=== PATIENT | male | born 1970 | race Caucasian/White ===

== ENCOUNTER 2016-11-02 23:47 | Emergency (ER) | payer MEDICARE ==
[~2016-11-02 23:47] MED LIST: ATOR10TA60 PO; DIVA250T6 PO; FAMO20TA5 PO; FENO160T PO; FURO20TA3 PO; GABA-587 PO; HYDR25TA9 PO; INSU100I13 SQ; INSU100I15 SQ; LEVO75TA5 PO; LISI-334 PO; LORA-434 PO; METH10TA2 PO; POTA20TA4 PO; RAMI2.5C PO; SPIR25TA3 PO
[2016-11-03 00:22] LABS: BILIRUBIN,URINE NEGATIVE (NEG); GLUCOSE,URINE >=1000 mg/dL (NEG); NITRITE,URINE NEGATIVE (NEG); PH,URINE 5.5; PROTEIN,URINE NEGATIVE (NEG-TRACE); UROBILINOGEN,URINE 0.2 mg/dL (0.2 mg/dL)
[2016-11-03 00:28] LABS: RBC,URINE 0 /HPF (0-2); WBC,URINE OCC /HPF (0-4)
[2016-11-03 00:29] LABS: BACTERIA,URINE 0 /HPF (0-FEW); SQUAMOUS EPITHELIAL CELL,UR FEW /LPF
[2016-11-03] MEDS ORDERED: INSULIN REGULAR 100 UNIT/ML 10ML VIAL. IV ONE (00:30)
[2016-11-03] MEDS ORDERED: IV NORMAL SALINE 1000ML BAG 1,000 ML IV ONE ×2 (00:30)
[2016-11-03 00:54] LABS: BASO # 0.1 x10^3/uL (0.0-0.2); BASO % 2 % (0-3); EOS % 1 % (0-3); HEMATOCRIT 39.1 % (39.0-53.0); HEMOGLOBIN 13.2 g/dL (13.0-17.5); LYMPH # 2.3 x10^3/uL (1.0-4.8); LYMPH % 43 % (24-48); MEAN CORPUSCULAR HEMOGLOBIN 33 pg (25-35); MEAN CORPUSCULAR HGB CONC 34 g/dL (31-37); MEAN CORPUSCULAR VOLUME 96 fL (79-100); MONO % 6 % (0-9); NEUT % 48 % (31-73); PLATELET COUNT 250 x10^3/uL (140-400); RED BLOOD COUNT 4.07 x10^6/uL (4.30-5.70); RED CELL DISTRIBUTION WIDTH 14.5 % (11.5-14.5); WHITE BLOOD COUNT 5.3 x10^3/uL (4.0-11.0)
[2016-11-03 01:05] LABS: CALCIUM 8.8 mg/dL (8.5-10.1); CREATININE 0.8 mg/dL (0.7-1.3); POTASSIUM 3.2 mmol/L (3.5-5.1)
[2016-11-03 01:11] LABS: ETHANOL 198 mg/dL (0-10)
[2016-11-03 01:12] LABS: ALBUMIN 3.7 g/dL (3.4-5.0); ALBUMIN/GLOBULIN RATIO 0.9 (1.0-1.7); TOTAL BILIRUBIN 0.3 mg/dL (0.2-1.0); TOTAL PROTEIN 7.6 g/dL (6.4-8.2)
--- NOTE | 2016-11-03 01:12 | PHYS DOC ---
Past Medical History Past Medical History: Diabetes-Type II Additional Past Medical Histor: Legally blind Past Surgical History: Other Additional Past Surgical Histo: Titanium plate placed to the right side due to crushed ribs. Alcohol Use: Heavy Drug Use: None Adult General Chief Complaint Chief Complaint: MECHANICAL FALL [facility] HPI Patient is a 46 year old male brought in by EMS for evaluation of mid back pain status post fall. Patient is obviously quite intoxicated and said he was walking and slipped and fell from a standing height and landed on his butt and now his mid back hurts. He says that he called 911 and EMS brought him in because his blood sugar was quite elevated. Patient denies any head neck chest abdomen or extremity pain or trauma. He is alert and oriented 3 however seem somewhat sleepy due to his intoxication. He says that he only drank 2 mixed drinks. Review of Systems Review of Systems Constitutional: Denies fever or chills [] Eyes: Denies change in visual acuity, redness, or eye pain [] HENT: Denies nasal congestion or sore throat [] Respiratory: Denies cough or shortness of breath [] Cardiovascular: No additional information not addressed in HPI [] GI: Denies abdominal pain, nausea, vomiting, bloody stools or diarrhea [] : Denies dysuria or hematuria [] Musculoskeletal: + back pain. No joint pain [] Integument: Denies rash or skin lesions [] Neurologic: Denies headache, focal weakness or sensory changes [] Current Medications Current Medications Current Medications Medications (Trade) Dose Ordered Sig/Cole Start Time Stop Time Status Last Admin Dose Admin Insulin Human Regular (Novolin R Vial) 10 unit 1X ONCE 11/03/16 00:30 11/03/16 00:31 DC 11/03/16 00:56 10 UNIT Potassium Chloride (Klor-Con) 40 meq 1X ONCE 11/03/16 01:30 11/03/16 01:31 UNV Sodium Chloride (Iv Sodium Chloride 0.9% 1000ml Bag) 1,000 ml @ 1,000 mls/hr 1X ONCE 11/03/16 00:30 11/03/16 01:29 11/03/16 00:17 1,000 MLS/HR Allergies Allergies Allergies Coded Allergies Type Severity Reaction Last Updated Verified amoxicillin Allergy Intermediate 08/30/15 Yes clavulanic acid Allergy Intermediate 2/26/16 Yes Physical Exam Physical Exam Constitutional: Well developed, well nourished, no acute distress, non-toxic appearance. [] HENT: Normocephalic, atraumatic, bilateral external ears normal, oropharynx moist, no oral exudates, nose normal. [] Eyes: PERRLA, EOMI, conjunctiva normal, no discharge. [] Neck: Normal range of motion, no tenderness, supple, no stridor. [] Cardiovascular:Heart rate regular rhythm, no murmur [] Lungs & Thorax: Bilateral breath sounds clear to auscultation [] Abdomen: Bowel sounds normal, soft, no tenderness, no masses, no pulsatile masses. [] Skin: Warm, dry, no erythema, no rash. [] Back: + midline t spine tenderness, no CVA tenderness. [] Extremities: No tenderness, no cyanosis, no clubbing, ROM intact, no edema. [] Neurologic: Alert and oriented X 3, normal motor function, normal sensory function, no focal deficits noted. [] Current Patient Data Vital Signs Vital Signs Date Time Temp Pulse Resp B/P Pulse Ox O2 Delivery O2 Flow Rate FiO2 11/02/16 23:59 98.1 103 18 133/71 96 Room Air 98.1 Lab Values Laboratory Tests Test 11/03/16 00:15 11/03/16 00:46 Urine Collection Type Unknown Urine Color Yellow Urine Clarity Cloudy Urine pH 5.5 Urine Specific [place] >=1.030 Urine Protein Negativemg/dL (NEG-TRACE) Urine Glucose (UA) >=1000mg/dL (NEG) Urine Ketones (Stick) 15mg/dL (NEG) Urine Blood Negative (NEG) Urine Nitrite Negative (NEG) Urine Bilirubin Negative (NEG) Urine Urobilinogen Dipstick 0.2mg/dL (0.2 mg/dL) Urine Leukocyte Esterase Negative (NEG) Urine RBC 0/HPF (0-2) Urine WBC Occ/HPF (0-4) Urine Squamous Epithelial Cells Few/LPF Urine Bacteria 0/HPF (0-FEW) White Blood Count 5.3x10^3/uL (4.0-11.0) Red Blood Count 4.07x10^6/uL (4.30-5.70) L Hemoglobin 13.2g/dL (13.0-17.5) Hematocrit 39.1% (39.0-53.0) Mean Corpuscular Volume 96fL (79-100) Mean Corpuscular Hemoglobin 33pg (25-35) Mean Corpuscular Hemoglobin Concent 34g/dL (31-37) Red Cell Distribution Width 14.5% (11.5-14.5) Platelet Count 250x10^3/uL (140-400) Neutrophils (%) (Auto) 48% (31-73) Lymphocytes (%) (Auto) 43% (24-48) Monocytes (%) (Auto) 6% (0-9) Eosinophils (%) (Auto) 1% (0-3) Basophils (%) (Auto) 2% (0-3) Neutrophils # (Auto) 2.5x10^3uL (1.8-7.7) Lymphocytes # (Auto) 2.3x10^3/uL (1.0-4.8) Monocytes # (Auto) 0.3x10^3/uL (0.0-1.1) Eosinophils # (Auto) 0.1x10^3/uL (0.0-0.7) Basophils # (Auto) 0.1x10^3/uL (0.0-0.2) Sodium Level 135mmol/L (136-145) L Potassium Level 3.2mmol/L (3.5-5.1) L Chloride Level 97mmol/L (98-107) L Carbon Dioxide Level 25mmol/L (21-32) Anion Gap 13 (6-14) Blood Urea Nitrogen 11mg/dL (8-26) Creatinine 0.8mg/dL (0.7-1.3) Estimated GFR (Cockcroft-Gault) 105.0 BUN/Creatinine Ratio 14 (6-20) Glucose Level 287mg/dL (70-99) H Calcium Level 8.8mg/dL (8.5-10.1) Total Bilirubin 0.3mg/dL (0.2-1.0) Aspartate Amino Transferase (AST) 38U/L (15-37) H Alanine Aminotransferase (ALT) 32U/L (16-63) Alkaline Phosphatase 80U/L (46-116) Total Protein 7.6g/dL (6.4-8.2) Albumin 3.7g/dL (3.4-5.0) Albumin/Globulin Ratio 0.9 (1.0-1.7) L Lipase 46U/L (73-393) L Salicylates Level 5.8mg/dL (2.8-20.0) Salicylate Last Dose Date Salicylate Last Dose Time Acetaminophen Level < 2mcg/ml (10-30) L Acetaminophen Last Dose Date Acetaminophen Last Dose Time Ethyl Alcohol Level 198mg/dL (0-10) H Laboratory Tests 11/03/16 00:46 Laboratory Tests 11/03/16 00:46 EKG EKG [] Radiology/Procedures Radiology/Procedures T-spine x-rays show no obvious fracture or soft tissue deformity. He has some dilated bowel loops on AP view. Course & Med Decision Making Course & Med Decision Making Patient has very minor trauma mechanism. We will get some screening labs treat him with IV fluids and insulin and then reassess. Patient has no signs of ketoacidosis. There is a few ketones in his urine. He is not acidotic. Patient given several liters of fluids and insulin and now his blood sugar is closer to normal. His repeat neurologic exam is normal and he says that he has no pain now. Patient is alert and oriented 3 and can ambulate with a steady gait so he'll be discharged home. Patient aware and agreeable with plan for discharge and close understanding of the need for short- term follow-up and strict ER return precautions discussed worsening pain fever vomiting or vaginal concerns. Dragon Disclaimer Dragon Disclaimer This electronic medical record was generated, in whole or in part, using a voice recognition dictation system. 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
[2016-11-03 01:30] VITALS: BP 138/90
[2016-11-03] MEDS ORDERED: POTASSIUM CHLORIDE 20 MEQ TABLET.ER. PO ONE (02:00)
--- NOTE | 2016-11-03 07:44 | RAD ---
Indication pain associated with a fall. AP and lateral views of the thoracic spine were obtained as well as a swimmer's view and a view targeted to the thoracolumbar junction. Postoperative changes are seen associated with multiple right ribs. There is suspect bony demineralization. An acute bony finding is not seen. IMPRESSION: No acute bony finding
== END 2016-11-03 01:45 | disposition home or self-care (01) ==
LOC: ER 23:47
DX: E11.65 Type 2 diabetes mellitus with hyperglycemia (principal); E87.6 Hypokalemia; M54.6 Pain in thoracic spine; F10.10 Alcohol abuse, uncomplicated; W01.0XXA Fall on same level from slipping, tripping and stumbling without subsequent striking against object, initial encounter; Y93.89 Activity, other specified; Y99.8 Other external cause status; Y92.89 Other specified places as the place of occurrence of the external cause
CPT/HCPCS: 36415; 72072; 80053; 80305; 80320; 81001; 83690; 85027; 96361; 96374; 99285; G6038; J1815; J7030; G0480; 80196

== ENCOUNTER 2016-11-07 16:53 | Inpatient (IN) | payer MEDICARE ==
[~2016-11-07] VITALS: Ht 167.6 cm; Wt 70.8 kg
[2016-11-07] VITALS (10 sets, daily range): BP systolic 83–150; BP diastolic 60–99
[~2016-11-07 16:53] MED LIST changes: +NALOXONE 2 MG/2 ML DISP.SYRIN. ONE
[2016-11-07] MEDS ORDERED: MIDAZOLAM PREMIX 100 ML IV ONE ×2 (17:24→18:45)
[2016-11-07] MEDS ORDERED: INSULIN REGULAR IV ONE (17:34)
[2016-11-07 18:07] LABS: BILIRUBIN,URINE MODERATE (NEG); GLUCOSE,URINE >=1000 mg/dL (NEG); NITRITE,URINE NEGATIVE (NEG); PROTEIN,URINE 30 mg/dL (NEG-TRACE)
[2016-11-07] MEDS: IV NORMAL SALINE 1000ML BAG 1,000 ML IV SCH ×2 (18:07→19:00)
[2016-11-07 18:10] LABS: HCO3 ABG 5 mmol/L (21-28); PCO2 ABG 25 mmHg (35-46); PO2 ABG 134 mmHg (75-108); SAT O2 ABG 98 % (92-99)
[2016-11-07 18:11] LABS: FIO2 ABG 40; PH ABG 6.87 (7.35-7.45)
[2016-11-07 18:14] LABS: BARBITURATES NEG (NEG); BENZODIAZEPINES NEG (NEG); CANNABINOIDS NEG (NEG); COCAINE NEG (NEG); METHADONE NEG (NEG); OPIATES NEG (NEG); PHENCYCLIDINE NEG (NEG)
[2016-11-07 18:19] LABS: BACTERIA,URINE 0 /HPF (0-FEW); RBC,URINE RARE /HPF (0-2); SQUAMOUS EPITHELIAL CELL,UR OCC /LPF; WBC,URINE 0 /HPF (0-4)
[2016-11-07] MEDS ORDERED: ETOMIDATE 20 MG/10 ML VIAL. IV ONE (18:22)
[2016-11-07] MEDS ORDERED: MIDAZOLAM HCL/PF 5 MG/5 ML VIAL. ONE (18:23)
[2016-11-07] MEDS ORDERED: ROCURONIUM 50 MG/5 ML VIAL. ONE (18:23)
--- NOTE | 2016-11-07 18:24 | PHYS DOC ---
Past Medical History Past Medical History: Alcoholism, Diabetes-Type II Additional Past Medical Histor: Legally blind Past Surgical History: Other Additional Past Surgical Histo: Titanium plate placed to the right side due to crushed ribs. Alcohol Use: Heavy Drug Use: None Adult General Chief Complaint Chief Complaint: ALTERED MENTAL STATUS HPI HPI Patient is a 46 year old male who presents with altered mental status. Patient brought to the emergency department by EMS. Patient found in an obtunded state on their arrival. Unknown who contacted EMS. Patient has history of Diabetes Mellitus. Patient currently responsive only to painful stimulus and does not provide any history. EMS states patient has been admitted in the past for DKA. Note history of alcoholism. No further information available at time patient was received. Review of Systems Review of Systems Unable to obtain, patient obtunded. Current Medications Current Medications Current Medications Medications (Trade) Dose Ordered Sig/Cole Start Time Stop Time Status Last Admin Dose Admin Insulin Human Regular 0 ml @ As Directed STK-MED ONCE 11/07/16 17:34 11/07/16 17:35 DC Levofloxacin/ Dextrose 150 ml @ 100 mls/hr Q24H 11/07/16 17:00 11/07/16 21:16 100 MLS/HR Midazolam HCl 100 ml @ As Directed STK-MED ONCE 11/07/16 17:24 11/07/16 17:25 DC Allergies Allergies Allergies Coded Allergies Type Severity Reaction Last Updated Verified amoxicillin Allergy Intermediate 08/30/15 Yes clavulanic acid Allergy Intermediate 08/30/15 Yes Physical Exam Physical Exam Constitutional: Obtunded, tachypneic, moans to painful stimulus. [] HENT: Normocephalic, atraumatic, bilateral external ears normal, dry mucous membranes Eyes: Pupils 4 mm, non reactive (hx of blindness), conjunctiva normal, no discharge. [] Neck: Normal range of motion, no tenderness, supple, no stridor. [] Cardiovascular:Tachycardia, normal rhythm, no murmur [] Lungs & Thorax: Tachypneic, breath sounds clear, no chest wall bruising [] Abdomen: Bowel sounds normal, soft, no tenderness, no masses, no pulsatile masses. [] Skin: Warm, dry, no erythema, no rash. [] Extremities: No tenderness, no cyanosis, no clubbing, thready distal pulses. [] Neurologic: Obtunded, moans to painful stimulus and moves all extremities to painful stimulus. [] Current Patient Data Vital Signs Vital Signs Date Time Temp Pulse Resp B/P (MAP) Pulse Ox O2 Delivery O2 Flow Rate FiO2 11/07/16 17:45 128 24 138/86 (103) 99 Ventilator 11/07/16 16:58 98.4 6.0 98.4 Lab Values Laboratory Tests Test 11/07/16 17:00 11/07/16 17:22 11/07/16 17:50 Lactic Acid Level 1.6 mmol/L (0.4-2.0) O2 Saturation 98 % (92-99) Arterial Blood pH 6.87 (7.35-7.45) *L Arterial Blood pCO2 at Patient Temp 25 mmHg (35-46) L Arterial Blood pO2 at Patient Temp 134 mmHg (75-108) H Arterial Blood HCO3 5 mmol/L (21-28) L Arterial Blood Base Excess -28 mmol/L (-3-3) L FiO2 40 Urine Collection Type Unknown Urine Color Yellow Urine Clarity Cloudy Urine pH 5.0 Urine Specific [place] 1.025 Urine Protein 30 mg/dL (NEG-TRACE) Urine Glucose (UA) >=1000 mg/dL (NEG) Urine Ketones (Stick) 40 mg/dL (NEG) Urine Blood Moderate (NEG) Urine Nitrite Negative (NEG) Urine Bilirubin Moderate (NEG) Urine Urobilinogen Dipstick 1.0 mg/dL (0.2 mg/dL) Urine Leukocyte Esterase Negative (NEG) Urine RBC Rare /HPF (0-2) Urine WBC 0 /HPF (0-4) Urine Squamous Epithelial Cells Occ /LPF Urine Bacteria 0 /HPF (0-FEW) Urine Opiates Screen Neg (NEG) Urine Methadone Screen Neg (NEG) Urine Barbiturates Neg (NEG) Urine Phencyclidine Screen Neg (NEG) Urine Amphetamine/Methamphetamine Pos (NEG) Urine Benzodiazepines Screen Neg (NEG) Urine Cocaine Screen Neg (NEG) Urine Cannabinoids Screen Neg (NEG) Urine Ethyl Alcohol Neg (NEG) EKG EKG Interpreted by me: Heart rate 123, sinus tachycardia, normal intervals, normal axis, T-wave inversions in the inferior leads and in V5 and V6, no acute ST elevations or depressions [] Radiology/Procedures Radiology/Procedures 1 view AP chest x-ray interpreted by me: ET and CVL in adequate position, Left lower lobe infiltrate, no pneumothorax [facility] [address] [place] [address] IMAGING REPORT Signed PATIENT: HELEN GONZALEZ ACCOUNT: [id number] : 1970 LOCATION: [address] [place] [address] AGE: 46 SEX: M EXAM STATUS: ADM IN ORD. PHYSICIAN: YOGI CANDELARIA MD REASON: altered mental status PROCEDURE: CT HEAD WO CONTRAST PROCEDURE CT of the head without contrast HISTORY Altered mental status. TECHNIQUE Axial noncontrast images obtained through the head. Exposure: One or more of the following individualized dose reduction techniques were utilized for this exam: 1. Automated exposure control. 2. Adjustment of the mA and/or kV according to patient size. 3. Use of iterative reconstruction technique. COMPARISON None FINDINGS No evidence of acute intracranial hemorrhage. No mass effect, midline shift or abnormal extra-axial fluid collection. Mild enlargement of ventricles and sulci compatible with mild atrophy, for the patient's age. The orbits appear unremarkable. No evidence of depressed skull fracture. Partially visualized sinuses are clear. IMPRESSION 1. Mild atrophy and ventriculomegaly, considering the patient's age. 2. No evidence of acute intracranial pathology. Electronically signed by: Bismark Ballesteros MD (November 07, 2016 19:19:04) DICTATED and SIGNED BY: BISMARK BALLESTEROS MD DATE: 11/07/161917 CC: YOGI CANDELARIA MD; SHAILESH BANKS MD; KEILA DEL REAL MD ~ [] Course & Med Decision Making Course & Med Decision Making Pertinent Labs and Imaging studies reviewed. (See chart for details) Due to hemodynamic instability and severely depressed mental status, the patient was moved into the trauma bay for aggressive intervention. The patient was then intubated for airway protection and to improve oxygenation. The patient initially had an IO placed in the right humerus as peripheral IV axis was unable to be obtained. After patient was intubated, the patient was prepped for a central venous line placed in the right IJ as outlined in the procedure note. The patient was found to be severely acidotic with a pH level of 6.8. Patient's blood sugar was found to be over 700. Patient was aggressively hydrated with IV fluids and was switched to a sodium bicarbonate drip due to severe acidosis. Patient's heart rate is improving and blood pressure has remained stable. Patient will be admitted to ICU for further care and initiation of insulin drip. I spoke with Dr. Del Real who accepted care of patient in hospital. I also spoke with Dr. Hewitt of pulmonology who agreed to consult on patient in hospital. Critical care time excluding procedures: 60 minutes Dragon Disclaimer Dragon Disclaimer This electronic medical record was generated, in whole or in part, using a voice recognition dictation system. Intubation Procedure Intub Indication: Patient in coma, hypoxic, airway protection necessary Consent: Unable to give consent due to emergent nature. Medications Used: see nursing note Procedure: The patient was placed in the appropriate position. Intubation was performed under direct laryngoscopy with placement of a 7.5 endotracheal tube. Secured at 20 cm at the lip. Initial confirmation of placement included bilateral breath sounds, tube fogging, adequate chest rise, adequate pulse oximetry reading. A chest x-ray to verify correct placement of the tube showed appropriate tube position. The patient tolerated the procedure well. Complications: none. Central Line Placement Proc Central Line Indication: Vascular access, critical illness Consent: The patient provided consent for this procedure. Procedure: The patient was positioned appropriately and the skin over the right internal jugular was prepped and draped in a sterile fashion. Local anesthesia was used. Ultrasound guidance utilized. A large bore needle was used to identify the vein. A guide wire was then inserted into the vein through the needle. A triple lumen catheter was then inserted into the vessel over the guide wire using the Seldinger technique. All ports showed good, free flowing blood return and were flushed with saline solution. The catheter was then securely fastened to the skin with sutures and covered with a sterile dressing. A post procedure X-ray was ordered. The patient tolerated the procedure well. Complications: none. [] Departure Departure Impression: Primary Impression: Acute metabolic encephalopathy Additional Impressions: Diabetic ketoacidosis Community acquired bacterial pneumonia Acute renal failure Disposition: 09 ADMITTED INPATIENT Admitting Physician: Keila Del Real Condition: CRITICAL Referrals: SHAILESH BANKS MD (PCP) Problem Qualifiers Additional Impressions: Diabetic ketoacidosis Diabetes mellitus type: type 2 Diabetes mellitus complication detail: with coma Qualified Codes: E13.11 - Other specified diabetes mellitus with ketoacidosis with coma Acute renal failure Acute renal failure type: unspecified Qualified Codes: N17.9 - Acute kidney failure, unspecified FOLAND,YOGI J MD November 07, 2016 18:24
[2016-11-07] MEDS ORDERED: SODIUM BICARBONATE VIAL 150 MEQ in IV STERILE WATER 1,000 ML IV SCH (18:30)
[2016-11-07] MEDS ORDERED: ONDANSETRON PF 4 MG/2 ML VIAL. IV PRN (18:45)
[2016-11-07] MEDS ORDERED: levOFLOXacin PER PHARMACY. MC PRN (18:45)
[2016-11-07 19:02] LABS: ALBUMIN 3.4 g/dL (3.4-5.0); ALBUMIN/GLOBULIN RATIO 0.8 (1.0-1.7); CALCIUM 9.4 mg/dL (8.5-10.1); CREATININE 2.1 mg/dL (0.7-1.3); GFR 34.5; TOTAL BILIRUBIN 0.8 mg/dL (0.2-1.0); TOTAL PROTEIN 7.6 g/dL (6.4-8.2)
--- NOTE | 2016-11-07 19:20 | RAD ---
PROCEDURE CT of the head without contrast HISTORY Altered mental status. TECHNIQUE Axial noncontrast images obtained through the head. Exposure: One or more of the following individualized dose reduction techniques were utilized for this exam: 1. Automated exposure control. 2. Adjustment of the mA and/or kV according to patient size. 3. Use of iterative reconstruction technique. COMPARISON None FINDINGS No evidence of acute intracranial hemorrhage. No mass effect, midline shift or abnormal extra-axial fluid collection. Mild enlargement of ventricles and sulci compatible with mild atrophy, for the patient's age. The orbits appear unremarkable. No evidence of depressed skull fracture. Partially visualized sinuses are clear. IMPRESSION 1. Mild atrophy and ventriculomegaly, considering the patient's age. 2. No evidence of acute intracranial pathology. Electronically signed by: Bismark Ballesteros MD (November 07, 2016 19:19:04)
[2016-11-07] MEDS ORDERED: INSULIN REGULAR VIAL 150 UNIT in 0.9 % SODIUM CHLORIDE 150ML 150 ML IV PRN (19:30)
[2016-11-07] MEDS: SODIUM BICARBONATE VIAL 50 MEQ in IV 1/2 NORMAL SALINE 1,000 ML IV PRN ×2 (20:02→23:25)
[2016-11-07 20:15] LABS: BASO # 0.1 x10^3/uL (0.0-0.2); BASO % 0 % (0-3); EOS % 0 % (0-3); HEMATOCRIT 41.7 % (39.0-53.0); HEMOGLOBIN 13.6 g/dL (13.0-17.5); LYMPH # 0.9 x10^3/uL (1.0-4.8); LYMPH % 3 % (24-48); MEAN CORPUSCULAR HEMOGLOBIN 32 pg (25-35); MEAN CORPUSCULAR HGB CONC 33 g/dL (31-37); MEAN CORPUSCULAR VOLUME 98 fL (79-100); MONO % 6 % (0-9); NEUT % 90 % (31-73); PLATELET COUNT 220 x10^3/uL (140-400); RED BLOOD COUNT 4.25 x10^6/uL (4.30-5.70); RED CELL DISTRIBUTION WIDTH 14.4 % (11.5-14.5); WHITE BLOOD COUNT 25.1 x10^3/uL (4.0-11.0)
[2016-11-07] MEDS ORDERED: IV NORMAL SALINE 1000ML BAG 1,000 ML IV ONE (20:30)
[2016-11-07 20:38] LABS: PLT ESTIMATE ADEQUATE (ADEQUATE)
[2016-11-07 20:39] LABS: TOXIC GRANULATION MOD
[2016-11-07] MEDS: PANTOPRAZOLE IV PUSH 40 MG VIAL. IVP SCH (21:16)
--- NOTE | 2016-11-07 21:34 | PDOC1 ---
History and Physical Date of Admission Date of Admission DATE: 11/07/16 TIME: 21:27 Identification/Chief Complaint Chief Complaint comatose Problems: Source Source: Chart review, Patient History of Present Illness History of Present Illness pt found obtunded at home by family, Hx per EMS and ER physician, pt seen in ICU tonight, no family in room, no numbers available Past Medical History Cardiovascular: No pertinent hx Pulmonary: No pertinent hx CENTRAL NERVOUS SYSTEM: Other GI: Other Hepatobiliary: No pertinent hx Psych: Anxiety Endocrine: Diabetes Past Surgical History Past Surgical History: No pertinent history Family History Family History: Alzheimer's Disease, Heart Disease Social History Smoke: No ALCOHOL: other (reported heavy per prior history) Drugs: None Current Problem List Problem List Problems Medical Problems: (1) Acute metabolic encephalopathy Status: Acute Problems: Current Medications Current Medications Current Medications Midazolam HCl 100 ml @ As Directed STK-MED ONCE IV ; Start 11/07/16 at 17:24; Stop 11/07/16 at 17:25; Status DC Insulin Human Regular 0 ml @ As Directed STK-MED ONCE IV ; Start 11/07/16 at 17: 34; Stop 11/07/16 at 17:35; Status DC Sodium Chloride 1,000 ml @ 1,000 mls/hr Q1H IV Last administered on 11/07/16 18:07; Start 11/07/16 at 18:00; Stop 11/07/16 at 19:59; Status DC Sodium Bicarbonate 150 meq/Sterile Water 1,150 ml @ 250 mls/hr Q4H36M IV Last administered on 11/07/16 18:31; Start 11/07/16 at 18:30; Stop 11/07/16 at 19:44; Status DC Etomidate (Amidate) 20 mg STK-MED ONCE IV ; Start 11/07/16 at 18:22; Stop at 18:23; Status DC Midazolam HCl (Versed) 5 mg STK-MED ONCE .ROUTE ; Start 11/07/16 at 18:23; Stop 11/07/16 at 18:24; Status DC Rocuronium [place] (Zemuron) 50 mg STK-MED ONCE .ROUTE ; Start 11/07/16 at 18:23 ; Stop 11/07/16 at 18:24; Status DC Midazolam HCl 100 ml @ 0 mls/hr 1X ONCE IV Last administered on 11/07/16 18:42 ; Start 11/07/16 at 18:45; Stop 11/07/16 at 18:46; Status DC Levofloxacin/ Dextrose (Levaquin Per Pharmacy) 1 each PRN DAILY PRN MC SEE COMMENTS; Start 11/07/16 at 18:45 Levofloxacin/ Dextrose 150 ml @ 100 mls/hr Q24H IV Last administered on 21:16; Start 11/07/16 at 17:00 Ondansetron HCl (Zofran) 4 mg PRN Q8HRS PRN IV NAUSEA/VOMITING; Start 11/07/16 at 18:45; Stop 11/08/16 at 18:44 Insulin Human Regular 150 unit/ Sodium Chloride 151.5 ml @ 0 mls/hr CONT PRN PRN IV PER PROTOCOL Last administered on 11/07/16 19:59; Start 11/07/16 at 19:30 Sodium Bicarbonate 50 meq/Sodium Chloride 1,050 ml @ 500 mls/hr Q2H6M PRN IV Infuse for pH < 6.95; Start 11/07/16 at 22:30; Stop 11/07/16 at 22:30; Status DC Sodium Bicarbonate 50 meq/Sodium Chloride 1,050 ml @ 500 mls/hr PRN Q2HR PRN IV Infuse for pH < 6.95; Start 11/07/16 at 22:30; Stop 11/07/16 at 22:30; Status DC Sodium Bicarbonate 50 meq/Sodium Chloride 1,050 ml @ 500 mls/hr PRN Q2HR PRN IV Infuse for pH < 6.95 Last administered on 11/07/16 20:02; Start 11/07/16 at 19 :45 Sodium Chloride 1,000 ml @ 1,000 mls/hr 1X ONCE IV Last administered on 20:00; Start 11/07/16 at 20:30; Stop 11/07/16 at 21:29 Pantoprazole Sodium (Protonix Vial) 40 mg BID IVP Last administered on 21:16; Start 11/07/16 at 21:00 Active Scripts Active Klor-Con M20 (Potassium Chloride) 20 Meq Tab.er.prt 20 Meq PO BIDWMEALS Reported Apidra Solostar (Insulin Glulisine) 100 Unit/1 Ml Insuln.pen 17 Unit SQ TIDACHC Lantus Solostar (Insulin Glargine,Hum.rec.anlog) 100 Unit/1 Ml Insuln.pen 48 Unit SQ QHS Spironolactone 25 Mg Tablet 25 Mg PO DAILY Gabapentin 400 Mg Capsule 400 Mg PO DAILY Ramipril 2.5 Mg Capsule 2.5 Mg PO DAILY Levothyroxine Sodium 75 Mcg Tablet 75 Mcg PO DAILYAC Fenofibrate 160 Mg Tablet 160 Mg PO DAILY Lisinopril 20 Mg Tablet 20 Mg PO DAILY Furosemide 20 Mg Tablet 20 Mg PO QODAY Hydrochlorothiazide Tablet (Hydrochlorothiazide) 25 Mg Tablet 25 Mg PO DAILY Atorvastatin Calcium 10 Mg Tablet 10 Mg PO DAILY Allergies Allergies: Coded Allergies: amoxicillin (Verified Allergy, Intermediate, 08/30/15) clavulanic acid (Verified Allergy, Intermediate, 08/30/15) ROS Review of System unable Physical Exam General: severe distress, Other HEENT: Atraumatic, PERRLA, Other (dry,, eyes sunken) Lungs: Other (mech sound of vent, good peak pressures, Sa02 OK on 40%) Heart: S1S2, other (tachy) Abdomen: Normal bowel sounds, Soft (thin) Rectal Exam: not examined Extremities: No clubbing, Other (pulses present but not impressive ) Skin: Other (poor nail care, very long toenails) Neuro: Other Psych/Mental Status: Other Vitals Vitals Vital Signs Date Time Temp Pulse Resp B/P (MAP) Pulse Ox O2 Delivery O2 Flow Rate FiO2 11/07/16 19:00 100 24 102/63 (76) 100 Ventilator 11/07/16 16:58 98.4 6.0 98.4 Labs Labs Laboratory Tests Test 11/07/16 17:00 11/07/16 17:22 11/07/16 17:50 11/07/16 18:29 Lactic Acid Level 1.6 mmol/L (0.4-2.0) O2 Saturation 98 % (92-99) Arterial Blood pH 6.87 (7.35-7.45) Arterial Blood pCO2 at Patient Temp 25 mmHg (35-46) Arterial Blood pO2 at Patient Temp 134 mmHg (75-108) Arterial Blood HCO3 5 mmol/L (21-28) Arterial Blood Base Excess -28 mmol/L (-3-3) FiO2 40 Urine Collection Type Unknown Urine Color Yellow Urine Clarity Cloudy Urine pH 5.0 Urine Specific Zebulon 1.025 Urine Protein 30 mg/dL (NEG-TRACE) Urine Glucose (UA) >=1000 mg/dL (NEG) Urine Ketones (Stick) 40 mg/dL (NEG) Urine Blood Moderate (NEG) Urine Nitrite Negative (NEG) Urine Bilirubin Moderate (NEG) Urine Urobilinogen Dipstick 1.0 mg/dL (0.2 mg/dL) Urine Leukocyte Esterase Negative (NEG) Urine RBC Rare /HPF (0-2) Urine WBC 0 /HPF (0-4) Urine Squamous Epithelial Cells Occ /LPF Urine Bacteria 0 /HPF (0-FEW) Urine Opiates Screen Neg (NEG) Urine Methadone Screen Neg (NEG) Urine Barbiturates Neg (NEG) Urine Phencyclidine Screen Neg (NEG) Urine Amphetamine/Methamphetamine Pos (NEG) Urine Benzodiazepines Screen Neg (NEG) Urine Cocaine Screen Neg (NEG) Urine Cannabinoids Screen Neg (NEG) Urine Ethyl Alcohol Neg (NEG) Sodium Level 130 mmol/L (136-145) Potassium Level 6.0 mmol/L (3.5-5.1) Chloride Level 96 mmol/L (98-107) Carbon Dioxide Level 7 mmol/L (21-32) Anion Gap 27 (6-14) Blood Urea Nitrogen 42 mg/dL (8-26) Creatinine 2.1 mg/dL (0.7-1.3) Estimated GFR (Cockcroft-Gault) 34.5 BUN/Creatinine Ratio 20 (6-20) Glucose Level 766 mg/dL (70-99) Calcium Level 9.4 mg/dL (8.5-10.1) Total Bilirubin 0.8 mg/dL (0.2-1.0) Aspartate Amino Transf (AST/SGOT) 83 U/L (15-37) Alanine Aminotransferase (ALT/SGPT) 71 U/L (16-63) Alkaline Phosphatase 134 U/L (46-116) Ammonia 26 mcmol/L (11-34) Total Protein 7.6 g/dL (6.4-8.2) Albumin 3.4 g/dL (3.4-5.0) Albumin/Globulin Ratio 0.8 (1.0-1.7) Test 11/07/16 19:50 White Blood Count 25.1 x10^3/uL (4.0-11.0) Red Blood Count 4.25 x10^6/uL (4.30-5.70) Hemoglobin 13.6 g/dL (13.0-17.5) Hematocrit 41.7 % (39.0-53.0) Mean Corpuscular Volume 98 fL (79-100) Mean Corpuscular Hemoglobin 32 pg (25-35) Mean Corpuscular Hemoglobin Concent 33 g/dL (31-37) Red Cell Distribution Width 14.4 % (11.5-14.5) Platelet Count 220 x10^3/uL (140-400) Neutrophils (%) (Auto) 90 % (31-73) Lymphocytes (%) (Auto) 3 % (24-48) Monocytes (%) (Auto) 6 % (0-9) Eosinophils (%) (Auto) 0 % (0-3) Basophils (%) (Auto) 0 % (0-3) Neutrophils # (Auto) 22.6 x10^3uL (1.8-7.7) Lymphocytes # (Auto) 0.9 x10^3/uL (1.0-4.8) Monocytes # (Auto) 1.5 x10^3/uL (0.0-1.1) Eosinophils # (Auto) 0.0 x10^3/uL (0.0-0.7) Basophils # (Auto) 0.1 x10^3/uL (0.0-0.2) Segmented Neutrophils % 81 % (35-66) Band Neutrophils % 12 % (0-9) Lymphocytes % 4 % (24-48) Monocytes % 3 % (0-10) Toxic Granulation Mod Platelet Estimate Adequate (ADEQUATE) Laboratory Tests Test 11/07/16 17:00 11/07/16 17:22 11/07/16 17:50 11/07/16 18:29 Lactic Acid Level 1.6 mmol/L (0.4-2.0) O2 Saturation 98 % (92-99) Arterial Blood pH 6.87 (7.35-7.45) Arterial Blood pCO2 at Patient Temp 25 mmHg (35-46) Arterial Blood pO2 at Patient Temp 134 mmHg (75-108) Arterial Blood HCO3 5 mmol/L (21-28) Arterial Blood Base Excess -28 mmol/L (-3-3) FiO2 40 Urine Collection Type Unknown Urine Color Yellow Urine Clarity Cloudy Urine pH 5.0 Urine Specific Zebulon 1.025 Urine Protein 30 mg/dL (NEG-TRACE) Urine Glucose (UA) >=1000 mg/dL (NEG) Urine Ketones (Stick) 40 mg/dL (NEG) Urine Blood Moderate (NEG) Urine Nitrite Negative (NEG) Urine Bilirubin Moderate (NEG) Urine Urobilinogen Dipstick 1.0 mg/dL (0.2 mg/dL) Urine Leukocyte Esterase Negative (NEG) Urine RBC Rare /HPF (0-2) Urine WBC 0 /HPF (0-4) Urine Squamous Epithelial Cells Occ /LPF Urine Bacteria 0 /HPF (0-FEW) Urine Opiates Screen Neg (NEG) Urine Methadone Screen Neg (NEG) Urine Barbiturates Neg (NEG) Urine Phencyclidine Screen Neg (NEG) Urine Amphetamine/Methamphetamine Pos (NEG) Urine Benzodiazepines Screen Neg (NEG) Urine Cocaine Screen Neg (NEG) Urine Cannabinoids Screen Neg (NEG) Urine Ethyl Alcohol Neg (NEG) Sodium Level 130 mmol/L (136-145) Potassium Level 6.0 mmol/L (3.5-5.1) Chloride Level 96 mmol/L (98-107) Carbon Dioxide Level 7 mmol/L (21-32) Anion Gap 27 (6-14) Blood Urea Nitrogen 42 mg/dL (8-26) Creatinine 2.1 mg/dL (0.7-1.3) Estimated GFR (Cockcroft-Gault) 34.5 BUN/Creatinine Ratio 20 (6-20) Glucose Level 766 mg/dL (70-99) Calcium Level 9.4 mg/dL (8.5-10.1) Total Bilirubin 0.8 mg/dL (0.2-1.0) Aspartate Amino Transf (AST/SGOT) 83 U/L (15-37) Alanine Aminotransferase (ALT/SGPT) 71 U/L (16-63) Alkaline Phosphatase 134 U/L (46-116) Ammonia 26 mcmol/L (11-34) Total Protein 7.6 g/dL (6.4-8.2) Albumin 3.4 g/dL (3.4-5.0) Albumin/Globulin Ratio 0.8 (1.0-1.7) Test 11/07/16 19:50 White Blood Count 25.1 x10^3/uL (4.0-11.0) Red Blood Count 4.25 x10^6/uL (4.30-5.70) Hemoglobin 13.6 g/dL (13.0-17.5) Hematocrit 41.7 % (39.0-53.0) Mean Corpuscular Volume 98 fL (79-100) Mean Corpuscular Hemoglobin 32 pg (25-35) Mean Corpuscular Hemoglobin Concent 33 g/dL (31-37) Red Cell Distribution Width 14.4 % (11.5-14.5) Platelet Count 220 x10^3/uL (140-400) Neutrophils (%) (Auto) 90 % (31-73) Lymphocytes (%) (Auto) 3 % (24-48) Monocytes (%) (Auto) 6 % (0-9) Eosinophils (%) (Auto) 0 % (0-3) Basophils (%) (Auto) 0 % (0-3) Neutrophils # (Auto) 22.6 x10^3uL (1.8-7.7) Lymphocytes # (Auto) 0.9 x10^3/uL (1.0-4.8) Monocytes # (Auto) 1.5 x10^3/uL (0.0-1.1) Eosinophils # (Auto) 0.0 x10^3/uL (0.0-0.7) Basophils # (Auto) 0.1 x10^3/uL (0.0-0.2) Segmented Neutrophils % 81 % (35-66) Band Neutrophils % 12 % (0-9) Lymphocytes % 4 % (24-48) Monocytes % 3 % (0-10) Toxic Granulation Mod Platelet Estimate Adequate (ADEQUATE) VTE Prophylaxis Ordered VTE Prophylaxis Devices: No VTE Pharmacological Prophylaxi: Yes Assessment/Plan Assessment/Plan Acute metabolic acidosis, DKA acute combined respiratory failure, unable to compensate for metabolic acidosis , Acute metabolic encephalopathy, comatose on presentation, needed emergent intubation admit to ICU, DKA protocol SIRS, levaquin started, UA pending could be sepsis, Meth pos urine, could have been ill and taking Sudaphed, history unclear poor prognosis JAMIR DEL REAL MD November 07, 2016 21:33
[2016-11-07] MEDS ORDERED: SODIUM BICARBONATE VIAL 50 MEQ in IV 1/2 NORMAL SALINE 1,000 ML IV PRN ×4 (22:30)
[2016-11-07 22:52] LABS: HCO3 ABG 8 mmol/L (21-28); PO2 ABG 97 mmHg (75-108); SAT O2 ABG 98 % (92-99)
[2016-11-07 22:53] LABS: FIO2 ABG 40; PCO2 ABG 19 mmHg (35-46); PH ABG 7.28 (7.35-7.45)
[2016-11-07 23:01] LABS: CALCIUM 8.7 mg/dL (8.5-10.1); CREATININE 1.7 mg/dL (0.7-1.3); MAGNESIUM 1.3 mg/dL (1.8-2.4); PHOSPHORUS 1.9 mg/dL (2.6-4.7); POTASSIUM 3.2 mmol/L (3.5-5.1)
[2016-11-07] MEDS ORDERED: HALOPERIDOL LACTATE 5 MG/ML VIAL. IVP PRN (23:15)
[2016-11-07] MEDS ORDERED: SODIUM PHOSPHATE 20 MMOL in IV DEXTROSE 5% 250 ML IV PRN (23:30)
[2016-11-07] MEDS ORDERED: MAGNESIUM SULFATE 4GM 100 ML IV ONE (23:30)
[2016-11-07] MEDS ORDERED: IV NORMAL SALINE 1000ML BAG 1,000 ML IV SCH (23:30)
[2016-11-08] VITALS (24 sets, daily range): BP systolic 109–167; BP diastolic 62–103
[2016-11-08] MEDS: POTASSIUM CHLORIDE 20MEQ 50 ML IV SCH ×3 (00:15→02:08)
[2016-11-08] MEDS: IV DEXTROSE 5% - 0.9 % NACL 1,000 ML IV SCH ×6 (02:56→23:59)
[2016-11-08 04:53] LABS: BASO # 0.1 x10^3/uL (0.0-0.2); BASO % 0 % (0-3); EOS % 0 % (0-3); HEMATOCRIT 32.2 % (39.0-53.0); HEMOGLOBIN 11.2 g/dL (13.0-17.5); LYMPH # 1.5 x10^3/uL (1.0-4.8); LYMPH % 13 % (24-48); MEAN CORPUSCULAR HEMOGLOBIN 32 pg (25-35); MEAN CORPUSCULAR HGB CONC 35 g/dL (31-37); MEAN CORPUSCULAR VOLUME 94 fL (79-100); MONO % 9 % (0-9); NEUT % 78 % (31-73); PLATELET COUNT 140 x10^3/uL (140-400); RED BLOOD COUNT 3.44 x10^6/uL (4.30-5.70); RED CELL DISTRIBUTION WIDTH 13.9 % (11.5-14.5)
[2016-11-08 04:56] LABS: CALCIUM 8.4 mg/dL (8.5-10.1); CREATININE 1.3 mg/dL (0.7-1.3); POTASSIUM 3.7 mmol/L (3.5-5.1)
[2016-11-08] MEDS: MIDAZOLAM PREMIX 100 ML IV PRN ×2 (05:09→20:55)
[2016-11-08 05:24] LABS: MAGNESIUM 2.5 mg/dL (1.8-2.4); PHOSPHORUS 2.2 mg/dL (2.6-4.7)
[2016-11-08] MEDS ORDERED: SODIUM PHOSPHATE 20 MMOL in IV DEXTROSE 5% 250 ML IV ONE (06:00)
[2016-11-08] MEDS: INSULIN ASPART 300 UNITS/3 ML INSULN.PEN SQ SCH ×6 (06:00→23:58)
[2016-11-08] MEDS ORDERED: POTASSIUM CHLORIDE 10MEQ 100 ML IV PRN (06:00)
[2016-11-08] MEDS ORDERED: DEXTROSE 50% 25 GM / 50ML DISP.SYRIN. IV PRN (06:00)
[2016-11-08 07:34] LABS: HCO3 ABG 17 mmol/L (21-28); PCO2 ABG 30 mmHg (35-46); PH ABG 7.37 (7.35-7.45); PO2 ABG 134 mmHg (75-108); SAT O2 ABG 98 % (92-99)
[2016-11-08 07:37] LABS: FIO2 ABG 40
--- NOTE | 2016-11-08 08:28 | PDOC ---
Provider Note Provider Note [id number] acute resp fail abnl cxr pneumonia sbt when awake abx see orders ANDREY TUBBS MD November 08, 2016 08:28
[2016-11-08] MEDS ORDERED: FAMOTIDINE 20 MG/2 ML VIAL IVP SCH (09:00)
--- NOTE | 2016-11-08 09:03 | RAD ---
Indication respiratory failure. A single view of the chest was obtained. No prior imaging of the chest is available. Heart size and pulmonary vessels are within normal limits. There is volume loss in the left lower lobe compatible with pneumonia. There may be a small left pleural effusion. Right IJ catheter is noted. Endotracheal tube is appropriately positioned above the gely. Nasogastric tube is coiled in the body of the stomach. Postoperative changes involving multiple right ribs are noted. There is a probable orthopedic screw about the right shoulder. IMPRESSION: Appropriately positioned support tubes and catheters. Infiltrate, compatible with pneumonia, in the left lower lobe.
[2016-11-08] MEDS ORDERED: INSULIN ASPART 300 UNITS/3 ML INSULN.PEN SQ ONE (09:15)
[2016-11-08] MEDS: ENOXAPARIN 40 MG/0.4 ML SYRINGE. SQ SCH (09:21)
[2016-11-08] MEDS: PANTOPRAZOLE IV PUSH 40 MG VIAL. IVP SCH ×2 (09:21→20:55)
--- NOTE | 2016-11-08 09:37 | CONS ---
DATE OF CONSULTATION: REASON FOR CONSULTATION: I was asked to see this 46-year-old gentleman for acute respiratory failure. HISTORY OF PRESENT ILLNESS: The patient is currently on the ventilator and is sedated. All of the information was obtained from nursing staff and chart. He was found down and #[phone] was called. He was brought to the Emergency Room. He was not responding. He was intubated. He was found to have elevated blood sugar, not read by the Accu-Chek. He has positive amphetamine on his urine drug screen. He was started on insulin and IV fluid. He is currently on the ventilator and is sedated. He has a small amount of ET tube secretion. PAST MEDICAL HISTORY: Anxiety, diabetes mellitus, legally blind, and alcoholism. ALLERGIES: AMOXICILLIN, AUGMENTIN. MEDICATIONS: Currently, he is on insulin sliding scale, IV fluid, Levaquin, and Protonix. SOCIAL HISTORY: Positive for alcohol. FAMILY HISTORY: Positive for Alzheimer's. REVIEW OF SYSTEMS: As mentioned, as above. I have discussed the patient with RN. The patient is sedated. Other systems are otherwise negative. PHYSICAL EXAMINATION: GENERAL: This is a well-developed gentleman. VITAL SIGNS: His O2 saturation is 100%, respiratory rate 24, heart rate 111, blood pressure 148/84, and temperature 99.5. HEENT: Normocephalic, atraumatic. Pupils are equal, round, and reactive to light. He is orally intubated. Nose is clear. NECK: There is no JVD, lymphadenopathy, or thyromegaly. CARDIOVASCULAR: Tachycardic. CHEST: Inspection is normal. LUNGS: There are bibasilar crackles with dullness at the bases. ABDOMEN: Soft. Bowel sounds are good. There is no mass. EXTREMITIES: There is no edema. LYMPHATICS: There is no lymphadenopathy. NEUROLOGIC: He is sedated. SKIN: Chronic changes. LABORATORY DATA: I reviewed the following lab data: Chest x-ray shows left infiltrates/atelectasis. ET tube is in good position. His ABG this morning - pH 7.37, pCO2 30, and pO2 134. On admission, his ABG showed pH 6.8, pCO2 25, and pO2 134. This morning, sodium 140, potassium 3.7, chloride 109, CO2 21, glucose 128, BUN 32, and creatinine 1.3. On admission, WBC 25.1 - this morning 12, hemoglobin 11.2, and platelets 140. His urine drug screen is positive for amphetamine. IMPRESSION: 1. Acute respiratory failure, multifactorial in etiology. 2. Acute metabolic encephalopathy. 3. Abnormal chest x-ray. 4. Pneumonia. 5. ? Diabetic ketoacidosis. 6. Severe metabolic acidosis, improving. 7. Leukocytosis. 8. Diabetes mellitus. 9. Legally blind. 10. History of alcohol abuse. PLAN AND RECOMMENDATIONS: 1. Titrate FiO2 to keep O2 saturation to 94%. 2. Continue ventilator support. Ventilator setting was reviewed. I will decrease sedation to allow him to wake up. When he is fully awake, we will do a spontaneous breathing trial. 3. Continue antibiotic. 4. Sputum culture. 5. Start Lovenox for DVT prophylaxis. 6. Protonix for stress ulcer prophylaxis. 7. Check a chest x-ray now. I will review. 8. A.m. chest x-ray and ABG. 9. Elevate head of bed. 10. The findings and recommendations were discussed with RN and RC. Thank you very much for allowing me to participate in care of this very nice gentleman. ANDREY TUBBS M.D. DR: HUMBERTO/yesica JOB#: [id number] / [id number]
--- NOTE | 2016-11-08 09:47 | PDOC ---
PROGRESS NOTES Chief Complaint Chief Complaint Acute metabolic acidosis, DKA acute combined respiratory failure, did not compensate for metabolic acidosis, Acute metabolic encephalopathy, comatose on presentation, needed emergent intubation SIRS, Pneumonia. sepsis Legally blind. History of alcohol abuse. History of Present Illness History of Present Illness off DKA protocol, still on vent Vitals Vitals Vital Signs Date Time Temp Pulse Resp B/P (MAP) Pulse Ox O2 Delivery O2 Flow Rate FiO2 11/08/16 09:10 109 24 150/100 (117) 100 Ventilator 11/08/16 08:06 99.5 99.5 11/07/16 16:58 6.0 Physical Exam General: severe distress, Other Heart: No murmurs, Other (tachy) Lungs: Clear Abdomen: Normal bowel sounds, Soft Extremities: No clubbing, Other Skin: No rashes, Other Labs LABS Laboratory Tests Test 11/07/16 17:00 11/07/16 17:22 11/07/16 17:50 11/07/16 18:29 Lactic Acid Level 1.6 mmol/L (0.4-2.0) O2 Saturation 98 % (92-99) Arterial Blood pH 6.87 (7.35-7.45) Arterial Blood pCO2 at Patient Temp 25 mmHg (35-46) Arterial Blood pO2 at Patient Temp 134 mmHg (75-108) Arterial Blood HCO3 5 mmol/L (21-28) Arterial Blood Base Excess -28 mmol/L (-3-3) FiO2 40 Urine Collection Type Unknown Urine Color Yellow Urine Clarity Cloudy Urine pH 5.0 Urine Specific [place] 1.025 Urine Protein 30 mg/dL (NEG-TRACE) Urine Glucose (UA) >=1000 mg/dL (NEG) Urine Ketones (Stick) 40 mg/dL (NEG) Urine Blood Moderate (NEG) Urine Nitrite Negative (NEG) Urine Bilirubin Moderate (NEG) Urine Urobilinogen Dipstick 1.0 mg/dL (0.2 mg/dL) Urine Leukocyte Esterase Negative (NEG) Urine RBC Rare /HPF (0-2) Urine WBC 0 /HPF (0-4) Urine Squamous Epithelial Cells Occ /LPF Urine Bacteria 0 /HPF (0-FEW) Urine Opiates Screen Neg (NEG) Urine Methadone Screen Neg (NEG) Urine Barbiturates Neg (NEG) Urine Phencyclidine Screen Neg (NEG) Urine Amphetamine/Methamphetamine Pos (NEG) Urine Benzodiazepines Screen Neg (NEG) Urine Cocaine Screen Neg (NEG) Urine Cannabinoids Screen Neg (NEG) Urine Ethyl Alcohol Neg (NEG) Sodium Level 130 mmol/L (136-145) Potassium Level 6.0 mmol/L (3.5-5.1) Chloride Level 96 mmol/L (98-107) Carbon Dioxide Level 7 mmol/L (21-32) Anion Gap 27 (6-14) Blood Urea Nitrogen 42 mg/dL (8-26) Creatinine 2.1 mg/dL (0.7-1.3) Estimated GFR (Cockcroft-Gault) 34.5 BUN/Creatinine Ratio 20 (6-20) Glucose Level 766 mg/dL (70-99) Calcium Level 9.4 mg/dL (8.5-10.1) Total Bilirubin 0.8 mg/dL (0.2-1.0) Aspartate Amino Transf (AST/SGOT) 83 U/L (15-37) Alanine Aminotransferase (ALT/SGPT) 71 U/L (16-63) Alkaline Phosphatase 134 U/L (46-116) Ammonia 26 mcmol/L (11-34) Total Protein 7.6 g/dL (6.4-8.2) Albumin 3.4 g/dL (3.4-5.0) Albumin/Globulin Ratio 0.8 (1.0-1.7) Test 11/07/16 19:50 11/07/16 20:55 11/07/16 22:03 11/07/16 22:28 White Blood Count 25.1 x10^3/uL (4.0-11.0) Red Blood Count 4.25 x10^6/uL (4.30-5.70) Hemoglobin 13.6 g/dL (13.0-17.5) Hematocrit 41.7 % (39.0-53.0) Mean Corpuscular Volume 98 fL (79-100) Mean Corpuscular Hemoglobin 32 pg (25-35) Mean Corpuscular Hemoglobin Concent 33 g/dL (31-37) Red Cell Distribution Width 14.4 % (11.5-14.5) Platelet Count 220 x10^3/uL (140-400) Neutrophils (%) (Auto) 90 % (31-73) Lymphocytes (%) (Auto) 3 % (24-48) Monocytes (%) (Auto) 6 % (0-9) Eosinophils (%) (Auto) 0 % (0-3) Basophils (%) (Auto) 0 % (0-3) Neutrophils # (Auto) 22.6 x10^3uL (1.8-7.7) Lymphocytes # (Auto) 0.9 x10^3/uL (1.0-4.8) Monocytes # (Auto) 1.5 x10^3/uL (0.0-1.1) Eosinophils # (Auto) 0.0 x10^3/uL (0.0-0.7) Basophils # (Auto) 0.1 x10^3/uL (0.0-0.2) Segmented Neutrophils % 81 % (35-66) Band Neutrophils % 12 % (0-9) Lymphocytes % 4 % (24-48) Monocytes % 3 % (0-10) Toxic Granulation Mod Platelet Estimate Adequate (ADEQUATE) Glucose Level 616 mg/dL (70-99) O2 Saturation 98 % (92-99) Arterial Blood pH 7.28 (7.35-7.45) Arterial Blood pCO2 at Patient Temp 19 mmHg (35-46) Arterial Blood pO2 at Patient Temp 97 mmHg (75-108) Arterial Blood HCO3 8 mmol/L (21-28) Arterial Blood Base Excess -16 mmol/L (-3-3) FiO2 40 Glucose (Fingerstick) 428 mg/dL (70-99) Test 11/07/16 22:30 11/07/16 23:31 11/08/16 00:37 11/08/16 01:40 Sodium Level 137 mmol/L (136-145) Potassium Level 3.2 mmol/L (3.5-5.1) Chloride Level 102 mmol/L (98-107) Carbon Dioxide Level 10 mmol/L (21-32) Anion Gap 25 (6-14) Blood Urea Nitrogen 39 mg/dL (8-26) Creatinine 1.7 mg/dL (0.7-1.3) Estimated GFR (Cockcroft-Gault) 44.0 Glucose Level 448 mg/dL (70-99) Calcium Level 8.7 mg/dL (8.5-10.1) Phosphorus Level 1.9 mg/dL (2.6-4.7) Magnesium Level 1.3 mg/dL (1.8-2.4) Glucose (Fingerstick) 408 mg/dL (70-99) 355 mg/dL (70-99) 258 mg/dL (70-99) Test 11/08/16 02:47 11/08/16 04:25 11/08/16 04:30 11/08/16 05:08 Glucose (Fingerstick) 185 mg/dL (70-99) 127 mg/dL (70-99) White Blood Count 12.0 x10^3/uL (4.0-11.0) Red Blood Count 3.44 x10^6/uL (4.30-5.70) Hemoglobin 11.2 g/dL (13.0-17.5) Hematocrit 32.2 % (39.0-53.0) Mean Corpuscular Volume 94 fL (79-100) Mean Corpuscular Hemoglobin 32 pg (25-35) Mean Corpuscular Hemoglobin Concent 35 g/dL (31-37) Red Cell Distribution Width 13.9 % (11.5-14.5) Platelet Count 140 x10^3/uL (140-400) Neutrophils (%) (Auto) 78 % (31-73) Lymphocytes (%) (Auto) 13 % (24-48) Monocytes (%) (Auto) 9 % (0-9) Eosinophils (%) (Auto) 0 % (0-3) Basophils (%) (Auto) 0 % (0-3) Neutrophils # (Auto) 9.3 x10^3uL (1.8-7.7) Lymphocytes # (Auto) 1.5 x10^3/uL (1.0-4.8) Monocytes # (Auto) 1.0 x10^3/uL (0.0-1.1) Eosinophils # (Auto) 0.0 x10^3/uL (0.0-0.7) Basophils # (Auto) 0.1 x10^3/uL (0.0-0.2) Sodium Level 140 mmol/L (136-145) Potassium Level 3.7 mmol/L (3.5-5.1) Chloride Level 109 mmol/L (98-107) Carbon Dioxide Level 21 mmol/L (21-32) Anion Gap 10 (6-14) Blood Urea Nitrogen 32 mg/dL (8-26) Creatinine 1.3 mg/dL (0.7-1.3) Estimated GFR (Cockcroft-Gault) 60.0 Glucose Level 128 mg/dL (70-99) Calcium Level 8.4 mg/dL (8.5-10.1) Phosphorus Level 2.2 mg/dL (2.6-4.7) Magnesium Level 2.5 mg/dL (1.8-2.4) Test 11/08/16 06:13 11/08/16 08:00 11/08/16 09:03 Glucose (Fingerstick) 123 mg/dL (70-99) 301 mg/dL (70-99) O2 Saturation 98 % (92-99) Arterial Blood pH 7.37 (7.35-7.45) Arterial Blood pCO2 at Patient Temp 30 mmHg (35-46) Arterial Blood pO2 at Patient Temp 134 mmHg (75-108) Arterial Blood HCO3 17 mmol/L (21-28) Arterial Blood Base Excess -7 mmol/L (-3-3) FiO2 40 Review of Systems Review of Systems unable Assessment and Plan Assessmemt and Plan Problems Medical Problems: (1) Acute metabolic encephalopathy Status: Acute (2) Acute renal failure Status: Acute (3) Community acquired bacterial pneumonia Status: Acute (4) Diabetic ketoacidosis Status: Acute Problems: Comment Review of Relevant I have reviewed the following items karol (where applicable) has been applied. Labs Laboratory Tests Test 11/07/16 17:00 11/07/16 17:22 11/07/16 17:50 11/07/16 18:29 Lactic Acid Level 1.6 mmol/L (0.4-2.0) O2 Saturation 98 % (92-99) Arterial Blood pH 6.87 (7.35-7.45) Arterial Blood pCO2 at Patient Temp 25 mmHg (35-46) Arterial Blood pO2 at Patient Temp 134 mmHg (75-108) Arterial Blood HCO3 5 mmol/L (21-28) Arterial Blood Base Excess -28 mmol/L (-3-3) FiO2 40 Urine Collection Type Unknown Urine Color Yellow Urine Clarity Cloudy Urine pH 5.0 Urine Specific [place] 1.025 Urine Protein 30 mg/dL (NEG-TRACE) Urine Glucose (UA) >=1000 mg/dL (NEG) Urine Ketones (Stick) 40 mg/dL (NEG) Urine Blood Moderate (NEG) Urine Nitrite Negative (NEG) Urine Bilirubin Moderate (NEG) Urine Urobilinogen Dipstick 1.0 mg/dL (0.2 mg/dL) Urine Leukocyte Esterase Negative (NEG) Urine RBC Rare /HPF (0-2) Urine WBC 0 /HPF (0-4) Urine Squamous Epithelial Cells Occ /LPF Urine Bacteria 0 /HPF (0-FEW) Urine Opiates Screen Neg (NEG) Urine Methadone Screen Neg (NEG) Urine Barbiturates Neg (NEG) Urine Phencyclidine Screen Neg (NEG) Urine Amphetamine/Methamphetamine Pos (NEG) Urine Benzodiazepines Screen Neg (NEG) Urine Cocaine Screen Neg (NEG) Urine Cannabinoids Screen Neg (NEG) Urine Ethyl Alcohol Neg (NEG) Sodium Level 130 mmol/L (136-145) Potassium Level 6.0 mmol/L (3.5-5.1) Chloride Level 96 mmol/L (98-107) Carbon Dioxide Level 7 mmol/L (21-32) Anion Gap 27 (6-14) Blood Urea Nitrogen 42 mg/dL (8-26) Creatinine 2.1 mg/dL (0.7-1.3) Estimated GFR (Cockcroft-Gault) 34.5 BUN/Creatinine Ratio 20 (6-20) Glucose Level 766 mg/dL (70-99) Calcium Level 9.4 mg/dL (8.5-10.1) Total Bilirubin 0.8 mg/dL (0.2-1.0) Aspartate Amino Transf (AST/SGOT) 83 U/L (15-37) Alanine Aminotransferase (ALT/SGPT) 71 U/L (16-63) Alkaline Phosphatase 134 U/L (46-116) Ammonia 26 mcmol/L (11-34) Total Protein 7.6 g/dL (6.4-8.2) Albumin 3.4 g/dL (3.4-5.0) Albumin/Globulin Ratio 0.8 (1.0-1.7) Test 11/07/16 19:50 11/07/16 20:55 11/07/16 22:03 11/07/16 22:28 White Blood Count 25.1 x10^3/uL (4.0-11.0) Red Blood Count 4.25 x10^6/uL (4.30-5.70) Hemoglobin 13.6 g/dL (13.0-17.5) Hematocrit 41.7 % (39.0-53.0) Mean Corpuscular Volume 98 fL (79-100) Mean Corpuscular Hemoglobin 32 pg (25-35) Mean Corpuscular Hemoglobin Concent 33 g/dL (31-37) Red Cell Distribution Width 14.4 % (11.5-14.5) Platelet Count 220 x10^3/uL (140-400) Neutrophils (%) (Auto) 90 % (31-73) Lymphocytes (%) (Auto) 3 % (24-48) Monocytes (%) (Auto) 6 % (0-9) Eosinophils (%) (Auto) 0 % (0-3) Basophils (%) (Auto) 0 % (0-3) Neutrophils # (Auto) 22.6 x10^3uL (1.8-7.7) Lymphocytes # (Auto) 0.9 x10^3/uL (1.0-4.8) Monocytes # (Auto) 1.5 x10^3/uL (0.0-1.1) Eosinophils # (Auto) 0.0 x10^3/uL (0.0-0.7) Basophils # (Auto) 0.1 x10^3/uL (0.0-0.2) Segmented Neutrophils % 81 % (35-66) Band Neutrophils % 12 % (0-9) Lymphocytes % 4 % (24-48) Monocytes % 3 % (0-10) Toxic Granulation Mod Platelet Estimate Adequate (ADEQUATE) Glucose Level 616 mg/dL (70-99) O2 Saturation 98 % (92-99) Arterial Blood pH 7.28 (7.35-7.45) Arterial Blood pCO2 at Patient Temp 19 mmHg (35-46) Arterial Blood pO2 at Patient Temp 97 mmHg (75-108) Arterial Blood HCO3 8 mmol/L (21-28) Arterial Blood Base Excess -16 mmol/L (-3-3) FiO2 40 Glucose (Fingerstick) 428 mg/dL (70-99) Test 11/07/16 22:30 11/07/16 23:31 11/08/16 00:37 11/08/16 01:40 Sodium Level 137 mmol/L (136-145) Potassium Level 3.2 mmol/L (3.5-5.1) Chloride Level 102 mmol/L (98-107) Carbon Dioxide Level 10 mmol/L (21-32) Anion Gap 25 (6-14) Blood Urea Nitrogen 39 mg/dL (8-26) Creatinine 1.7 mg/dL (0.7-1.3) Estimated GFR (Cockcroft-Gault) 44.0 Glucose Level 448 mg/dL (70-99) Calcium Level 8.7 mg/dL (8.5-10.1) Phosphorus Level 1.9 mg/dL (2.6-4.7) Magnesium Level 1.3 mg/dL (1.8-2.4) Glucose (Fingerstick) 408 mg/dL (70-99) 355 mg/dL (70-99) 258 mg/dL (70-99) Test 11/08/16 02:47 11/08/16 04:25 11/08/16 04:30 11/08/16 05:08 Glucose (Fingerstick) 185 mg/dL (70-99) 127 mg/dL (70-99) White Blood Count 12.0 x10^3/uL (4.0-11.0) Red Blood Count 3.44 x10^6/uL (4.30-5.70) Hemoglobin 11.2 g/dL (13.0-17.5) Hematocrit 32.2 % (39.0-53.0) Mean Corpuscular Volume 94 fL (79-100) Mean Corpuscular Hemoglobin 32 pg (25-35) Mean Corpuscular Hemoglobin Concent 35 g/dL (31-37) Red Cell Distribution Width 13.9 % (11.5-14.5) Platelet Count 140 x10^3/uL (140-400) Neutrophils (%) (Auto) 78 % (31-73) Lymphocytes (%) (Auto) 13 % (24-48) Monocytes (%) (Auto) 9 % (0-9) Eosinophils (%) (Auto) 0 % (0-3) Basophils (%) (Auto) 0 % (0-3) Neutrophils # (Auto) 9.3 x10^3uL (1.8-7.7) Lymphocytes # (Auto) 1.5 x10^3/uL (1.0-4.8) Monocytes # (Auto) 1.0 x10^3/uL (0.0-1.1) Eosinophils # (Auto) 0.0 x10^3/uL (0.0-0.7) Basophils # (Auto) 0.1 x10^3/uL (0.0-0.2) Sodium Level 140 mmol/L (136-145) Potassium Level 3.7 mmol/L (3.5-5.1) Chloride Level 109 mmol/L (98-107) Carbon Dioxide Level 21 mmol/L (21-32) Anion Gap 10 (6-14) Blood Urea Nitrogen 32 mg/dL (8-26) Creatinine 1.3 mg/dL (0.7-1.3) Estimated GFR (Cockcroft-Gault) 60.0 Glucose Level 128 mg/dL (70-99) Calcium Level 8.4 mg/dL (8.5-10.1) Phosphorus Level 2.2 mg/dL (2.6-4.7) Magnesium Level 2.5 mg/dL (1.8-2.4) Test 11/08/16 06:13 11/08/16 08:00 11/08/16 09:03 Glucose (Fingerstick) 123 mg/dL (70-99) 301 mg/dL (70-99) O2 Saturation 98 % (92-99) Arterial Blood pH 7.37 (7.35-7.45) Arterial Blood pCO2 at Patient Temp 30 mmHg (35-46) Arterial Blood pO2 at Patient Temp 134 mmHg (75-108) Arterial Blood HCO3 17 mmol/L (21-28) Arterial Blood Base Excess -7 mmol/L (-3-3) FiO2 40 Laboratory Tests Test 11/07/16 17:00 11/07/16 17:22 11/07/16 17:50 11/07/16 18:29 Lactic Acid Level 1.6 mmol/L (0.4-2.0) O2 Saturation 98 % (92-99) Arterial Blood pH 6.87 (7.35-7.45) Arterial Blood pCO2 at Patient Temp 25 mmHg (35-46) Arterial Blood pO2 at Patient Temp 134 mmHg (75-108) Arterial Blood HCO3 5 mmol/L (21-28) Arterial Blood Base Excess -28 mmol/L (-3-3) FiO2 40 Urine Collection Type Unknown Urine Color Yellow Urine Clarity Cloudy Urine pH 5.0 Urine Specific [place] 1.025 Urine Protein 30 mg/dL (NEG-TRACE) Urine Glucose (UA) >=1000 mg/dL (NEG) Urine Ketones (Stick) 40 mg/dL (NEG) Urine Blood Moderate (NEG) Urine Nitrite Negative (NEG) Urine Bilirubin Moderate (NEG) Urine Urobilinogen Dipstick 1.0 mg/dL (0.2 mg/dL) Urine Leukocyte Esterase Negative (NEG) Urine RBC Rare /HPF (0-2) Urine WBC 0 /HPF (0-4) Urine Squamous Epithelial Cells Occ /LPF Urine Bacteria 0 /HPF (0-FEW) Urine Opiates Screen Neg (NEG) Urine Methadone Screen Neg (NEG) Urine Barbiturates Neg (NEG) Urine Phencyclidine Screen Neg (NEG) Urine Amphetamine/Methamphetamine Pos (NEG) Urine Benzodiazepines Screen Neg (NEG) Urine Cocaine Screen Neg (NEG) Urine Cannabinoids Screen Neg (NEG) Urine Ethyl Alcohol Neg (NEG) Sodium Level 130 mmol/L (136-145) Potassium Level 6.0 mmol/L (3.5-5.1) Chloride Level 96 mmol/L (98-107) Carbon Dioxide Level 7 mmol/L (21-32) Anion Gap 27 (6-14) Blood Urea Nitrogen 42 mg/dL (8-26) Creatinine 2.1 mg/dL (0.7-1.3) Estimated GFR (Cockcroft-Gault) 34.5 BUN/Creatinine Ratio 20 (6-20) Glucose Level 766 mg/dL (70-99) Calcium Level 9.4 mg/dL (8.5-10.1) Total Bilirubin 0.8 mg/dL (0.2-1.0) Aspartate Amino Transf (AST/SGOT) 83 U/L (15-37) Alanine Aminotransferase (ALT/SGPT) 71 U/L (16-63) Alkaline Phosphatase 134 U/L (46-116) Ammonia 26 mcmol/L (11-34) Total Protein 7.6 g/dL (6.4-8.2) Albumin 3.4 g/dL (3.4-5.0) Albumin/Globulin Ratio 0.8 (1.0-1.7) Test 11/07/16 19:50 11/07/16 20:55 11/07/16 22:03 11/07/16 22:28 White Blood Count 25.1 x10^3/uL (4.0-11.0) Red Blood Count 4.25 x10^6/uL (4.30-5.70) Hemoglobin 13.6 g/dL (13.0-17.5) Hematocrit 41.7 % (39.0-53.0) Mean Corpuscular Volume 98 fL (79-100) Mean Corpuscular Hemoglobin 32 pg (25-35) Mean Corpuscular Hemoglobin Concent 33 g/dL (31-37) Red Cell Distribution Width 14.4 % (11.5-14.5) Platelet Count 220 x10^3/uL (140-400) Neutrophils (%) (Auto) 90 % (31-73) Lymphocytes (%) (Auto) 3 % (24-48) Monocytes (%) (Auto) 6 % (0-9) Eosinophils (%) (Auto) 0 % (0-3) Basophils (%) (Auto) 0 % (0-3) Neutrophils # (Auto) 22.6 x10^3uL (1.8-7.7) Lymphocytes # (Auto) 0.9 x10^3/uL (1.0-4.8) Monocytes # (Auto) 1.5 x10^3/uL (0.0-1.1) Eosinophils # (Auto) 0.0 x10^3/uL (0.0-0.7) Basophils # (Auto) 0.1 x10^3/uL (0.0-0.2) Segmented Neutrophils % 81 % (35-66) Band Neutrophils % 12 % (0-9) Lymphocytes % 4 % (24-48) Monocytes % 3 % (0-10) Toxic Granulation Mod Platelet Estimate Adequate (ADEQUATE) Glucose Level 616 mg/dL (70-99) O2 Saturation 98 % (92-99) Arterial Blood pH 7.28 (7.35-7.45) Arterial Blood pCO2 at Patient Temp 19 mmHg (35-46) Arterial Blood pO2 at Patient Temp 97 mmHg (75-108) Arterial Blood HCO3 8 mmol/L (21-28) Arterial Blood Base Excess -16 mmol/L (-3-3) FiO2 40 Glucose (Fingerstick) 428 mg/dL (70-99) Test 11/07/16 22:30 11/07/16 23:31 11/08/16 00:37 11/08/16 01:40 Sodium Level 137 mmol/L (136-145) Potassium Level 3.2 mmol/L (3.5-5.1) Chloride Level 102 mmol/L (98-107) Carbon Dioxide Level 10 mmol/L (21-32) Anion Gap 25 (6-14) Blood Urea Nitrogen 39 mg/dL (8-26) Creatinine 1.7 mg/dL (0.7-1.3) Estimated GFR (Cockcroft-Gault) 44.0 Glucose Level 448 mg/dL (70-99) Calcium Level 8.7 mg/dL (8.5-10.1) Phosphorus Level 1.9 mg/dL (2.6-4.7) Magnesium Level 1.3 mg/dL (1.8-2.4) Glucose (Fingerstick) 408 mg/dL (70-99) 355 mg/dL (70-99) 258 mg/dL (70-99) Test 11/08/16 02:47 11/08/16 04:25 11/08/16 04:30 11/08/16 05:08 Glucose (Fingerstick) 185 mg/dL (70-99) 127 mg/dL (70-99) White Blood Count 12.0 x10^3/uL (4.0-11.0) Red Blood Count 3.44 x10^6/uL (4.30-5.70) Hemoglobin 11.2 g/dL (13.0-17.5) Hematocrit 32.2 % (39.0-53.0) Mean Corpuscular Volume 94 fL (79-100) Mean Corpuscular Hemoglobin 32 pg (25-35) Mean Corpuscular Hemoglobin Concent 35 g/dL (31-37) Red Cell Distribution Width 13.9 % (11.5-14.5) Platelet Count 140 x10^3/uL (140-400) Neutrophils (%) (Auto) 78 % (31-73) Lymphocytes (%) (Auto) 13 % (24-48) Monocytes (%) (Auto) 9 % (0-9) Eosinophils (%) (Auto) 0 % (0-3) Basophils (%) (Auto) 0 % (0-3) Neutrophils # (Auto) 9.3 x10^3uL (1.8-7.7) Lymphocytes # (Auto) 1.5 x10^3/uL (1.0-4.8) Monocytes # (Auto) 1.0 x10^3/uL (0.0-1.1) Eosinophils # (Auto) 0.0 x10^3/uL (0.0-0.7) Basophils # (Auto) 0.1 x10^3/uL (0.0-0.2) Sodium Level 140 mmol/L (136-145) Potassium Level 3.7 mmol/L (3.5-5.1) Chloride Level 109 mmol/L (98-107) Carbon Dioxide Level 21 mmol/L (21-32) Anion Gap 10 (6-14) Blood Urea Nitrogen 32 mg/dL (8-26) Creatinine 1.3 mg/dL (0.7-1.3) Estimated GFR (Cockcroft-Gault) 60.0 Glucose Level 128 mg/dL (70-99) Calcium Level 8.4 mg/dL (8.5-10.1) Phosphorus Level 2.2 mg/dL (2.6-4.7) Magnesium Level 2.5 mg/dL (1.8-2.4) Test 11/08/16 06:13 11/08/16 08:00 11/08/16 09:03 Glucose (Fingerstick) 123 mg/dL (70-99) 301 mg/dL (70-99) O2 Saturation 98 % (92-99) Arterial Blood pH 7.37 (7.35-7.45) Arterial Blood pCO2 at Patient Temp 30 mmHg (35-46) Arterial Blood pO2 at Patient Temp 134 mmHg (75-108) Arterial Blood HCO3 17 mmol/L (21-28) Arterial Blood Base Excess -7 mmol/L (-3-3) FiO2 40 Medications Current Medications Midazolam HCl 100 ml @ As Directed STK-MED ONCE IV ; Start 11/07/16 at 17:24; Stop 11/07/16 at 17:25; Status DC Insulin Human Regular 0 ml @ As Directed STK-MED ONCE IV ; Start 11/07/16 at 17: 34; Stop 11/07/16 at 17:35; Status DC Sodium Chloride 1,000 ml @ 1,000 mls/hr Q1H IV Last administered on 11/07/16t 18:07; Start 11/07/16 at 18:00; Stop 11/07/16 at 19:59; Status DC Sodium Bicarbonate 150 meq/Sterile Water 1,150 ml @ 250 mls/hr Q4H36M IV Last administered on 11/07/16 18:31; Start 11/07/16 at 18:30; Stop 11/07/16 at 19:44; Status DC Etomidate (Amidate) 20 mg STK-MED ONCE IV ; Start 11/07/16 at 18:22; Stop at 18:23; Status DC Midazolam HCl (Versed) 5 mg STK-MED ONCE .ROUTE ; Start 11/07/16 at 18:23; Stop 11/07/16 at 18:24; Status DC Rocuronium [place] (Zemuron) 50 mg STK-MED ONCE .ROUTE ; Start 11/07/16 at 18:23 ; Stop 11/07/16 at 18:24; Status DC Midazolam HCl 100 ml @ 0 mls/hr 1X ONCE IV Last administered on 11/07/16 18:42 ; Start 11/07/16 at 18:45; Stop 11/07/16 at 18:46; Status DC Levofloxacin/ Dextrose (Levaquin Per Pharmacy) 1 each PRN DAILY PRN MC SEE COMMENTS; Start 11/07/16 at 18:45 Levofloxacin/ Dextrose 150 ml @ 100 mls/hr Q24H IV Last administered on 21:16; Start 11/07/16 at 17:00 Ondansetron HCl (Zofran) 4 mg PRN Q8HRS PRN IV NAUSEA/VOMITING; Start 11/07/16 at 18:45; Stop 11/08/16 at 18:44 Insulin Human Regular 150 unit/ Sodium Chloride 151.5 ml @ 0 mls/hr CONT PRN PRN IV PER PROTOCOL Last administered on 11/07/16 19:59; Start 11/07/16 at 19:30 ; Stop 11/08/16 at 06:06; Status DC Sodium Bicarbonate 50 meq/Sodium Chloride 1,050 ml @ 500 mls/hr Q2H6M PRN IV Infuse for pH < 6.95; Start 11/07/16 at 22:30; Stop 11/07/16 at 22:30; Status DC Sodium Bicarbonate 50 meq/Sodium Chloride 1,050 ml @ 500 mls/hr PRN Q2HR PRN IV Infuse for pH < 6.95; Start 11/07/16 at 22:30; Stop 11/07/16 at 22:30; Status DC Sodium Bicarbonate 50 meq/Sodium Chloride 1,050 ml @ 500 mls/hr PRN Q2HR PRN IV Infuse for pH < 6.95 Last administered on 11/07/16 23:25; Start 11/07/16 at 19 :45; Stop 11/08/16 at 01:59; Status DC Sodium Chloride 1,000 ml @ 1,000 mls/hr 1X ONCE IV Last administered on 20:00; Start 11/07/16 at 20:30; Stop 11/07/16 at 21:29; Status DC Pantoprazole Sodium (Protonix Vial) 40 mg BID IVP Last administered on 09:21; Start 11/07/16 at 21:00 Potassium Chloride 50 ml @ 50 mls/hr Q1H IV Last administered on 11/08/16 02:08 ; Start 11/08/16 at 00:00; Stop 11/08/16 at 02:59; Status DC Magnesium Sulfate/ Dextrose 100 ml @ 25 mls/hr 1X ONCE IV Last administered on 11/08/16 00:12; Start 11/07/16 at 23:30; Stop 11/08/16 at 03:29; Status DC Haloperidol Lactate (Haldol) 2 mg PRN Q2HRS PRN IVP AGITATION; Start 11/07/16 at 23:15 Sodium Chloride 1,000 ml @ 250 mls/hr Q4H IV Last administered on 11/08/16 00: 08; Start 11/07/16 at 23:30; Stop 11/08/16 at 02:53; Status DC Sodium Phosphate 20 mmol/Dextrose 256.6667 ml @ 62.5 mls/hr 1X PRN PRN IV SEE COMMENTS Last administered on 11/08/16 00:17; Start 11/07/16 at 23:30; Stop at 06:10; Status DC Midazolam HCl 100 ml @ 0 mls/hr CONT PRN IV SEE I/O RECORD Last administered on 11/08/16 05:09; Start 11/07/16 at 23:30 Dextrose/Sodium Chloride 1,000 ml @ 250 mls/hr Q4H IV Last administered on 11/08 07:07; Start 11/08/16 at 03:00 Sodium Phosphate 20 mmol/Dextrose 256.6667 ml @ 64.167 m... 1X ONCE IV Last administered on 11/08/16 05:46; Start 11/08/16 at 06:00; Stop 11/08/16 at 09:59 Potassium Chloride 100 ml @ 100 mls/hr PRN Q1HR PRN IV SEE COMMENTS; Start 11/08/16 at 06:00; Stop 11/08/16 at 06:07; Status DC Insulin Detemir (Levemir) 48 units QHS SQ ; Start 11/08/16 at 21:00 Insulin Aspart (Novolog) 0-7 UNITS Q6HRS SQ ; Start 11/08/16 at 06:00 Dextrose (Dextrose 50%-Water Syringe) 12.5 gm PRN Q15MIN PRN IV SEE COMMENTS; Start 11/08/16 at 06:00 Famotidine (Pepcid) 20 mg BID IVP ; Start 11/08/16 at 09:00; Stop 11/08/16 at 09: 00; Status DC Enoxaparin Sodium (Lovenox 40mg Syringe) 40 mg Q24H SQ Last administered on 11/08 09:21; Start 11/08/16 at 09:00 Insulin Aspart (Novolog) 17 units TIDAC SQ ; Start 11/08/16 at 11:30 Insulin Aspart (Novolog) 20 units 1X ONCE SQ Last administered on 11/08/16 09: 27; Start 11/08/16 at 09:15; Stop 11/08/16 at 09:16; Status DC Active Scripts Active Klor-Con M20 (Potassium Chloride) 20 Meq Tab.er.prt 20 Meq PO BIDWMEALS Reported Apidra Solostar (Insulin Glulisine) 100 Unit/1 Ml Insuln.pen 17 Unit SQ TIDACHC Lantus Solostar (Insulin Glargine,Hum.rec.anlog) 100 Unit/1 Ml Insuln.pen 48 Unit SQ QHS Spironolactone 25 Mg Tablet 25 Mg PO DAILY Gabapentin 400 Mg Capsule 400 Mg PO DAILY Ramipril 2.5 Mg Capsule 2.5 Mg PO DAILY Levothyroxine Sodium 75 Mcg Tablet 75 Mcg PO DAILYAC Fenofibrate 160 Mg Tablet 160 Mg PO DAILY Lisinopril 20 Mg Tablet 20 Mg PO DAILY Furosemide 20 Mg Tablet 20 Mg PO QODAY Hydrochlorothiazide Tablet (Hydrochlorothiazide) 25 Mg Tablet 25 Mg PO DAILY Atorvastatin Calcium 10 Mg Tablet 10 Mg PO DAILY Vitals/I & O Vital Sign - Last 24 Hours 11/07/16 11/07/16 11/07/16 11/07/16 16:58 16:58 17:00 17:14 Temp 98.4 98.4 Pulse 116 116 Resp 25 23 B/P (MAP) 112/76 (88) 112/76 (88) 117/74 (88) Pulse Ox 100 98 99 O2 Delivery Nasal Cannula Ventilator Ventilator O2 Flow Rate 6.0 11/07/16 11/07/16 11/07/16 11/07/16 17:15 17:30 17:45 18:00 Pulse 132 128 128 124 Resp 23 23 24 23 B/P (MAP) 111/73 (86) 140/85 (103) 138/86 (103) 154/87 (109) Pulse Ox 98 99 99 100 O2 Delivery Ventilator Ventilator Ventilator Ventilator 11/07/16 11/07/16 11/07/16 11/07/16 18:15 18:30 18:45 19:00 Pulse 120 100 100 100 Resp 25 34 23 24 B/P (MAP) 143/89 (107) 128/85 (99) 133/85 (101) 102/63 (76) Pulse Ox 100 100 100 100 O2 Delivery Ventilator Ventilator Ventilator Ventilator 11/07/16 11/07/16 11/07/16 11/07/16 19:30 19:45 19:45 20:00 Temp 97.5 97.5 Pulse 122 118 114 Resp 24 24 24 B/P (MAP) 83/61 (68) 90/60 (70) 91/63 (72) Pulse Ox 100 100 100 O2 Delivery Ventilator Ventilator Mechanical Ventilator Ventilator 11/07/16 11/07/16 11/07/16 11/07/16 20:15 20:30 21:00 21:30 Pulse 116 120 125 124 Resp 24 24 26 28 B/P (MAP) 113/87 (96) 132/84 (100) 150/99 (116) 133/95 (108) Pulse Ox 100 100 100 100 O2 Delivery Ventilator Ventilator Ventilator Ventilator 511/07/16 11/07/16 11/07/16 22:00 23:00 23:13 23:59 Pulse 124 123 Resp 24 30 B/P (MAP) 145/91 (109) 137/87 (104) Pulse Ox 100 99 96 O2 Delivery Ventilator Ventilator Ventilator Mechanical Ventilator 11/07/16 11/08/16 11/08/16 11/08/16 23:59 01:00 01:40 02:00 Temp 97.9 97.9 Pulse 117 116 110 Resp 30 30 30 B/P (MAP) 132/72 (92) 122/81 (95) 123/78 (93) Pulse Ox 99 96 95 100 O2 Delivery Ventilator Ventilator Ventilator Ventilator 11/08/16 11/08/16 11/08/16 11/08/16 03:00 03:53 04:00 04:24 Temp 99.6 99.6 Pulse 119 119 Resp 30 24 B/P (MAP) 109/73 (85) 114/76 (89) Pulse Ox 100 100 100 O2 Delivery Ventilator Ventilator Ventilator Mechanical Ventilator 11/08/16 11/08/16 11/08/16 11/08/16 05:00 05:55 06:00 07:00 Pulse 118 116 113 Resp 24 24 24 B/P (MAP) 138/78 (98) 141/82 (101) 138/82 (100) Pulse Ox 100 100 100 100 O2 Delivery Ventilator Ventilator Ventilator Ventilator 11/08/16 11/08/16 11/08/16 11/08/16 07:00 07:27 08:06 08:54 Temp 99.5 99.5 Pulse 111 Resp 24 B/P (MAP) 148/84 (105) Pulse Ox 100 40 100 O2 Delivery Mechanical Ventilator Ventilator Ventilator Ventilator 11/08/16 09:10 Pulse 109 Resp 24 B/P (MAP) 150/100 (117) Pulse Ox 100 O2 Delivery Ventilator Intake and Output 11/07/16 11/07/16 11/08/16 15:00 23:00 07:00 Intake Total 3488 ml 3566 ml Output Total 240 ml 1465 ml Balance 3248 ml 2101 ml JAMIR DEL REAL MD November 08, 2016 09:47
--- NOTE | 2016-11-08 10:17 | RAD ---
Indication respiratory failure. Single view of the chest was obtained and is compared to an examination one day earlier. Heart and pulmonary vessels are similar. Aeration of the left lung base has improved relative to the previous exam. Findings, previously, may have reflected atelectasis. A new finding in the chest is not seen. Endotracheal tube is appropriately positioned above the gely. Nasogastric tube is coiled in the body of the stomach. Right IJ catheter is noted. IMPRESSION: Appropriately positioned support tubes and catheters. Improved aeration of the left lower lobe. No new finding in the chest is seen.
--- NOTE | 2016-11-08 11:21 | PDOC ---
Infectious Disease Note Vital Sign Vital Signs Vital Signs Date Time Temp Pulse Resp B/P (MAP) Pulse Ox O2 Delivery O2 Flow Rate FiO2 11/08/16 09:10 109 24 150/100 (117) 100 Ventilator 11/08/16 08:06 99.5 99.5 11/07/16 16:58 6.0 Labs Lab Laboratory Tests Test 11/07/16 17:00 11/07/16 17:22 11/07/16 17:50 11/07/16 18:29 Lactic Acid Level 1.6 mmol/L (0.4-2.0) O2 Saturation 98 % (92-99) Arterial Blood pH 6.87 (7.35-7.45) Arterial Blood pCO2 at Patient Temp 25 mmHg (35-46) Arterial Blood pO2 at Patient Temp 134 mmHg (75-108) Arterial Blood HCO3 5 mmol/L (21-28) Arterial Blood Base Excess -28 mmol/L (-3-3) FiO2 40 Urine Collection Type Unknown Urine Color Yellow Urine Clarity Cloudy Urine pH 5.0 Urine Specific [place] 1.025 Urine Protein 30 mg/dL (NEG-TRACE) Urine Glucose (UA) >=1000 mg/dL (NEG) Urine Ketones (Stick) 40 mg/dL (NEG) Urine Blood Moderate (NEG) Urine Nitrite Negative (NEG) Urine Bilirubin Moderate (NEG) Urine Urobilinogen Dipstick 1.0 mg/dL (0.2 mg/dL) Urine Leukocyte Esterase Negative (NEG) Urine RBC Rare /HPF (0-2) Urine WBC 0 /HPF (0-4) Urine Squamous Epithelial Cells Occ /LPF Urine Bacteria 0 /HPF (0-FEW) Urine Opiates Screen Neg (NEG) Urine Methadone Screen Neg (NEG) Urine Barbiturates Neg (NEG) Urine Phencyclidine Screen Neg (NEG) Urine Amphetamine/Methamphetamine Pos (NEG) Urine Benzodiazepines Screen Neg (NEG) Urine Cocaine Screen Neg (NEG) Urine Cannabinoids Screen Neg (NEG) Urine Ethyl Alcohol Neg (NEG) Sodium Level 130 mmol/L (136-145) Potassium Level 6.0 mmol/L (3.5-5.1) Chloride Level 96 mmol/L (98-107) Carbon Dioxide Level 7 mmol/L (21-32) Anion Gap 27 (6-14) Blood Urea Nitrogen 42 mg/dL (8-26) Creatinine 2.1 mg/dL (0.7-1.3) Estimated GFR (Cockcroft-Gault) 34.5 BUN/Creatinine Ratio 20 (6-20) Glucose Level 766 mg/dL (70-99) Calcium Level 9.4 mg/dL (8.5-10.1) Total Bilirubin 0.8 mg/dL (0.2-1.0) Aspartate Amino Transf (AST/SGOT) 83 U/L (15-37) Alanine Aminotransferase (ALT/SGPT) 71 U/L (16-63) Alkaline Phosphatase 134 U/L (46-116) Ammonia 26 mcmol/L (11-34) Total Protein 7.6 g/dL (6.4-8.2) Albumin 3.4 g/dL (3.4-5.0) Albumin/Globulin Ratio 0.8 (1.0-1.7) Test 11/07/16 19:50 11/07/16 20:55 11/07/16 22:03 11/07/16 22:28 White Blood Count 25.1 x10^3/uL (4.0-11.0) Red Blood Count 4.25 x10^6/uL (4.30-5.70) Hemoglobin 13.6 g/dL (13.0-17.5) Hematocrit 41.7 % (39.0-53.0) Mean Corpuscular Volume 98 fL (79-100) Mean Corpuscular Hemoglobin 32 pg (25-35) Mean Corpuscular Hemoglobin Concent 33 g/dL (31-37) Red Cell Distribution Width 14.4 % (11.5-14.5) Platelet Count 220 x10^3/uL (140-400) Neutrophils (%) (Auto) 90 % (31-73) Lymphocytes (%) (Auto) 3 % (24-48) Monocytes (%) (Auto) 6 % (0-9) Eosinophils (%) (Auto) 0 % (0-3) Basophils (%) (Auto) 0 % (0-3) Neutrophils # (Auto) 22.6 x10^3uL (1.8-7.7) Lymphocytes # (Auto) 0.9 x10^3/uL (1.0-4.8) Monocytes # (Auto) 1.5 x10^3/uL (0.0-1.1) Eosinophils # (Auto) 0.0 x10^3/uL (0.0-0.7) Basophils # (Auto) 0.1 x10^3/uL (0.0-0.2) Segmented Neutrophils % 81 % (35-66) Band Neutrophils % 12 % (0-9) Lymphocytes % 4 % (24-48) Monocytes % 3 % (0-10) Toxic Granulation Mod Platelet Estimate Adequate (ADEQUATE) Glucose Level 616 mg/dL (70-99) O2 Saturation 98 % (92-99) Arterial Blood pH 7.28 (7.35-7.45) Arterial Blood pCO2 at Patient Temp 19 mmHg (35-46) Arterial Blood pO2 at Patient Temp 97 mmHg (75-108) Arterial Blood HCO3 8 mmol/L (21-28) Arterial Blood Base Excess -16 mmol/L (-3-3) FiO2 40 Glucose (Fingerstick) 428 mg/dL (70-99) Test 11/07/16 22:30 11/07/16 23:31 11/08/16 00:37 11/08/16 01:40 Sodium Level 137 mmol/L (136-145) Potassium Level 3.2 mmol/L (3.5-5.1) Chloride Level 102 mmol/L (98-107) Carbon Dioxide Level 10 mmol/L (21-32) Anion Gap 25 (6-14) Blood Urea Nitrogen 39 mg/dL (8-26) Creatinine 1.7 mg/dL (0.7-1.3) Estimated GFR (Cockcroft-Gault) 44.0 Glucose Level 448 mg/dL (70-99) Calcium Level 8.7 mg/dL (8.5-10.1) Phosphorus Level 1.9 mg/dL (2.6-4.7) Magnesium Level 1.3 mg/dL (1.8-2.4) Glucose (Fingerstick) 408 mg/dL (70-99) 355 mg/dL (70-99) 258 mg/dL (70-99) Test 11/08/16 02:47 11/08/16 04:25 11/08/16 04:30 11/08/16 05:08 Glucose (Fingerstick) 185 mg/dL (70-99) 127 mg/dL (70-99) White Blood Count 12.0 x10^3/uL (4.0-11.0) Red Blood Count 3.44 x10^6/uL (4.30-5.70) Hemoglobin 11.2 g/dL (13.0-17.5) Hematocrit 32.2 % (39.0-53.0) Mean Corpuscular Volume 94 fL (79-100) Mean Corpuscular Hemoglobin 32 pg (25-35) Mean Corpuscular Hemoglobin Concent 35 g/dL (31-37) Red Cell Distribution Width 13.9 % (11.5-14.5) Platelet Count 140 x10^3/uL (140-400) Neutrophils (%) (Auto) 78 % (31-73) Lymphocytes (%) (Auto) 13 % (24-48) Monocytes (%) (Auto) 9 % (0-9) Eosinophils (%) (Auto) 0 % (0-3) Basophils (%) (Auto) 0 % (0-3) Neutrophils # (Auto) 9.3 x10^3uL (1.8-7.7) Lymphocytes # (Auto) 1.5 x10^3/uL (1.0-4.8) Monocytes # (Auto) 1.0 x10^3/uL (0.0-1.1) Eosinophils # (Auto) 0.0 x10^3/uL (0.0-0.7) Basophils # (Auto) 0.1 x10^3/uL (0.0-0.2) Sodium Level 140 mmol/L (136-145) Potassium Level 3.7 mmol/L (3.5-5.1) Chloride Level 109 mmol/L (98-107) Carbon Dioxide Level 21 mmol/L (21-32) Anion Gap 10 (6-14) Blood Urea Nitrogen 32 mg/dL (8-26) Creatinine 1.3 mg/dL (0.7-1.3) Estimated GFR (Cockcroft-Gault) 60.0 Glucose Level 128 mg/dL (70-99) Calcium Level 8.4 mg/dL (8.5-10.1) Phosphorus Level 2.2 mg/dL (2.6-4.7) Magnesium Level 2.5 mg/dL (1.8-2.4) Test 11/08/16 06:13 11/08/16 08:00 11/08/16 09:03 Glucose (Fingerstick) 123 mg/dL (70-99) 301 mg/dL (70-99) O2 Saturation 98 % (92-99) Arterial Blood pH 7.37 (7.35-7.45) Arterial Blood pCO2 at Patient Temp 30 mmHg (35-46) Arterial Blood pO2 at Patient Temp 134 mmHg (75-108) Arterial Blood HCO3 17 mmol/L (21-28) Arterial Blood Base Excess -7 mmol/L (-3-3) FiO2 40 Objective Assessment LLL pneumonia. Repeat cxr improved Leukocytosis, improved Allergy amoxicillin & Augmentin. unknown reaction DKA, improved Acute encephalopathy Acute respiratory failure s/p intubation RAVEN, improved Alcoholism Polysubstance abuse. Plan Plan of Care Cont Levaquin f/u cultures Monitor labs Supportive care Reviewed Previous records critically ill Thank you [id number] Attending Co-Sign Attending Co-Sign The patient was seen and interviewed as well as examined at the bedside. The chart was reviewed. The case was discussed. Agree with the plan of care. ROMANA MCNEILL APRN November 08, 2016 11:21 NIRALI PETIT MD November 08, 2016 13:57
--- NOTE | 2016-11-08 11:40 | PDOC2 ---
CONSULT Date of Consult Date of Consult DATE: 11/08/16 TIME: 11:39 Reason for Consult Reason for Consult: Coffee ground emesis Past Medical History Cardiovascular: No pertinent hx Pulmonary: No pertinent hx CENTRAL NERVOUS SYSTEM: Other GI: Other Hepatobiliary: No pertinent hx Psych: Anxiety Endocrine: Diabetes Past Surgical History Past Surgical History: No pertinent history Family History Family History: Alzheimer's Disease, Heart Disease Social History No ALCOHOL: other Drugs: None Current Problem List Problem List Problems Medical Problems: (1) Acute metabolic encephalopathy Status: Acute (2) Acute renal failure Status: Acute (3) Community acquired bacterial pneumonia Status: Acute (4) Diabetic ketoacidosis Status: Acute Current Medications Current Medications Current Medications Midazolam HCl 100 ml @ As Directed STK-MED ONCE IV ; Start 11/07/16 at 17:24; Stop 11/07/16 at 17:25; Status DC Insulin Human Regular 0 ml @ As Directed STK-MED ONCE IV ; Start 11/07/16 at 17: 34; Stop 11/07/16 at 17:35; Status DC Sodium Chloride 1,000 ml @ 1,000 mls/hr Q1H IV Last administered on 11/07/16 18:07; Start 11/07/16 at 18:00; Stop 11/07/16 at 19:59; Status DC Sodium Bicarbonate 150 meq/Sterile Water 1,150 ml @ 250 mls/hr Q4H36M IV Last administered on 11/07/16 18:31; Start 11/07/16 at 18:30; Stop 11/07/16 at 19:44; Status DC Etomidate (Amidate) 20 mg STK-MED ONCE IV ; Start 11/07/16 at 18:22; Stop at 18:23; Status DC Midazolam HCl (Versed) 5 mg STK-MED ONCE .ROUTE ; Start 11/07/16 at 18:23; Stop 11/07/16 at 18:24; Status DC Rocuronium [place] (Zemuron) 50 mg STK-MED ONCE .ROUTE ; Start 11/07/16 at 18:23 ; Stop 11/07/16 at 18:24; Status DC Midazolam HCl 100 ml @ 0 mls/hr 1X ONCE IV Last administered on 11/07/16 18:42 ; Start 11/07/16 at 18:45; Stop 11/07/16 at 18:46; Status DC Levofloxacin/ Dextrose (Levaquin Per Pharmacy) 1 each PRN DAILY PRN MC SEE COMMENTS; Start 11/07/16 at 18:45 Levofloxacin/ Dextrose 150 ml @ 100 mls/hr Q24H IV Last administered on 21:16; Start 11/07/16 at 17:00 Ondansetron HCl (Zofran) 4 mg PRN Q8HRS PRN IV NAUSEA/VOMITING; Start 11/07/16 at 18:45; Stop 11/08/16 at 18:44 Insulin Human Regular 150 unit/ Sodium Chloride 151.5 ml @ 0 mls/hr CONT PRN PRN IV PER PROTOCOL Last administered on 11/07/16 19:59; Start 11/07/16 at 19:30 ; Stop 11/08/16 at 06:06; Status DC Sodium Bicarbonate 50 meq/Sodium Chloride 1,050 ml @ 500 mls/hr Q2H6M PRN IV Infuse for pH < 6.95; Start 11/07/16 at 22:30; Stop 11/07/16 at 22:30; Status DC Sodium Bicarbonate 50 meq/Sodium Chloride 1,050 ml @ 500 mls/hr PRN Q2HR PRN IV Infuse for pH < 6.95; Start 11/07/16 at 22:30; Stop 11/07/16 at 22:30; Status DC Sodium Bicarbonate 50 meq/Sodium Chloride 1,050 ml @ 500 mls/hr PRN Q2HR PRN IV Infuse for pH < 6.95 Last administered on 11/07/16 23:25; Start 11/07/16 at 19 :45; Stop 11/08/16 at 01:59; Status DC Sodium Chloride 1,000 ml @ 1,000 mls/hr 1X ONCE IV Last administered on 20:00; Start 11/07/16 at 20:30; Stop 11/07/16 at 21:29; Status DC Pantoprazole Sodium (Protonix Vial) 40 mg BID IVP Last administered on 09:21; Start 11/07/16 at 21:00 Potassium Chloride 50 ml @ 50 mls/hr Q1H IV Last administered on 11/08/16 02:08 ; Start 11/08/16 at 00:00; Stop 11/08/16 at 02:59; Status DC Magnesium Sulfate/ Dextrose 100 ml @ 25 mls/hr 1X ONCE IV Last administered on 11/08/16 00:12; Start 11/07/16 at 23:30; Stop 11/08/16 at 03:29; Status DC Haloperidol Lactate (Haldol) 2 mg PRN Q2HRS PRN IVP AGITATION; Start 11/07/16 at 23:15 Sodium Chloride 1,000 ml @ 250 mls/hr Q4H IV Last administered on 11/08/16 00: 08; Start 11/07/16 at 23:30; Stop 11/08/16 at 02:53; Status DC Sodium Phosphate 20 mmol/Dextrose 256.6667 ml @ 62.5 mls/hr 1X PRN PRN IV SEE COMMENTS Last administered on 11/08/16 00:17; Start 11/07/16 at 23:30; Stop at 06:10; Status DC Midazolam HCl 100 ml @ 0 mls/hr CONT PRN IV SEE I/O RECORD Last administered on 11/08/16 05:09; Start 11/07/16 at 23:30 Dextrose/Sodium Chloride 1,000 ml @ 250 mls/hr Q4H IV Last administered on 11/08 07:07; Start 11/08/16 at 03:00; Stop 11/08/16 at 11:28; Status DC Sodium Phosphate 20 mmol/Dextrose 256.6667 ml @ 64.167 m... 1X ONCE IV Last administered on 11/08/16 05:46; Start 11/08/16 at 06:00; Stop 11/08/16 at 09:59; Status DC Potassium Chloride 100 ml @ 100 mls/hr PRN Q1HR PRN IV SEE COMMENTS; Start 11/08/16 at 06:00; Stop 11/08/16 at 06:07; Status DC Insulin Detemir (Levemir) 48 units QHS SQ ; Start 11/08/16 at 21:00 Insulin Aspart (Novolog) 0-7 UNITS Q6HRS SQ ; Start 11/08/16 at 06:00 Dextrose (Dextrose 50%-Water Syringe) 12.5 gm PRN Q15MIN PRN IV SEE COMMENTS; Start 11/08/16 at 06:00 Famotidine (Pepcid) 20 mg BID IVP ; Start 11/08/16 at 09:00; Stop 11/08/16 at 09: 00; Status DC Enoxaparin Sodium (Lovenox 40mg Syringe) 40 mg Q24H SQ Last administered on 11/08 09:21; Start 11/08/16 at 09:00 Insulin Aspart (Novolog) 17 units TIDAC SQ ; Start 11/08/16 at 11:30 Insulin Aspart (Novolog) 20 units 1X ONCE SQ Last administered on 11/08/16 09: 27; Start 11/08/16 at 09:15; Stop 11/08/16 at 09:16; Status DC Insulin Detemir (Levemir) 48 units QHS SQ ; Start 11/08/16 at 21:00; Status UNV Dextrose/Sodium Chloride 1,000 ml @ 250 mls/hr Q4H IV ; Start 11/08/16 at 11:15 Active Scripts Active Klor-Con M20 (Potassium Chloride) 20 Meq Tab.er.prt 20 Meq PO BIDWMEALS Reported Apidra Solostar (Insulin Glulisine) 100 Unit/1 Ml Insuln.pen 17 Unit SQ TIDACHC Lantus Solostar (Insulin Glargine,Hum.rec.anlog) 100 Unit/1 Ml Insuln.pen 48 Unit SQ QHS Spironolactone 25 Mg Tablet 25 Mg PO DAILY Gabapentin 400 Mg Capsule 400 Mg PO DAILY Ramipril 2.5 Mg Capsule 2.5 Mg PO DAILY Levothyroxine Sodium 75 Mcg Tablet 75 Mcg PO DAILYAC Fenofibrate 160 Mg Tablet 160 Mg PO DAILY Lisinopril 20 Mg Tablet 20 Mg PO DAILY Furosemide 20 Mg Tablet 20 Mg PO QODAY Hydrochlorothiazide Tablet (Hydrochlorothiazide) 25 Mg Tablet 25 Mg PO DAILY Atorvastatin Calcium 10 Mg Tablet 10 Mg PO DAILY Allergies Allergies: Coded Allergies: amoxicillin (Verified Allergy, Intermediate, 08/30/15) clavulanic acid (Verified Allergy, Intermediate, 08/30/15) Vitals VITALS Vital Signs Date Time Temp Pulse Resp B/P (MAP) Pulse Ox O2 Delivery O2 Flow Rate FiO2 11/08/16 11:10 100 Ventilator 11/08/16 09:10 109 24 150/100 (117) 11/08/16 08:06 99.5 99.5 11/07/16 16:58 6.0 Labs Labs Laboratory Tests Test 11/07/16 17:00 11/07/16 17:22 11/07/16 17:50 11/07/16 18:29 Lactic Acid Level 1.6 mmol/L (0.4-2.0) O2 Saturation 98 % (92-99) Arterial Blood pH 6.87 (7.35-7.45) Arterial Blood pCO2 at Patient Temp 25 mmHg (35-46) Arterial Blood pO2 at Patient Temp 134 mmHg (75-108) Arterial Blood HCO3 5 mmol/L (21-28) Arterial Blood Base Excess -28 mmol/L (-3-3) FiO2 40 Urine Collection Type Unknown Urine Color Yellow Urine Clarity Cloudy Urine pH 5.0 Urine Specific [place] 1.025 Urine Protein 30 mg/dL (NEG-TRACE) Urine Glucose (UA) >=1000 mg/dL (NEG) Urine Ketones (Stick) 40 mg/dL (NEG) Urine Blood Moderate (NEG) Urine Nitrite Negative (NEG) Urine Bilirubin Moderate (NEG) Urine Urobilinogen Dipstick 1.0 mg/dL (0.2 mg/dL) Urine Leukocyte Esterase Negative (NEG) Urine RBC Rare /HPF (0-2) Urine WBC 0 /HPF (0-4) Urine Squamous Epithelial Cells Occ /LPF Urine Bacteria 0 /HPF (0-FEW) Urine Opiates Screen Neg (NEG) Urine Methadone Screen Neg (NEG) Urine Barbiturates Neg (NEG) Urine Phencyclidine Screen Neg (NEG) Urine Amphetamine/Methamphetamine Pos (NEG) Urine Benzodiazepines Screen Neg (NEG) Urine Cocaine Screen Neg (NEG) Urine Cannabinoids Screen Neg (NEG) Urine Ethyl Alcohol Neg (NEG) Sodium Level 130 mmol/L (136-145) Potassium Level 6.0 mmol/L (3.5-5.1) Chloride Level 96 mmol/L (98-107) Carbon Dioxide Level 7 mmol/L (21-32) Anion Gap 27 (6-14) Blood Urea Nitrogen 42 mg/dL (8-26) Creatinine 2.1 mg/dL (0.7-1.3) Estimated GFR (Cockcroft-Gault) 34.5 BUN/Creatinine Ratio 20 (6-20) Glucose Level 766 mg/dL (70-99) Calcium Level 9.4 mg/dL (8.5-10.1) Total Bilirubin 0.8 mg/dL (0.2-1.0) Aspartate Amino Transf (AST/SGOT) 83 U/L (15-37) Alanine Aminotransferase (ALT/SGPT) 71 U/L (16-63) Alkaline Phosphatase 134 U/L (46-116) Ammonia 26 mcmol/L (11-34) Total Protein 7.6 g/dL (6.4-8.2) Albumin 3.4 g/dL (3.4-5.0) Albumin/Globulin Ratio 0.8 (1.0-1.7) Test 11/07/16 19:50 11/07/16 20:55 11/07/16 22:03 11/07/16 22:28 White Blood Count 25.1 x10^3/uL (4.0-11.0) Red Blood Count 4.25 x10^6/uL (4.30-5.70) Hemoglobin 13.6 g/dL (13.0-17.5) Hematocrit 41.7 % (39.0-53.0) Mean Corpuscular Volume 98 fL (79-100) Mean Corpuscular Hemoglobin 32 pg (25-35) Mean Corpuscular Hemoglobin Concent 33 g/dL (31-37) Red Cell Distribution Width 14.4 % (11.5-14.5) Platelet Count 220 x10^3/uL (140-400) Neutrophils (%) (Auto) 90 % (31-73) Lymphocytes (%) (Auto) 3 % (24-48) Monocytes (%) (Auto) 6 % (0-9) Eosinophils (%) (Auto) 0 % (0-3) Basophils (%) (Auto) 0 % (0-3) Neutrophils # (Auto) 22.6 x10^3uL (1.8-7.7) Lymphocytes # (Auto) 0.9 x10^3/uL (1.0-4.8) Monocytes # (Auto) 1.5 x10^3/uL (0.0-1.1) Eosinophils # (Auto) 0.0 x10^3/uL (0.0-0.7) Basophils # (Auto) 0.1 x10^3/uL (0.0-0.2) Segmented Neutrophils % 81 % (35-66) Band Neutrophils % 12 % (0-9) Lymphocytes % 4 % (24-48) Monocytes % 3 % (0-10) Toxic Granulation Mod Platelet Estimate Adequate (ADEQUATE) Glucose Level 616 mg/dL (70-99) O2 Saturation 98 % (92-99) Arterial Blood pH 7.28 (7.35-7.45) Arterial Blood pCO2 at Patient Temp 19 mmHg (35-46) Arterial Blood pO2 at Patient Temp 97 mmHg (75-108) Arterial Blood HCO3 8 mmol/L (21-28) Arterial Blood Base Excess -16 mmol/L (-3-3) FiO2 40 Glucose (Fingerstick) 428 mg/dL (70-99) Test 11/07/16 22:30 11/07/16 23:31 11/08/16 00:37 11/08/16 01:40 Sodium Level 137 mmol/L (136-145) Potassium Level 3.2 mmol/L (3.5-5.1) Chloride Level 102 mmol/L (98-107) Carbon Dioxide Level 10 mmol/L (21-32) Anion Gap 25 (6-14) Blood Urea Nitrogen 39 mg/dL (8-26) Creatinine 1.7 mg/dL (0.7-1.3) Estimated GFR (Cockcroft-Gault) 44.0 Glucose Level 448 mg/dL (70-99) Calcium Level 8.7 mg/dL (8.5-10.1) Phosphorus Level 1.9 mg/dL (2.6-4.7) Magnesium Level 1.3 mg/dL (1.8-2.4) Glucose (Fingerstick) 408 mg/dL (70-99) 355 mg/dL (70-99) 258 mg/dL (70-99) Test 11/08/16 02:47 11/08/16 04:25 11/08/16 04:30 11/08/16 05:08 Glucose (Fingerstick) 185 mg/dL (70-99) 127 mg/dL (70-99) White Blood Count 12.0 x10^3/uL (4.0-11.0) Red Blood Count 3.44 x10^6/uL (4.30-5.70) Hemoglobin 11.2 g/dL (13.0-17.5) Hematocrit 32.2 % (39.0-53.0) Mean Corpuscular Volume 94 fL (79-100) Mean Corpuscular Hemoglobin 32 pg (25-35) Mean Corpuscular Hemoglobin Concent 35 g/dL (31-37) Red Cell Distribution Width 13.9 % (11.5-14.5) Platelet Count 140 x10^3/uL (140-400) Neutrophils (%) (Auto) 78 % (31-73) Lymphocytes (%) (Auto) 13 % (24-48) Monocytes (%) (Auto) 9 % (0-9) Eosinophils (%) (Auto) 0 % (0-3) Basophils (%) (Auto) 0 % (0-3) Neutrophils # (Auto) 9.3 x10^3uL (1.8-7.7) Lymphocytes # (Auto) 1.5 x10^3/uL (1.0-4.8) Monocytes # (Auto) 1.0 x10^3/uL (0.0-1.1) Eosinophils # (Auto) 0.0 x10^3/uL (0.0-0.7) Basophils # (Auto) 0.1 x10^3/uL (0.0-0.2) Sodium Level 140 mmol/L (136-145) Potassium Level 3.7 mmol/L (3.5-5.1) Chloride Level 109 mmol/L (98-107) Carbon Dioxide Level 21 mmol/L (21-32) Anion Gap 10 (6-14) Blood Urea Nitrogen 32 mg/dL (8-26) Creatinine 1.3 mg/dL (0.7-1.3) Estimated GFR (Cockcroft-Gault) 60.0 Glucose Level 128 mg/dL (70-99) Calcium Level 8.4 mg/dL (8.5-10.1) Phosphorus Level 2.2 mg/dL (2.6-4.7) Magnesium Level 2.5 mg/dL (1.8-2.4) Test 11/08/16 06:13 11/08/16 08:00 11/08/16 09:03 Glucose (Fingerstick) 123 mg/dL (70-99) 301 mg/dL (70-99) O2 Saturation 98 % (92-99) Arterial Blood pH 7.37 (7.35-7.45) Arterial Blood pCO2 at Patient Temp 30 mmHg (35-46) Arterial Blood pO2 at Patient Temp 134 mmHg (75-108) Arterial Blood HCO3 17 mmol/L (21-28) Arterial Blood Base Excess -7 mmol/L (-3-3) FiO2 40 Laboratory Tests Test 11/07/16 17:00 11/07/16 17:22 11/07/16 17:50 11/07/16 18:29 Lactic Acid Level 1.6 mmol/L (0.4-2.0) O2 Saturation 98 % (92-99) Arterial Blood pH 6.87 (7.35-7.45) Arterial Blood pCO2 at Patient Temp 25 mmHg (35-46) Arterial Blood pO2 at Patient Temp 134 mmHg (75-108) Arterial Blood HCO3 5 mmol/L (21-28) Arterial Blood Base Excess -28 mmol/L (-3-3) FiO2 40 Urine Collection Type Unknown Urine Color Yellow Urine Clarity Cloudy Urine pH 5.0 Urine Specific [place] 1.025 Urine Protein 30 mg/dL (NEG-TRACE) Urine Glucose (UA) >=1000 mg/dL (NEG) Urine Ketones (Stick) 40 mg/dL (NEG) Urine Blood Moderate (NEG) Urine Nitrite Negative (NEG) Urine Bilirubin Moderate (NEG) Urine Urobilinogen Dipstick 1.0 mg/dL (0.2 mg/dL) Urine Leukocyte Esterase Negative (NEG) Urine RBC Rare /HPF (0-2) Urine WBC 0 /HPF (0-4) Urine Squamous Epithelial Cells Occ /LPF Urine Bacteria 0 /HPF (0-FEW) Urine Opiates Screen Neg (NEG) Urine Methadone Screen Neg (NEG) Urine Barbiturates Neg (NEG) Urine Phencyclidine Screen Neg (NEG) Urine Amphetamine/Methamphetamine Pos (NEG) Urine Benzodiazepines Screen Neg (NEG) Urine Cocaine Screen Neg (NEG) Urine Cannabinoids Screen Neg (NEG) Urine Ethyl Alcohol Neg (NEG) Sodium Level 130 mmol/L (136-145) Potassium Level 6.0 mmol/L (3.5-5.1) Chloride Level 96 mmol/L (98-107) Carbon Dioxide Level 7 mmol/L (21-32) Anion Gap 27 (6-14) Blood Urea Nitrogen 42 mg/dL (8-26) Creatinine 2.1 mg/dL (0.7-1.3) Estimated GFR (Cockcroft-Gault) 34.5 BUN/Creatinine Ratio 20 (6-20) Glucose Level 766 mg/dL (70-99) Calcium Level 9.4 mg/dL (8.5-10.1) Total Bilirubin 0.8 mg/dL (0.2-1.0) Aspartate Amino Transf (AST/SGOT) 83 U/L (15-37) Alanine Aminotransferase (ALT/SGPT) 71 U/L (16-63) Alkaline Phosphatase 134 U/L (46-116) Ammonia 26 mcmol/L (11-34) Total Protein 7.6 g/dL (6.4-8.2) Albumin 3.4 g/dL (3.4-5.0) Albumin/Globulin Ratio 0.8 (1.0-1.7) Test 11/07/16 19:50 11/07/16 20:55 11/07/16 22:03 11/07/16 22:28 White Blood Count 25.1 x10^3/uL (4.0-11.0) Red Blood Count 4.25 x10^6/uL (4.30-5.70) Hemoglobin 13.6 g/dL (13.0-17.5) Hematocrit 41.7 % (39.0-53.0) Mean Corpuscular Volume 98 fL (79-100) Mean Corpuscular Hemoglobin 32 pg (25-35) Mean Corpuscular Hemoglobin Concent 33 g/dL (31-37) Red Cell Distribution Width 14.4 % (11.5-14.5) Platelet Count 220 x10^3/uL (140-400) Neutrophils (%) (Auto) 90 % (31-73) Lymphocytes (%) (Auto) 3 % (24-48) Monocytes (%) (Auto) 6 % (0-9) Eosinophils (%) (Auto) 0 % (0-3) Basophils (%) (Auto) 0 % (0-3) Neutrophils # (Auto) 22.6 x10^3uL (1.8-7.7) Lymphocytes # (Auto) 0.9 x10^3/uL (1.0-4.8) Monocytes # (Auto) 1.5 x10^3/uL (0.0-1.1) Eosinophils # (Auto) 0.0 x10^3/uL (0.0-0.7) Basophils # (Auto) 0.1 x10^3/uL (0.0-0.2) Segmented Neutrophils % 81 % (35-66) Band Neutrophils % 12 % (0-9) Lymphocytes % 4 % (24-48) Monocytes % 3 % (0-10) Toxic Granulation Mod Platelet Estimate Adequate (ADEQUATE) Glucose Level 616 mg/dL (70-99) O2 Saturation 98 % (92-99) Arterial Blood pH 7.28 (7.35-7.45) Arterial Blood pCO2 at Patient Temp 19 mmHg (35-46) Arterial Blood pO2 at Patient Temp 97 mmHg (75-108) Arterial Blood HCO3 8 mmol/L (21-28) Arterial Blood Base Excess -16 mmol/L (-3-3) FiO2 40 Glucose (Fingerstick) 428 mg/dL (70-99) Test 11/07/16 22:30 11/07/16 23:31 11/08/16 00:37 11/08/16 01:40 Sodium Level 137 mmol/L (136-145) Potassium Level 3.2 mmol/L (3.5-5.1) Chloride Level 102 mmol/L (98-107) Carbon Dioxide Level 10 mmol/L (21-32) Anion Gap 25 (6-14) Blood Urea Nitrogen 39 mg/dL (8-26) Creatinine 1.7 mg/dL (0.7-1.3) Estimated GFR (Cockcroft-Gault) 44.0 Glucose Level 448 mg/dL (70-99) Calcium Level 8.7 mg/dL (8.5-10.1) Phosphorus Level 1.9 mg/dL (2.6-4.7) Magnesium Level 1.3 mg/dL (1.8-2.4) Glucose (Fingerstick) 408 mg/dL (70-99) 355 mg/dL (70-99) 258 mg/dL (70-99) Test 11/08/16 02:47 11/08/16 04:25 11/08/16 04:30 11/08/16 05:08 Glucose (Fingerstick) 185 mg/dL (70-99) 127 mg/dL (70-99) White Blood Count 12.0 x10^3/uL (4.0-11.0) Red Blood Count 3.44 x10^6/uL (4.30-5.70) Hemoglobin 11.2 g/dL (13.0-17.5) Hematocrit 32.2 % (39.0-53.0) Mean Corpuscular Volume 94 fL (79-100) Mean Corpuscular Hemoglobin 32 pg (25-35) Mean Corpuscular Hemoglobin Concent 35 g/dL (31-37) Red Cell Distribution Width 13.9 % (11.5-14.5) Platelet Count 140 x10^3/uL (140-400) Neutrophils (%) (Auto) 78 % (31-73) Lymphocytes (%) (Auto) 13 % (24-48) Monocytes (%) (Auto) 9 % (0-9) Eosinophils (%) (Auto) 0 % (0-3) Basophils (%) (Auto) 0 % (0-3) Neutrophils # (Auto) 9.3 x10^3uL (1.8-7.7) Lymphocytes # (Auto) 1.5 x10^3/uL (1.0-4.8) Monocytes # (Auto) 1.0 x10^3/uL (0.0-1.1) Eosinophils # (Auto) 0.0 x10^3/uL (0.0-0.7) Basophils # (Auto) 0.1 x10^3/uL (0.0-0.2) Sodium Level 140 mmol/L (136-145) Potassium Level 3.7 mmol/L (3.5-5.1) Chloride Level 109 mmol/L (98-107) Carbon Dioxide Level 21 mmol/L (21-32) Anion Gap 10 (6-14) Blood Urea Nitrogen 32 mg/dL (8-26) Creatinine 1.3 mg/dL (0.7-1.3) Estimated GFR (Cockcroft-Gault) 60.0 Glucose Level 128 mg/dL (70-99) Calcium Level 8.4 mg/dL (8.5-10.1) Phosphorus Level 2.2 mg/dL (2.6-4.7) Magnesium Level 2.5 mg/dL (1.8-2.4) Test 11/08/16 06:13 11/08/16 08:00 11/08/16 09:03 Glucose (Fingerstick) 123 mg/dL (70-99) 301 mg/dL (70-99) O2 Saturation 98 % (92-99) Arterial Blood pH 7.37 (7.35-7.45) Arterial Blood pCO2 at Patient Temp 30 mmHg (35-46) Arterial Blood pO2 at Patient Temp 134 mmHg (75-108) Arterial Blood HCO3 17 mmol/L (21-28) Arterial Blood Base Excess -7 mmol/L (-3-3) FiO2 40 Assessment/Plan Assessment/Plan Coffee ground emesis- with DKA, likely stress gastritis and/or PUD Plan PPI therapy serial cbcs consider upper endoscopy pending clinical course Full note dictated HELEN CEDENO MD November 08, 2016 11:40
--- NOTE | 2016-11-08 12:52 | EKG ---
[facility] [address] [place] [address] Test Date: 2016-11-07 Test Time: 17:52:11 Pat Name: HELEN GONZALEZ Department: Room: 109 1 Gender: M [employer] Technical [employer]: : 1970 Requested By: YOGI CANDELARIA Order Number: [id number] Reading MD: Jaleesa Ackerman Measurements Intervals [place] Rate: 123 P: 29 TN: 154 QRS: 54 QRSD: 94 T: -12 QT: 316 QTc: 458 Interpretive Statements SINUS TACHYCARDIA OTHERWISE NORMAL EKG Electronically Signed On 11-08-2016 18:19:03 CDT by Jaleesa Ackerman
[2016-11-08] MEDS ORDERED: IV DEXTROSE 5% 250 ML IV ONE (16:45)
[2016-11-08] MEDS: INSULIN DETEMIR 300 UNITS/3 ML INSULN.PEN. SQ SCH (20:56)
[2016-11-08] MEDS ORDERED: INSULIN DETEMIR 300 UNITS/3 ML INSULN.PEN. SQ SCH (21:00)
[2016-11-09] VITALS (24 sets, daily range): BP systolic 87–164; BP diastolic 74–102
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
[2016-11-09] MEDS: IV DEXTROSE 5% - 0.9 % NACL 1,000 ML IV SCH ×2 (04:26→07:44)
--- NOTE | 2016-11-09 04:42 | ACF ---
Admission Forms Criteria INTENSIVE CARE UNIT ADMISSION Intensive Care Admission Guidelines ( Place 'X' for any and all applicable criteria): Admission to ICU may be indicated when need is demonstrated by ANY ONE of the following (1)(2)(3)(4)(5)(6)(7)(8)(9) : [ ]I. Vital sign abnormalities, including ANY ONE of the following: [ ]a) Systolic arterial pressure less than 90 mm Hg, or 20 mm Hg below the patient's usual pressure [ ]b) Diastolic arterial pressure greater than 120 mm Hg [ ]c) Mean arterial pressure less than 70 mm Hg [A] [ ]d) Pulse less than 40 or greater than 140 beats per minute (in adult) [ ]e) Respiratory rate greater than 35 or less than 8 breaths per minute [ ]II. Laboratory findings (new), including ANY ONE of the following (10): [ ]a) Saturation of arterial oxygen less than 88% or partial pressure of oxygen less than 60 mm Hg (8.0 kPa) despite oxygen supplementation [ ]b) Rising partial pressure of carbon dioxide with respiratory acidosis [ ]c) pH less than 7.2 or greater than 7.65 [ ]d) Serum glucose greater than 800 mg/dL (44.4 mmol/L) [ ]e) Serum sodium less than 110 mEq/L (mmol/L) or greater than 160 mEq/L (mmol/L) [ ]f) Serum potassium less than 2 mEq/L (mmol/L) or greater than 7 mEq /L (mmol/L) [ ]g) Serum calcium greater than 15 mg/dL (3.75 mmol/L) [ ]h) Serum phosphorus less than 1 mg/dL (0.32 mmol/L) [ ]i) Toxic drug level or poisoning causing or likely to cause neurologic or Hemodynamic instability [ ]j) Less severe laboratory abnormalities contributing to ANY ONE of the following: [ ]i) Seizure [ ]ii) Altered mental status [ ]iii) Muscle weakness [ ]iv) Arrhythmias [ ]v) Hemodynamic instability [ ]vi) Other significant clinical manifestations [ ]III. Electrocardiogram (or cardiac monitoring) findings, including ANY ONE of the following: [ ]a) Inherently unstable or life-threatening arrhythmia (eg, sustained ventricular tachycardia, ventricular fibrillation, asystole) [ ]b) Arrhythmia causing severe hypotension (eg, bradycardia, tachycardia) [ ]c) Complete heart block causing severe hypotension [ ]d) Other findings indicative of a need for intensive care (eg , WI) [ ]IV.Physical findings, including ANY ONE of the following: [ ]a) Threatened airway [ ]b) Sudden altered mental status [ ]c) Repeated or prolonged seizures [ ]d) Coma [ ]e) New-onset anuria (urine output <0.1 mL/kg/hr over 4 h) [ ]f) Cyanosis (new) [ ]g) Cardiac tamponade [ ]h) Status post respiratory or cardiac arrest [ ]i) Severe julien (eg, partial thickness julien over more than 10% of body surface, third-degree julien) [ ]j) Findings consistent with abdominal emergency (eg, peritoneal signs) [ ]V.Imaging findings, such as dissecting aneurysm or ruptured viscus [X].Specific intervention or monitoring needed, as indicated by ANY ONE of the following: [X]a) New need for assisted ventilation, invasive or noninvasive(11) [ ]b) New need for intubation (eg, to protect airway) [ ]c) New tracheostomy (less than 48 hours old) [ ]d) Hourly vital signs or neurologic checks [ ]e) Pulmonary artery line monitoring needed [ ]f) Continuous arterial line monitoring needed [ ]g) Continuous IV vasoactive drugs [ ]h) Continuous IV antiarrhythmics [ ]i) Large volume IV fluid resuscitation (eg, greater than 6 L per day ) [ ]j) Large or rapid transfusion needs (eg, more than 6 units within 24 hours) [ ]k) High-risk IV treatment, such as bolus IV medicatns or mannitol infusion [ ]l) Acute cardiac pacing [ ]m) Intra-aortic balloon pump [ ]n) Ventricular assist device [ ]o) Cardioversion [ ]p) Pericardiocentesis [ ]q) Hemodialysis in unstable patient [ ]r) Continuous renal replacement therapy (eg, continuous veno-venous hemofiltration) [ ]s) Peritoneal dialysis initiation [ ]t) Emergency bronchoscopic therapy (eg, for hemoptysis) [ ]u) Emergency endoscopic therapy for bleeding [ ]v) Balloon tamponade for variceal bleeding [ ]w) Intracranial pressure monitoring or tissue oxygen monitoring [ ]x) Ventriculostomy monitoring [ ]y) Treatment of ongoing seizures [ ]z) Induced hypothermia or coma [ ]aa) Ongoing frequent testing and treatment for acute conditions, including ANY ONE of the following: [ ]i) Correction of severe metabolic acidosis/ alkalosis [ ]ii). Severe fluid overload [ ]iii) Cerebral edema [ ]iv) Monitoring or suctioning for respiratory insufficiency or acidosis [ ]v) Monitoring for active bleeding [ ]bb) Rapid desensitization for high-risk hypersensitivity reaction to required medication (eg, penicillin)(12) [ ]cc) Other need for treatment or monitoring not available outside the ICU [ ]VII.Cardiology diagnoses or procedures, including ANY ONE of the following (13)(14)(15)(16)(17): [ ]a) Chest pain with ANY ONE of the following: [ ]i) Hemodynamic instability [ ]ii) Suspicion of diagnoses needing ICU care (eg, aortic dissection) [ ]iii) New unstable or symptomatic arrhythmia or ECG finding (eg, ventricular tachycardia, ventricular fibrillation, advanced heart block) [ ]iv) Syncope or near-syncope [ ]v) SBP less than 100 mm Hg [ ]vi) Pulmonary edema thought to be due to ischemia [ ]vii) New or worsening mitral regurgitation murmur, S3 , or rales [ ]b) Acute WI with complications as indicated by ANY ONE of the following: [ ]i) Persistent chest pain [ ]ii) Hemodynamic instability [ ]iii) New unstable or symptomatic arrhythmia or ECG finding (eg, ventricular tachycardia, ventricular fibrillation, advanced heart block) [ ]iv) Syncope or near-syncope [ ]v) Pulmonary edema thought to be due to ischemia [ ]vi) New or worsening mitral regurgitation murmur, S3 , or rales [ ]vii) New-onset bundle branch block [ ]viii) Hemorrhagic complication (eg, intracranial or access site bleed following thrombolysis) [ ]c) Cardiac arrhythmia or conduction defect with Hemodynamic instability [ ]d) Complication of cardiac ablation, including ANY ONE of the following(18): [ ]i) Pericardial tamponade [ ]ii) Hemodynamic instability [ ]iii) Thromboembolic stroke [ ]iv) Aortic valve injury [ ]v) Vascular injuries [ ]vi) Esophageal perforation [ ]vii) Severe arrhythmia [ ]viii) Air embolism [ ]ix) Other severe complication [ ]e) Cardiogenic shock [ ]f) Hypertensive emergency, with need for ANY ONE of the following(19): [ ]i) IV antihypertensive therapy [ ]ii) Invasive hemodynamic monitoring (eg, arterial line) [ ]g) Pericardial tamponade [ ]h) Severe heart failure, with ANY ONE of the following(15): [ ]i) Respiratory failure [ ]ii) Cardiogenic shock [ ]iii) Severe arrhythmias [ ]iv) Evidence of cardiac ischemia [ ]i Myocarditis, with ANY ONE of the following [ ]i) Hemodynamic instability [ ]ii) Respiratory failure [ ]iii) Severe arrhythmias [ ]iv) Need for cardiac assist device (eg, left ventricular assist device or extracorporeal membrane oxygenator) [ ]j) Status post cardiac arrest(20) [ ]VIII. Cardiovascular Surgery diagnoses or procedures, including ANY ONE of the following.(21)(22): [ ]a) Acute aortic dissection [ ]b) Aortic surgery for ANY ONE of the following: [ ]i) Thoracic aneurysm [ ]ii) Abdominal aneurysm with ANY ONE of the following(23): [ ]1) Emergency repair [ ]2) Severe cardiopulmonary disease [ ]3) Dialysis-dependent renal failure [ ]4) Need for IV blood pressure control [ ]5) Need for ongoing ventilatory support [ ]6) Perioperative complications, including ANY ONE of the following: [ ]A. Sustained Hemodynamic instability [ ]B. Cardiac ischemia or arrhythmia [ ]C. Hypothermia (less than 35 degrees C (95 degrees F)) [ ]D. Blood transfusion greater than 3 L [ ]iii) Aortic coarctation operative excision or repair [ ]iv) Aortofemoral or aortoiliac bypass with ANY ONE of the following: [ ]1) Continued intubation [ ]2) Hemodynamic instability [ ]3) Need for IV blood pressure control [ ]4) Severe cardiopulmonary disease [ ]c) Cardiac surgery [ ]d) Carotid endarterectomy or stent placement with ANY ONE of the following: [ ]i) Blood pressure <100/60 mm Hg or >160/90 mm Hg despite 4 h of postanesthetic management [ ]ii) New or progressive neurologic defect [ ]iii) Chest pain [ ]iv) Continued intubation [ ]v) Heart failure [ ]vi) Airway compromise by hematoma or vocal cord paralysis [ ]vi) Need for IV blood pressure control [ ]e) Heart transplant [ ]f) Infrainguinal peripheral vascular surgery with ANY ONE of the following: [ ]i) Hemodynamic instability [ ]ii) Acute complications such as persistent chest pain or respiratory distress [ ]iii) Requirement for IV antiarrhythmic or vasoactive agent [ ]iv) Requirement for pulmonary artery catheter [ ]v) Severe hypertension despite 6 hours of recovery room management [ ]g) Complications of any surgery requiring ICU intervention as indicated by ANY ONE of the following(24): [ ]i) Hemodynamic instability [ ]ii) Myocardial infarction with complications (eg, severe arrhythmia, hypotension) [ ]iii) Excessive bleeding or severe coagulopathy [ ]iv) Respiratory failure [ ]v) Renal failure [ ]vi) Airway instability or obstruction [ ]vii) Neurologic deterioration [ ]viii) Infection with likelihood of sepsis syndrome or significant fluid shifts [ ]IX.Endocrinology diagnoses or procedures, including ANY ONE of the following(25)(26): [ ]a) Adrenal crisis with Hemodynamic instability(27) [ ]b) Pheochromocytoma with ANY ONE of the following(28): [ ]i) Hypertensive crisis [ ]ii) Postoperative Hemodynamic instability [ ]iii) Need for IV vasoactive therapy [ ]iv) Need for invasive arterial or central venous pressure monitoring [ ]v) Organ ischemia [ ]c) Diabetic hyperosmolar state with obtundation or coma [ ]d) Diabetic ketoacidosis with ANY ONE of the following: [ ]i) Serum pH less than 7.10 or bicarbonate level less than 10 mEq/L (mmol/L) [ ]ii) Rapidly changing electrolytes [ ]iii) Hypotension [ ]iv) Requirement for large-volume fluid resuscitation [ ]v) Respiratory insufficiency [ ]vi) Life-threatening cardiac dysrhythmias [ ]vii) Obtundation [ ]viii) Severe precipitating condition such as sepsis, stroke, or acute WI [ ]e) Severe hypoglycemia requiring continuous glucose infusion with frequent adjustment or glucagon infusion [ ]f) Hyperthyroidism associated with thyroid storm (also known as thyrotoxic crisis)(29) [ ]g) Myxedema with life-threatening neurologic, cardiovascular, electrolyte, or renal dysfunction(29) [ ]h) Diabetes insipidus that cannot be controlled with routine medication (30) [ ]X. Gastroenterology diagnoses or procedures, including ANY ONE of the following: [ ]a) Esophageal perforation(31) [ ]b) Severe caustic esophageal injury(31) [ ]c) Liver disease complications with ANY ONE of the following(32): [ ]i) Severe hepatic encephalopathy (eg, stage 3 (somnolent) or higher) [ ]ii) Type 1 hepatorenal syndrome [ ]iii) Other cirrhosis-associated causes of acute renal failure ( eg, severe hypovolemia, acute tubular necrosis, abdominal compartment syndrome) [ ]iv) Hemodynamic instability [ ]v) Respiratory insufficiency due to severe ascites [ ]vi) Sepsis due to spontaneous bacterial peritonitis [ ]d) Fulminant hepatic failure when aggressive intervention or transplant is anticipated (32) [ ]e) Gastrointestinal hemorrhage (upper or lower) with ANY ONE of the following(33)(34): [ ]i) Active ongoing bleeding [ ]ii) Transfusion requirement greater than 2 units of packed red cells [ ]iii) Bleeding ulcer or nonbleeding visible vessel seen on endoscopy [ ]iv) Bleeding ulcer, visible blood vessel, bleeding (or recently bleeding) esophageal varices seen on endoscopy [ ]v) Hypotension [ ]vi) Syncope [ ]vii) Coagulopathy [ ]viii) Hepatic cirrhosis [ ]ix) Abnormal mental status [ ]x) Unstable comorbid condition or end organ dysfunction [ ]xi) Ischemia due to poor perfusion [ ]xii) Need for hemodynamic monitoring (eg, for patients with heart failure or valvular disease) [ ]f) Severe pancreatitis indicated by ANY ONE of the following (35)(36): [ ]i) Requirement for aggressive fluid resuscitation [ ]ii) Life-threatening electrolyte abnormality [ ]iii) SBP less than 90 mm Hg [ ]iv) Persistent tachycardia greater than 120 beats per minute [ ]v) Patients at high risk of rapid deterioration, including ANY ONE of the following: [ ]1) Calculated [place] II score greater than 8 [ ]2) Age older than 55 years [ ]3) BMI greater than 30 [ ]4) Greater than 30% pancreatic necrosis on CT scan [ ]5) Admission hematocrit greater than 47% (0.47) [ ]vi) Organ failure as indicated by ANY ONE of the following: [ ]1) Serum creatinine greater than 1.9 mg/dL (168 micromoles/L) [ ]2) Requirement for mechanical ventilation [ ]3) Urine output less than 50 mL/hour [ ]4) Arterial partial pressure of oxygen less than 60 mm Hg (8.0 kPa) despite supplemental oxygen [ ]5) PiO2/FiO2 ratio less than 300 [ ]vii) Expanding pseudocyst [ ]viii) Infected pancreas [ ]ix) Pleural effusion [ ]x) Encephalopathy [ ]xi) Severe comorbidities [ ]XI. General Surgery diagnoses or procedures, including ANY ONE of the following (9)(24)(37): [ ]a) Acute abdominal catastrophe (eg, ischemic bowel, perforated viscus, abdominal compartment syndrome) [ ]b) Complications of any surgery requiring ICU intervention as indicated by ANY ONE of the following: [ ]i) Hemodynamic instability [ ]ii) WI with complications (eg, severe arrhythmia, hypotension) [ ]iii) Excessive bleeding or severe coagulopathy [ ]iv) Respiratory failure [ ]v) Renal failure [ ]vi) Airway instability or obstruction [ ]vii) Neurologic deterioration [ ]viii) Infection with likelihood of sepsis syndrome or significant fluid shifts [ ]c) Multiple trauma with complicating features as indicated by ANY ONE of the following(38): [ ]i) Impending acute respiratory failure due to lung contusion, unstable chest wall, aspiration, or hemorrhage [ ]ii) Facial or neck injury threatening airway patency [ ]iii) Cardiac contusion [ ]iv) Pericardial effusion [ ]v) Bronchial tear [ ]vi) Hemodynamic instability [ ]vii) Rhabdomyolisis requiring large volume IV fluid resuscitation [ ]viii)Other significant complicating feature [ ]d) Organ transplant(39)(40) [ ]e) Esophagectomy(31) [ ]f) Whipple procedure [ ]g) Preoperative or postoperative patients requiring ICU intervention, such as hemodynamic optimization, pulmonary artery monitoring, mechanical ventilation, or extensive nursing care [ ]h) Obesity surgery patients with ANY ONE of the following(41): [ ]i) ICU management needs for comorbid conditions, such as sleep apnea or airway management needs [ ]ii) Failed postoperative extubation [ ]iii) Intraoperative complications [ ]XII. Nephrology diagnoses or procedures, including acute, or acute on chronic renal insufficiency with ANY ONE of the following(44)(45): [ ]a) Life-threatening electrolyte or acid-base disorder [ ]b) Acute pulmonary edema [ ]c) Hypotension or significant volume depletion [ ]d) Hypertensive emergency [ ]e) Underlying critical illness contributing to renal failure (eg, septic shock, hepatorenal syndrome) [ ]f) Need for continuous renal replacement therapy [ ]XIII. Neurology diagnoses or procedures, including ANY ONE of the following (46)(47) [B] : [ ]a) Intracranial hypertension requiring ANY ONE of the following(49 ): [ ]i) Induced barbiturate coma [ ]ii) Pharmacologic paralysis or deep sedation and mechanical ventilation [ ]iii) Intracranial pressure or cerebral perfusion pressure monitoring [ ]iv) IV mannitol or hypertonic saline [ ]v) Frequent serum osmolality measurements [ ]b) Seizures with ANY ONE of the following(50): [ ]i) Status epilepticus [ ]ii) Airway compromise requiring or likely to require mechanical ventilation [ ]iii) Severe electrolyte abnormalities causing seizures [ ]c) Progressive acute neurologic dysfunction requiring or likely to require ANY ONE of the following: [ ]i) Mechanical ventilation [ ]ii) Intracranial pressure or cerebral perfusion pressure monitoring [ ]d) Meningitis with obtundation or respiratory insufficiency [C])(51 ) [ ]e) Stroke with ANY ONE of the following(52)(53): [ ]i) Need for observation after thrombolysis [ ]ii) Altered mental status [ ]iii) Need for mechanical ventilation [ ]iv) Elevated intracranial pressure [ ]v) Hypertensive emergency [ ]vi) High risk of progressive infarction or deterioration based on CT scan or MRI [ ]vii) Hemorrhage [ ]f) Acute coma [ ]g) Acute spontaneous intracranial hemorrhage(53)(54) [ ]h) Drug ingestion with ANY ONE of the following(56)(57): [ ]i) Hemodynamic instability [ ]ii) Respiratory depression (partial pressure of carbon dioxide >45 mm Hg (6.0 kPa), new) [ ]iii) Patient requires or is likely to require mechanical ventilation. [ ]iv) Arrhythmias [ ]v) Seizures [ ]vi) Altered mental status ([place] coma scale score less than 12, new) [ ]vii) Significant risk for acute deterioration (eg, toxic level of hypotension or arrhythmia-producing drug) [ ]viii) Drug-induced hypothermia or hyperthermia [ ]ix) Increasing metabolic acidosis [ ]x) Severe hypoglycemia requiring glucose infusion with frequent adjustment or glucagon administration [ ]xi) Ongoing antidote administration (eg, continuous naloxone infusion, organophosphate toxicity treatment) [ ]xii) Emergency intervention need (eg, dialysis, hemoperfusion, restraints) [ ]i) Brain with preparation for organ donation [ ]j) Traumatic brain injury with ANY ONE of the following(55): [ ]i) Altered mental status (eg, new onset Sivakumar coma scale score less than 10) [ ]ii) Cerebral edema [ ]iii) Cerebral hemorrhage [ ]iv) Increased intracranial pressure [ ]XIV. Neurosurgery diagnoses or procedures, including ANY ONE of the following(49)(58)(59): [ ]a) Emergency craniotomy for tumor, hematoma, or trauma [ ]b) Elective craniotomy for posterior fossa tumor [ ]c) Elective craniotomy (supratentorial) for tumor with ANY ONE of the following: [ ]i) Postoperative neurologic deficit or impaired consciousness 6 hours after completion of procedure [ ]ii) SBP less than 110 mm Hg or greater than 180 mm Hg despite therapy [ ]iii) Extensive operative blood loss [ ]iv) High anesthesia risk (eg, [place] [employer] score greater than 3 [ ]d) Craniotomy for aneurysm with ANY ONE of the following: [ ]i) Postoperative neurologic deficit or impaired consciousness 6 hours after completion of procedure [ ]ii) Preoperative Mcneill-Shrestha grade 3 or higher [ ]iii) SBP less than 110 mm Hg or greater than 180 mm Hg despite therapy [ ]iv) Intracranial pressure monitoring [ ]e) Acute spinal cord injury [ ]f) Subarachnoid hemorrhage [ ]g) Traumatic brain injury with ANY ONE of the following: [ ]i) Acute mental status change (Sivakumar coma scale score less than 10) [ ]ii) CT scan showing cerebral edema or hemorrhage [ ]iii) Intracranial pressure monitoring [ ]h) Complications of any surgery requiring ICU intervention as indicated by ANY ONE of the following(60): [ ]i) Hemodynamic instability [ ]ii) WI with complications (eg, severe arrhythmia, hypotension) [ ]iii) Excessive bleeding or severe coagulopathy [ ]iv) Respiratory failure [ ] v) Renal failure [ ]vi) Airway instability or obstruction [ ]vii) Neurologic deterioration [ ]viii) Infection with likelihood of sepsis syndrome or significant fluid shifts [ ]i) Preoperative or postoperative patients requiring ICU intervention, such as hemodynamic optimization, pulmonary artery monitoring, mechanical ventilation, or extensive nursing care [ ]XV.Obstetrics and Gynecology diagnoses or procedures, including ANY ONE of the ffg. (61)(62)(63): [ ]a) Severe peripartum condition as indicated by ANY ONE of the following: [ ]i) Eclampsia [ ]ii) Hypertensive emergency [ ]iii) HELLP syndrome (hemolysis, elevated liver enzymes, and low platelet count) [ ]iv) Pulmonary edema [ ]v) Respiratory failure [ ]vi) Pulmonary embolism [ ]vii) Anaphylactoid syndrome of (amniotic fluid embolus) [ ]viii) Ovarian hyperstimulation syndrome [D] [ ]ix) Acute fatty liver of (hepatic failure) [ ]x) Complications such as placental abruption or severe hemorrhage [ ]xi) Sepsis (eg, puerperal sepsis, chorioamnionitis, septic ) [ ]xii) cardiomyopathy with severe congestive heart failure (eg, respiratory failure, cardiogenic shock) [ ]b) Ruptured ectopic [ ]c) Complications of any surgery requiring ICU intervention as indicated by ANY ONE of the following: [ ]i) Hemodynamic instability [ ]ii) WI with complications (eg, severe arrhythmia, hypotension) [ ]iii) Excessive bleeding or severe coagulopathy [ ]iv) Respiratory failure [ ]v) Renal failure [ ]vi) Airway instability or obstruction [ ]vii) Neurologic deterioration [ ]viii) Infection with likelihood of sepsis syndrome or significant fluid shifts [ ]d) Preoperative or postoperative patients requiring ICU intervention , such as hemodynamic optimization, pulmonary artery monitoring, mechanical ventilation, or extensive nursing care [ ]XVI.Ophthalmology diagnoses or procedures, including ANY ONE of the following (64): [ ]a) Complications of any surgery requiring ICU intervention, such as ANY ONE of the following: [ ]i) Hemodynamic instability [ ]ii) WI with complications (eg, severe arrhythmia, hypotension) [ ]iii) Excessive bleeding or severe coagulopathy [ ]iv) Respiratory failure [ ]v) Renal failure [ ]vi) Airway instability or obstruction [ ]vii) Neurologic deterioration [ ]viii) Infection with likelihood of sepsis syndrome or significant fluid shifts [ ]b) Preoperative or postoperative patients requiring ICU intervention , such as hemodynamic optimization, pulmonary artery monitoring, mechanical ventilation, or extensive nursing care [ ]XVII.Orthopedics diagnoses or procedures, including ANY ONE of the following [phone]): [ ]a) Complications of any surgery requiring ICU intervention as indicated by ANY ONE of the following: [ ]i) Hemodynamic instability [ ]ii) WI with complications (eg, severe arrhythmia, hypotension) [ ]iii) Excessive bleeding or severe coagulopathy [ ]iv) Respiratory failure [ ]v) Renal failure [ ]vi) Airway instability or obstruction [ ] vii) Neurologic deterioration [ ]viii) Infection with likelihood of sepsis syndrome or significant fluid shifts [ ]b) Multiple trauma with complicating features as indicated by ANY ONE of the following(38): [ ]i) Impending acute respiratory failure due to lung contusion, unstable chest wall, pneumothorax, aspiration, or hemorrhage [ ]ii) Facial or neck injury threatening airway patency [ ]iii) Cardiac contusion [ ]iv) Rhabdomyolysis requiring large volume IV fluid resuscitation [ ]v) Pericardial effusion [ ]vi) Bronchial tear [ ]vii) Hemodynamic instability [ ]viii) Other significant complicating feature [ ]c) Threatened compartment syndrome [ ]d) Severe julien with ANY ONE of the following(68)(69)(70): [ ]i) Hypotension or requirement for aggressive fluid resuscitation [ ]ii) Respiratory insufficiency with requirement for high- flow oxygen or mechanical ventilation [ ]iii) Carbon monoxide poisoning [ ]iv) Life-threatening cardiac, renal, pulmonary, or neurologic dysfunction [ ]v) High-voltage (eg, 1000 volts or more) electrical burn [ ]vi) Requirement for frequent or intensive debridement and dressing changes; examples include: [ ]1) Partial thickness julien greater than 10% of body surface [ ]2) Julien on face, hands, feet, genitalia, perineum , or major joints [ ]3) Third-degree julien [ ]4) Any burn greater than 15% of body surface area [ ]vii) Inhalation lung injury [ ]viii) Concomitant trauma or other medical condition requiring ICU care [ ]e) Preoperative or postoperative patients requiring ICU intervention , such as hemodynamic optimization, pulmonary artery monitoring, mechanical ventilation, or extensive nursing care [ ]XVIII.Otolaryngology diagnoses or procedures, including ANY ONE of the following (71)(72): [ ]a) Complications of any surgery requiring ICU intervention as indicated by ANY ONE of the following: [ ]i) Hemodynamic instability [ ]ii) WI with complications (eg, severe arrhythmia, hypotension) [ ]iii) Excessive bleeding or severe coagulopathy [ ]iv) Respiratory failure [ ]v) Renal failure [ ]vi) Airway instability or obstruction [ ]vii) Neurologic deterioration [ ]viii) Infection with likelihood of sepsis syndrome or significant fluid shifts [ ]b) Airway or hemodynamic compromise that persists after 3 hours of observation in postanesthesia care unit following nasal, palate (eg, uvulopalatopharyngoplasty or palatoplasty), or tongue surgery for sleep apnea [ ]c) Preoperative or postoperative patient requiring ICU intervention, such as hemodynamic optimization, pulmonary artery monitoring, mechanical ventilation, or extensive nursing care [ ]d) Symptomatic upper airway compromise (eg, laryngeal edema, mass) [ ]e) Other airway-compromising procedure (eg, posterior nasal packing) [ ]XIX.Thoracic Surgery and Pulmonary Disease Diagnosis or procedures, including ANY ONE of the following(6): [ ]a) Asthma with ANY ONE of the following(73)(74): [ ]i) Impending or actual respiratory arrest [ ]ii) Need for mechanical ventilation [ ]iii) Peak expiratory flow rate less than 30% of predicted or personal best [ ]iv) Peak expiratory flow rate or FEV1 less than 40% predicted after 1 hour of initial treatment [ ]v) Acidosis [ ]vi) Persistent or worsening hypoxia after initial treatment [ ]vii) Hypercapnia (eg, partial pressure of carbon dioxide greater than 43 mm Hg (5.7 kPa)) [ ]viii) Severe drowsiness, confusion, or coma [ ]ix) Requiring continuous inhaled bronchodilator [ ]b) COPD with ANY ONE of the following(75): [ ]i) Need for assisted ventilation [ ]ii) Hemodynamic instability [ ]iii) Severe dyspnea unresponsive to initial treatment [ ]iv) Change in level of consciousness [ ]v) Persistent findings despite oxygen and outpatient management, including ANY ONE of the following: [ ]1) Partial pressure of oxygen less than 40 mm Hg ( 5.3 kPa) [ ]2) Partial pressure of carbon dioxide greater than 60 mm Hg (8.0 kPa) [ ]3) pH less than 7.25 [ ]4) Worsening hypoxemia or acidosis [ ]c) Cor pulmonale with ANY ONE of the following(75)(76)(77): [ ]i) Hemodynamic instability [ ]ii) Need for IV inotropic or vasoactive agent [ ]iii) Need for invasive hemodynamic monitoring (eg, central venous, pulmonary artery, or arterial catheter) [ ]iv) Hypoxemia with partial pressure of oxygen less than 40 mm Hg (5.3 kPa) [ ]v) Worsening hypoxemia or acidosis despite oxygen therapy [ ]vi) Need for assisted ventilation [ ]vii) Need for right ventricular assist device [ ]viii) Unstable atrial tachyarrhythmia [ ]ix) Need for inhaled nitric oxide [ ]d) Aspiration pneumonia with ANY ONE of the following(78): [ ]i) Acute respiratory distress syndrome (PaO2/FiO2 ratio of 300 or less) [ ]ii) Impending or actual respiratory arrest [ ]iii) Need for invasive or noninvasive mechanical ventilation [ ]e) Pneumocystis jiroveci pneumonia with ANY ONE of the following(79): [ ]i) Impending or actual respiratory arrest [ ]ii) Hypoxia (eg, PO260 mmGh (8.0 kPa) or less despite oxygen therapy) [ ]iii) Need for invasive or noninvasive mechanical ventilation [ ]f) Pneumonia with ANY ONE of the following(80)(81)(82): [ ]i) Need for invasive or noninvasive assisted ventilation [ ]ii) Hemodynamic instability [ ]iii) Severity factors as indicated by 3 or MORE of the following: [ ]1) Respiratory rate 30 breaths per minute or greater [ ]2) PaO2/FiO2 ratio of 250 or less [ ]3) Multilobed infiltrates [ ]4) Altered mental status [ ]5) BUN 20 mg/dL (7.1 mmol/L) or greater [ ]6) WBC count less than 4000/mm3 (4 x109/L) [ ]7) Platelet count <100,000/mm3 (100 x109/L) [ ]8) Temperature less than 36 degrees C (96.8 degrees F ) [ ]9) Hypotension requiring aggressive fluid resuscitation [ ]g) Pulmonary hypertension requiring initiation of parenteral pulmonary vasodilator or trial of inhaled nitric oxide (eg, need for right heart catheterization)(76) [ ]h) Impending respiratory failure as indicated by ANY ONE of the following: [ ]i) Respiratory rate greater than 30 or partial pressure of oxygen less than 60 mm Hg (8.0 kPa) on 50% oxygen or more [ ]ii) Partial pressure of carbon dioxide greater than 45 mm Hg (6.0 kPa) with pH less than 7.35 [ ]i) Respiratory failure with ANY ONE of the following (47): [ ]i) Need for invasive or noninvasive mechanical ventilation [ ]ii) High likelihood of requiring mechanical ventilation within 24 hours [ ]iii) Observation in the first several hours immediately after extubation from mechanical ventilation [ ]iv) Need for close observation and aggressive therapy, such as suctioning, chest physiotherapy, or inhalation treatments at intervals less than 1 hour [ ]v) Pharmacologic ventilatory paralysis [ ]j) Venous thromboembolism with need for systemic or catheter- directed thrombolysis (eg, for limb-threatening thrombosis, phlegmasia cerulea dolens) (83) [ ]k) Pulmonary embolus with ANY ONE of the following(83): [ ]i) Hypotension [ ]ii) Severe hypoxia [ ]iii) Dangerous arrhythmia [ ]iv) Bleeding [ ]v) Need for systemic or catheter-directed thrombolysis [ ]l) Lobectomy or other major thoracic surgery [ ]m) Lung transplant [ ]n) Symptomatic upper airway obstruction (eg, laryngeal edema, mass) [ ]o) Massive hemoptysis [ ]p) Infection or thrombosis of an intravenous device with ANY ONE of the following(6)(84): [ ]i) Hemodynamic instability [ ]ii) Requirement for frequent hemodynamic measurements [ ]iii) Shock [ ]iv) End organ dysfunction [ ] v) Acute renal failure due to missed dialysis [ ]vi) Unstable acute complication (eg, pericardial tamponade , tension pneumothorax) [ ]q) Traumatic rib fracture or fractures with ANY ONE of the following(85): [ ]i) Injury severity score of 19 or greater [ ]ii) Respiratory insufficiency [ ]iii) Flail chest [ ]iv) Sternum fracture [ ]v) Vascular injury (eg, heart or great vessels) [ ]r) Pleural effusion with ANY ONE of the following(86): [ ]i) Respiratory insufficiency [ ]ii) Hemothorax with active ongoing bleeding [ ]iii) Hemodynamic instability [ ]iv) Unstable comorbid condition (eg, sepsis or heart failure [ ]XX. Urology diagnoses or procedures, including ANY ONE of the following ( 87)(88): [ ]a) Renal transplant [ ]b) Complications of any surgery requiring ICU intervention as indicated by ANY ONE of the following: [ ]i) Hemodynamic instability [ ]ii) WI with complications (eg, severe arrhythmia, hypotension) [ ]iii) Excessive bleeding or severe coagulopathy [ ]iv) Respiratory failure [ ]v) Renal failure [ ]vi) Airway instability or obstruction [ ]vii) Neurologic deterioration [ ]viii) Infection with likelihood of sepsis syndrome or significant fluid shifts [ ]c) Preoperative or postoperative patients requiring ICU intervention , such as hemodynamic optimization, pulmonary artery monitoring, mechanical ventilation , or extensive nursing care [ ]XXI.Infectious Disease diagnoses or procedures, with ANY ONE of the following (6)(43): [ ]a) Hemodynamic instability [ ]b) Shock [ ]c) Requirement for frequent hemodynamic measurements (eg, arterial catheter, pulmonary artery catheter) [ ]d) Sepsis or suspected sepsis with end organ dysfunction (eg, acute kidney injury, acute respiratory distress syndrome) [ ]e) Necrotizing soft tissue infection [ ] XXII.Hematology - Oncology diagnoses or procedures, including chemotherapy administration with ANY ONE of the following(42): [ ]a) Hemodynamic instability [ ]b) Tumor lysis syndrome with ANY ONE of the following : [ ]1) Acute kidney injury [ ]2) Severe electrolyte abnormality [ ]3) Cardiac dysrhythmia [ ]XXIII. Systemic conditions, including ANY ONE of the following: [ ]a) Severe electrolyte or metabolic disturbance causing or likely to cause ANY ONE of the following(10)(89)(90): [ ]i) Life-threatening cardiac dysrhythmia [ ]ii) Respiratory insufficiency [ ]iii) Altered mental status [ ]iv) Seizures [ ]v) Hemodynamic instability [ ]vi) Muscular weakness [ ]b) Environmental injuries such as hypothermia, hyperthermia, electrical injuries, or near drowning(70)(91)(92) The original [facility] content created by [employer] has been revised. The portions of the content which have been revised are identified through the use of italic text or in bold, and [facility] has neither reviewed nor approved the modified material. All other unmodified content is copyright [facility]. Please see references footnoted in the original [facility] edition 2016 Admission Criteria Met?: Yes CHRISTINA MORENO November 09, 2016 04:41
[2016-11-09] MEDS: INSULIN ASPART 300 UNITS/3 ML INSULN.PEN SQ SCH ×7 (06:04→23:44)
[2016-11-09 06:09] LABS: CREATININE 0.7 mg/dL (0.7-1.3); GFR 122.5
[2016-11-09 06:15] LABS: POTASSIUM 2.2 mmol/L (3.5-5.1)
--- NOTE | 2016-11-09 07:18 | RAD ---
Indication: Respiratory failure. Time of exam 0617 hours. Comparison is made with prior chest 1 day earlier. The ET tube remains with tip above the gely. NG tube passes below the diaphragm. Right IJ line has tip overlying the SVC right atrial junction. There appears to be some increasing infiltrate or atelectasis in the left base obscuring the left hemidiaphragm on today's study. Right lung is clear. Postop changes with multiple plates and screws transfixing multiple right-sided ribs are again noted Impression: Developing infiltrate or atelectasis in the left base when compared with exam one day earlier.
--- NOTE | 2016-11-09 07:34 | PDOC ---
Infectious Disease Note Subjective Subjective Intubated/sedated ROS ROS Unobtainable Vital Sign Vital Signs Vital Signs Date Time Temp Pulse Resp B/P (MAP) Pulse Ox O2 Delivery O2 Flow Rate FiO2 11/09/16 06:00 86 24 159/96 (117) 100 Ventilator 11/09/16 04:00 98.8 98.8 Physical Exam PHYSICAL EXAM GENERAL: A thin male, intubated and sedated.. HEENT: Pupils equally round, nonreactive to light. OGT and ETT in place. LUNGS: Clear to auscultation. HEART: Normal S1 and S2. ABDOMEN: Nondistended. Bowel sounds are present. Soft. No grimace or guarding to palpation. GENITOURINARY: He has a Jhaveri. EXTREMITIES: No gross edema or cyanosis. SKIN: Without rash. Small pustular, right medial thigh.- clean NEUROLOGIC: Sedated. Minimally arousable. He has mittens on. LINES: RIJ. Clean. Labs Lab Laboratory Tests Test 11/08/16 08:00 11/08/16 09:03 11/08/16 11:38 11/08/16 13:51 O2 Saturation 98 % (92-99) Arterial Blood pH 7.37 (7.35-7.45) Arterial Blood pCO2 at Patient Temp 30 mmHg (35-46) Arterial Blood pO2 at Patient Temp 134 mmHg (75-108) Arterial Blood HCO3 17 mmol/L (21-28) Arterial Blood Base Excess -7 mmol/L (-3-3) FiO2 40 Glucose (Fingerstick) 301 mg/dL (70-99) 277 mg/dL (70-99) 137 mg/dL (70-99) Test 11/08/16 16:33 11/08/16 17:17 11/08/16 20:53 11/08/16 23:56 Glucose (Fingerstick) 65 mg/dL (70-99) 117 mg/dL (70-99) 248 mg/dL (70-99) 314 mg/dL (70-99) Test 11/09/16 05:46 11/09/16 05:51 Sodium Level 140 mmol/L (136-145) Potassium Level 2.2 mmol/L (3.5-5.1) Chloride Level 109 mmol/L (98-107) Carbon Dioxide Level 21 mmol/L (21-32) Anion Gap 10 (6-14) Blood Urea Nitrogen 13 mg/dL (8-26) Creatinine 0.7 mg/dL (0.7-1.3) Estimated GFR (Cockcroft-Gault) 122.5 Glucose Level 277 mg/dL (70-99) Calcium Level 8.0 mg/dL (8.5-10.1) Glucose (Fingerstick) 204 mg/dL (70-99) Objective Assessment LLL pneumonia. Repeat cxr improved Leukocytosis, improved Allergy amoxicillin & Augmentin. unknown reaction DKA, improved Acute encephalopathy Acute respiratory failure s/p intubation RAVEN, improved Alcoholism Polysubstance abuse. Plan Plan of Care Cont Levaquin f/u cultures Monitor labs Supportive care Reviewed Previous records critically ill NIRALI PETIT MD November 09, 2016 07:34
[2016-11-09 07:43] LABS: BASO % 0 % (0-3); EOS % 1 % (0-3); HEMATOCRIT 27.6 % (39.0-53.0); HEMOGLOBIN 9.7 g/dL (13.0-17.5); LYMPH # 1.4 x10^3/uL (1.0-4.8); LYMPH % 20 % (24-48); MEAN CORPUSCULAR HEMOGLOBIN 33 pg (25-35); MEAN CORPUSCULAR HGB CONC 35 g/dL (31-37); MEAN CORPUSCULAR VOLUME 94 fL (79-100); MONO % 7 % (0-9); NEUT % 73 % (31-73); PLATELET COUNT 99 x10^3/uL (140-400); RED BLOOD COUNT 2.93 x10^6/uL (4.30-5.70); WHITE BLOOD COUNT 6.8 x10^3/uL (4.0-11.0)
[2016-11-09] MEDS: POTASSIUM CHLORIDE 20MEQ 50 ML IV SCH ×10 (07:43→23:44)
[2016-11-09] MEDS: PANTOPRAZOLE IV PUSH 40 MG VIAL. IVP SCH ×2 (08:42→21:05)
[2016-11-09] MEDS: LABETALOL 20 MG/4 ML DISP.SYRIN. IVP PRN ×2 (08:43→15:17)
[2016-11-09] MEDS: ENOXAPARIN 40 MG/0.4 ML SYRINGE. SQ SCH (08:43)
[2016-11-09 08:53] LABS: HCO3 ABG 19 mmol/L (21-28); PCO2 ABG 27 mmHg (35-46); PH ABG 7.47 (7.35-7.45); PO2 ABG 95 mmHg (75-108); SAT O2 ABG 97 % (92-99)
[2016-11-09 08:56] LABS: FIO2 ABG 35
--- NOTE | 2016-11-09 09:28 | PDOC ---
PROGRESS NOTES Chief Complaint Chief Complaint Acute respir failure ASSESSMENT AND PLAN: 1. LLL PNA: improving. on levaquin 2. Sepsis: remains tachycardic, but afeb, normalized WBC 3. DKA: off insulin gtt, gap closed 4. DM2: on levemir and humalog. ISS 5. Acute metabolic acidosis: resolved 6. Acute metabolic encephalopathy: comatose on presentation, requiring emergent intubation; remains intubated with plans for weaning trial, extubation today. as per Pulm service .7 Leukocytosis: resolved 8. RAVEN: resolved. 9. Hypokalemia: severe. replete IV/OG 10. Alcoholism. 11. Polysubstance abuse. History of Present Illness History of Present Illness intubated, lightly sedated Vitals Vitals Vital Signs Date Time Temp Pulse Resp B/P (MAP) Pulse Ox O2 Delivery O2 Flow Rate FiO2 11/09/16 08:43 82 164/102 11/09/16 08:31 100 Ventilator 11/09/16 08:00 98.9 23 98.9 Physical Exam General: severe distress, Other Heart: No murmurs, Other (tachy) Lungs: Clear Abdomen: Normal bowel sounds, Soft Extremities: No clubbing, Other Skin: No rashes, Other Labs LABS Laboratory Tests Test 11/08/16 11:38 11/08/16 13:51 11/08/16 16:33 11/08/16 17:17 Glucose (Fingerstick) 277 mg/dL (70-99) 137 mg/dL (70-99) 65 mg/dL (70-99) 117 mg/dL (70-99) Test 11/08/16 20:53 11/08/16 23:56 11/09/16 05:46 11/09/16 05:51 Glucose (Fingerstick) 248 mg/dL (70-99) 314 mg/dL (70-99) 204 mg/dL (70-99) White Blood Count 6.8 x10^3/uL (4.0-11.0) Red Blood Count 2.93 x10^6/uL (4.30-5.70) Hemoglobin 9.7 g/dL (13.0-17.5) Hematocrit 27.6 % (39.0-53.0) Mean Corpuscular Volume 94 fL (79-100) Mean Corpuscular Hemoglobin 33 pg (25-35) Mean Corpuscular Hemoglobin Concent 35 g/dL (31-37) Red Cell Distribution Width 14.0 % (11.5-14.5) Platelet Count 99 x10^3/uL (140-400) Neutrophils (%) (Auto) 73 % (31-73) Lymphocytes (%) (Auto) 20 % (24-48) Monocytes (%) (Auto) 7 % (0-9) Eosinophils (%) (Auto) 1 % (0-3) Basophils (%) (Auto) 0 % (0-3) Neutrophils # (Auto) 4.9 x10^3uL (1.8-7.7) Lymphocytes # (Auto) 1.4 x10^3/uL (1.0-4.8) Monocytes # (Auto) 0.5 x10^3/uL (0.0-1.1) Eosinophils # (Auto) 0.0 x10^3/uL (0.0-0.7) Basophils # (Auto) 0.0 x10^3/uL (0.0-0.2) Sodium Level 140 mmol/L (136-145) Potassium Level 2.2 mmol/L (3.5-5.1) Chloride Level 109 mmol/L (98-107) Carbon Dioxide Level 21 mmol/L (21-32) Anion Gap 10 (6-14) Blood Urea Nitrogen 13 mg/dL (8-26) Creatinine 0.7 mg/dL (0.7-1.3) Estimated GFR (Cockcroft-Gault) 122.5 Glucose Level 277 mg/dL (70-99) Calcium Level 8.0 mg/dL (8.5-10.1) Test 11/09/16 07:49 11/09/16 08:30 Glucose (Fingerstick) 149 mg/dL (70-99) O2 Saturation 97 % (92-99) Arterial Blood pH 7.47 (7.35-7.45) Arterial Blood pCO2 at Patient Temp 27 mmHg (35-46) Arterial Blood pO2 at Patient Temp 95 mmHg (75-108) Arterial Blood HCO3 19 mmol/L (21-28) Arterial Blood Base Excess -4 mmol/L (-3-3) FiO2 35 Comment Review of Relevant Labs Vitals/I & O LILIBETH DIAZ MD November 09, 2016 09:28
--- NOTE | 2016-11-09 11:08 | PDOC ---
PULMONARY PROGRESS NOTES Subjective awake off sedation Vitals Vital Signs Date Time Temp Pulse Resp B/P (MAP) Pulse Ox O2 Delivery O2 Flow Rate FiO2 11/09/16 10:00 80 24 141/83 (102) 100 Ventilator 11/09/16 08:00 98.9 98.9 General: No acute distress Lungs: Clear Cardiovascular: S1 Abdomen: Soft Extremities: No Edema Skin: Warm Labs Laboratory Tests Test 11/07/16 17:00 11/07/16 17:22 11/07/16 17:50 11/07/16 18:29 Lactic Acid Level 1.6 mmol/L (0.4-2.0) O2 Saturation 98 % (92-99) Arterial Blood pH 6.87 (7.35-7.45) Arterial Blood pCO2 at Patient Temp 25 mmHg (35-46) Arterial Blood pO2 at Patient Temp 134 mmHg (75-108) Arterial Blood HCO3 5 mmol/L (21-28) Arterial Blood Base Excess -28 mmol/L (-3-3) FiO2 40 Urine Collection Type Unknown Urine Color Yellow Urine Clarity Cloudy Urine pH 5.0 Urine Specific Biddle 1.025 Urine Protein 30 mg/dL (NEG-TRACE) Urine Glucose (UA) >=1000 mg/dL (NEG) Urine Ketones (Stick) 40 mg/dL (NEG) Urine Blood Moderate (NEG) Urine Nitrite Negative (NEG) Urine Bilirubin Moderate (NEG) Urine Urobilinogen Dipstick 1.0 mg/dL (0.2 mg/dL) Urine Leukocyte Esterase Negative (NEG) Urine RBC Rare /HPF (0-2) Urine WBC 0 /HPF (0-4) Urine Squamous Epithelial Cells Occ /LPF Urine Bacteria 0 /HPF (0-FEW) Urine Opiates Screen Neg (NEG) Urine Methadone Screen Neg (NEG) Urine Barbiturates Neg (NEG) Urine Phencyclidine Screen Neg (NEG) Urine Amphetamine/Methamphetamine Pos (NEG) Urine Benzodiazepines Screen Neg (NEG) Urine Cocaine Screen Neg (NEG) Urine Cannabinoids Screen Neg (NEG) Urine Ethyl Alcohol Neg (NEG) Sodium Level 130 mmol/L (136-145) Potassium Level 6.0 mmol/L (3.5-5.1) Chloride Level 96 mmol/L (98-107) Carbon Dioxide Level 7 mmol/L (21-32) Anion Gap 27 (6-14) Blood Urea Nitrogen 42 mg/dL (8-26) Creatinine 2.1 mg/dL (0.7-1.3) Estimated GFR (Cockcroft-Gault) 34.5 BUN/Creatinine Ratio 20 (6-20) Glucose Level 766 mg/dL (70-99) Calcium Level 9.4 mg/dL (8.5-10.1) Total Bilirubin 0.8 mg/dL (0.2-1.0) Aspartate Amino Transf (AST/SGOT) 83 U/L (15-37) Alanine Aminotransferase (ALT/SGPT) 71 U/L (16-63) Alkaline Phosphatase 134 U/L (46-116) Ammonia 26 mcmol/L (11-34) Total Protein 7.6 g/dL (6.4-8.2) Albumin 3.4 g/dL (3.4-5.0) Albumin/Globulin Ratio 0.8 (1.0-1.7) Test 11/07/16 19:50 11/07/16 19:54 11/07/16 20:55 11/07/16 22:03 White Blood Count 25.1 x10^3/uL (4.0-11.0) Red Blood Count 4.25 x10^6/uL (4.30-5.70) Hemoglobin 13.6 g/dL (13.0-17.5) Hematocrit 41.7 % (39.0-53.0) Mean Corpuscular Volume 98 fL (79-100) Mean Corpuscular Hemoglobin 32 pg (25-35) Mean Corpuscular Hemoglobin Concent 33 g/dL (31-37) Red Cell Distribution Width 14.4 % (11.5-14.5) Platelet Count 220 x10^3/uL (140-400) Neutrophils (%) (Auto) 90 % (31-73) Lymphocytes (%) (Auto) 3 % (24-48) Monocytes (%) (Auto) 6 % (0-9) Eosinophils (%) (Auto) 0 % (0-3) Basophils (%) (Auto) 0 % (0-3) Neutrophils # (Auto) 22.6 x10^3uL (1.8-7.7) Lymphocytes # (Auto) 0.9 x10^3/uL (1.0-4.8) Monocytes # (Auto) 1.5 x10^3/uL (0.0-1.1) Eosinophils # (Auto) 0.0 x10^3/uL (0.0-0.7) Basophils # (Auto) 0.1 x10^3/uL (0.0-0.2) Segmented Neutrophils % 81 % (35-66) Band Neutrophils % 12 % (0-9) Lymphocytes % 4 % (24-48) Monocytes % 3 % (0-10) Toxic Granulation Mod Platelet Estimate Adequate (ADEQUATE) Nasal Screen MRSA (PCR) Negative (Negative) Glucose Level 616 mg/dL (70-99) O2 Saturation 98 % (92-99) Arterial Blood pH 7.28 (7.35-7.45) Arterial Blood pCO2 at Patient Temp 19 mmHg (35-46) Arterial Blood pO2 at Patient Temp 97 mmHg (75-108) Arterial Blood HCO3 8 mmol/L (21-28) Arterial Blood Base Excess -16 mmol/L (-3-3) FiO2 40 Test 11/07/16 22:28 11/07/16 22:30 11/07/16 23:31 11/08/16 00:37 Glucose (Fingerstick) 428 mg/dL (70-99) 408 mg/dL (70-99) 355 mg/dL (70-99) Sodium Level 137 mmol/L (136-145) Potassium Level 3.2 mmol/L (3.5-5.1) Chloride Level 102 mmol/L (98-107) Carbon Dioxide Level 10 mmol/L (21-32) Anion Gap 25 (6-14) Blood Urea Nitrogen 39 mg/dL (8-26) Creatinine 1.7 mg/dL (0.7-1.3) Estimated GFR (Cockcroft-Gault) 44.0 Glucose Level 448 mg/dL (70-99) Calcium Level 8.7 mg/dL (8.5-10.1) Phosphorus Level 1.9 mg/dL (2.6-4.7) Magnesium Level 1.3 mg/dL (1.8-2.4) Test 11/08/16 01:40 11/08/16 02:47 11/08/16 04:25 11/08/16 04:30 Glucose (Fingerstick) 258 mg/dL (70-99) 185 mg/dL (70-99) White Blood Count 12.0 x10^3/uL (4.0-11.0) Red Blood Count 3.44 x10^6/uL (4.30-5.70) Hemoglobin 11.2 g/dL (13.0-17.5) Hematocrit 32.2 % (39.0-53.0) Mean Corpuscular Volume 94 fL (79-100) Mean Corpuscular Hemoglobin 32 pg (25-35) Mean Corpuscular Hemoglobin Concent 35 g/dL (31-37) Red Cell Distribution Width 13.9 % (11.5-14.5) Platelet Count 140 x10^3/uL (140-400) Neutrophils (%) (Auto) 78 % (31-73) Lymphocytes (%) (Auto) 13 % (24-48) Monocytes (%) (Auto) 9 % (0-9) Eosinophils (%) (Auto) 0 % (0-3) Basophils (%) (Auto) 0 % (0-3) Neutrophils # (Auto) 9.3 x10^3uL (1.8-7.7) Lymphocytes # (Auto) 1.5 x10^3/uL (1.0-4.8) Monocytes # (Auto) 1.0 x10^3/uL (0.0-1.1) Eosinophils # (Auto) 0.0 x10^3/uL (0.0-0.7) Basophils # (Auto) 0.1 x10^3/uL (0.0-0.2) Sodium Level 140 mmol/L (136-145) Potassium Level 3.7 mmol/L (3.5-5.1) Chloride Level 109 mmol/L (98-107) Carbon Dioxide Level 21 mmol/L (21-32) Anion Gap 10 (6-14) Blood Urea Nitrogen 32 mg/dL (8-26) Creatinine 1.3 mg/dL (0.7-1.3) Estimated GFR (Cockcroft-Gault) 60.0 Glucose Level 128 mg/dL (70-99) Calcium Level 8.4 mg/dL (8.5-10.1) Phosphorus Level 2.2 mg/dL (2.6-4.7) Magnesium Level 2.5 mg/dL (1.8-2.4) Test 11/08/16 05:08 11/08/16 06:13 11/08/16 08:00 11/08/16 09:03 Glucose (Fingerstick) 127 mg/dL (70-99) 123 mg/dL (70-99) 301 mg/dL (70-99) O2 Saturation 98 % (92-99) Arterial Blood pH 7.37 (7.35-7.45) Arterial Blood pCO2 at Patient Temp 30 mmHg (35-46) Arterial Blood pO2 at Patient Temp 134 mmHg (75-108) Arterial Blood HCO3 17 mmol/L (21-28) Arterial Blood Base Excess -7 mmol/L (-3-3) FiO2 40 Test 11/08/16 11:38 11/08/16 13:51 11/08/16 16:33 11/08/16 17:17 Glucose (Fingerstick) 277 mg/dL (70-99) 137 mg/dL (70-99) 65 mg/dL (70-99) 117 mg/dL (70-99) Test 11/08/16 20:53 11/08/16 23:56 11/09/16 05:46 11/09/16 05:51 Glucose (Fingerstick) 248 mg/dL (70-99) 314 mg/dL (70-99) 204 mg/dL (70-99) White Blood Count 6.8 x10^3/uL (4.0-11.0) Red Blood Count 2.93 x10^6/uL (4.30-5.70) Hemoglobin 9.7 g/dL (13.0-17.5) Hematocrit 27.6 % (39.0-53.0) Mean Corpuscular Volume 94 fL (79-100) Mean Corpuscular Hemoglobin 33 pg (25-35) Mean Corpuscular Hemoglobin Concent 35 g/dL (31-37) Red Cell Distribution Width 14.0 % (11.5-14.5) Platelet Count 99 x10^3/uL (140-400) Neutrophils (%) (Auto) 73 % (31-73) Lymphocytes (%) (Auto) 20 % (24-48) Monocytes (%) (Auto) 7 % (0-9) Eosinophils (%) (Auto) 1 % (0-3) Basophils (%) (Auto) 0 % (0-3) Neutrophils # (Auto) 4.9 x10^3uL (1.8-7.7) Lymphocytes # (Auto) 1.4 x10^3/uL (1.0-4.8) Monocytes # (Auto) 0.5 x10^3/uL (0.0-1.1) Eosinophils # (Auto) 0.0 x10^3/uL (0.0-0.7) Basophils # (Auto) 0.0 x10^3/uL (0.0-0.2) Sodium Level 140 mmol/L (136-145) Potassium Level 2.2 mmol/L (3.5-5.1) Chloride Level 109 mmol/L (98-107) Carbon Dioxide Level 21 mmol/L (21-32) Anion Gap 10 (6-14) Blood Urea Nitrogen 13 mg/dL (8-26) Creatinine 0.7 mg/dL (0.7-1.3) Estimated GFR (Cockcroft-Gault) 122.5 Glucose Level 277 mg/dL (70-99) Calcium Level 8.0 mg/dL (8.5-10.1) Test 11/09/16 07:49 11/09/16 08:30 Glucose (Fingerstick) 149 mg/dL (70-99) O2 Saturation 97 % (92-99) Arterial Blood pH 7.47 (7.35-7.45) Arterial Blood pCO2 at Patient Temp 27 mmHg (35-46) Arterial Blood pO2 at Patient Temp 95 mmHg (75-108) Arterial Blood HCO3 19 mmol/L (21-28) Arterial Blood Base Excess -4 mmol/L (-3-3) FiO2 35 Laboratory Tests Test 11/08/16 11:38 11/08/16 13:51 11/08/16 16:33 11/08/16 17:17 Glucose (Fingerstick) 277 mg/dL (70-99) 137 mg/dL (70-99) 65 mg/dL (70-99) 117 mg/dL (70-99) Test 11/08/16 20:53 11/08/16 23:56 11/09/16 05:46 11/09/16 05:51 Glucose (Fingerstick) 248 mg/dL (70-99) 314 mg/dL (70-99) 204 mg/dL (70-99) White Blood Count 6.8 x10^3/uL (4.0-11.0) Red Blood Count 2.93 x10^6/uL (4.30-5.70) Hemoglobin 9.7 g/dL (13.0-17.5) Hematocrit 27.6 % (39.0-53.0) Mean Corpuscular Volume 94 fL (79-100) Mean Corpuscular Hemoglobin 33 pg (25-35) Mean Corpuscular Hemoglobin Concent 35 g/dL (31-37) Red Cell Distribution Width 14.0 % (11.5-14.5) Platelet Count 99 x10^3/uL (140-400) Neutrophils (%) (Auto) 73 % (31-73) Lymphocytes (%) (Auto) 20 % (24-48) Monocytes (%) (Auto) 7 % (0-9) Eosinophils (%) (Auto) 1 % (0-3) Basophils (%) (Auto) 0 % (0-3) Neutrophils # (Auto) 4.9 x10^3uL (1.8-7.7) Lymphocytes # (Auto) 1.4 x10^3/uL (1.0-4.8) Monocytes # (Auto) 0.5 x10^3/uL (0.0-1.1) Eosinophils # (Auto) 0.0 x10^3/uL (0.0-0.7) Basophils # (Auto) 0.0 x10^3/uL (0.0-0.2) Sodium Level 140 mmol/L (136-145) Potassium Level 2.2 mmol/L (3.5-5.1) Chloride Level 109 mmol/L (98-107) Carbon Dioxide Level 21 mmol/L (21-32) Anion Gap 10 (6-14) Blood Urea Nitrogen 13 mg/dL (8-26) Creatinine 0.7 mg/dL (0.7-1.3) Estimated GFR (Cockcroft-Gault) 122.5 Glucose Level 277 mg/dL (70-99) Calcium Level 8.0 mg/dL (8.5-10.1) Test 11/09/16 07:49 11/09/16 08:30 Glucose (Fingerstick) 149 mg/dL (70-99) O2 Saturation 97 % (92-99) Arterial Blood pH 7.47 (7.35-7.45) Arterial Blood pCO2 at Patient Temp 27 mmHg (35-46) Arterial Blood pO2 at Patient Temp 95 mmHg (75-108) Arterial Blood HCO3 19 mmol/L (21-28) Arterial Blood Base Excess -4 mmol/L (-3-3) FiO2 35 Medications Active Scripts Medications Dose Route/Sig Max Daily Dose Days Date Category Klor-Con M20 (Potassium Chloride) 20 Meq Tab.er.prt 20 Meq PO BIDWMEALS 04/08/16 Rx Apidra Solostar (Insulin Glulisine) 100 Unit/1 Ml Insuln.pen 17 Unit SQ TIDACHC 04/06/16 Reported Lantus Solostar (Insulin Glargine,Hum.rec.anlog) 100 Unit/1 Ml Insuln.pen 48 Unit SQ QHS 04/27/15 Reported Spironolactone 25 Mg Tablet 25 Mg PO DAILY 04/27/15 Reported Gabapentin 400 Mg Capsule 400 Mg PO DAILY 04/27/15 Reported Ramipril 2.5 Mg Capsule 2.5 Mg PO DAILY 04/27/15 Reported Levothyroxine Sodium 75 Mcg Tablet 75 Mcg PO DAILYAC 04/27/15 Reported Fenofibrate 160 Mg Tablet 160 Mg PO DAILY 04/27/15 Reported Lisinopril 20 Mg Tablet 20 Mg PO DAILY 04/27/15 Reported Furosemide 20 Mg Tablet 20 Mg PO QODAY 04/27/15 Reported Hydrochlorothiazide Tablet (Hydrochlorothiazide) 25 Mg Tablet 25 Mg PO DAILY 04/27/15 Reported Atorvastatin Calcium 10 Mg Tablet 10 Mg PO DAILY 04/27/15 Reported Impression . 1. Acute respiratory failure, multifactorial (DKA, encephalopathy, Meth) 2. Acute metabolic encephalopathy. improved 3. Abnormal chest x-ray.increase LLL infiltrate 4. Pneumonia.LLL 5. Diabetic ketoacidosis. 6. Severe metabolic acidosis, improved 7. Leukocytosis.improved 8. Diabetes mellitus. 9. Legally blind. 10. History of alcohol abuse. Plan . 1. Titrate FiO2 to keep O2 saturation to 94%. 2. CPAP trial 3. antibiotic. 4. Sputum culture. 5. Lovenox for DVT prophylaxis. 6. Protonix for stress ulcer prophylaxis. 7. replace K 9. Elevate head of bed. 10. The findings and recommendations were discussed with ALISA BARTON MD November 09, 2016 11:08
[2016-11-09 12:03] LABS: HCO3 ABG 18 mmol/L (21-28); PCO2 ABG 28 mmHg (35-46); PH ABG 7.43 (7.35-7.45); PO2 ABG 101 mmHg (75-108); SAT O2 ABG 98 % (92-99)
[2016-11-09 12:04] LABS: FIO2 ABG 35
--- NOTE | 2016-11-09 13:23 | PDOC ---
Objective: Objective: No reports of bleeding per staff. Some dark contents in OG canister. Vital Signs: Vital Signs Date Time Temp Pulse Resp B/P (MAP) Pulse Ox O2 Delivery O2 Flow Rate FiO2 11/09/16 12:00 Mechanical Ventilator 11/09/16 12:00 98.8 87 24 148/89 (108) 100 98.8 Labs: Laboratory Tests Test 11/08/16 13:51 11/08/16 16:33 11/08/16 17:17 11/08/16 20:53 Glucose (Fingerstick) 137 mg/dL 65 mg/dL 117 mg/dL 248 mg/dL Test 11/08/16 23:56 11/09/16 05:46 11/09/16 05:51 11/09/16 07:49 Glucose (Fingerstick) 314 mg/dL 204 mg/dL 149 mg/dL White Blood Count 6.8 x10^3/uL Red Blood Count 2.93 x10^6/uL Hemoglobin 9.7 g/dL Hematocrit 27.6 % Mean Corpuscular Volume 94 fL Mean Corpuscular Hemoglobin 33 pg Mean Corpuscular Hemoglobin Concent 35 g/dL Red Cell Distribution Width 14.0 % Platelet Count 99 x10^3/uL Neutrophils (%) (Auto) 73 % Lymphocytes (%) (Auto) 20 % Monocytes (%) (Auto) 7 % Eosinophils (%) (Auto) 1 % Basophils (%) (Auto) 0 % Neutrophils # (Auto) 4.9 x10^3uL Lymphocytes # (Auto) 1.4 x10^3/uL Monocytes # (Auto) 0.5 x10^3/uL Eosinophils # (Auto) 0.0 x10^3/uL Basophils # (Auto) 0.0 x10^3/uL Sodium Level 140 mmol/L Potassium Level 2.2 mmol/L Chloride Level 109 mmol/L Carbon Dioxide Level 21 mmol/L Anion Gap 10 Blood Urea Nitrogen 13 mg/dL Creatinine 0.7 mg/dL Estimated GFR (Cockcroft-Gault) 122.5 Glucose Level 277 mg/dL Calcium Level 8.0 mg/dL Test 11/09/16 08:30 11/09/16 11:28 11/09/16 11:45 O2 Saturation 97 % 98 % Arterial Blood pH 7.47 7.43 Arterial Blood pCO2 at Patient Temp 27 mmHg 28 mmHg Arterial Blood pO2 at Patient Temp 95 mmHg 101 mmHg Arterial Blood HCO3 19 mmol/L 18 mmol/L Arterial Blood Base Excess -4 mmol/L -5 mmol/L FiO2 35 35 Glucose (Fingerstick) 150 mg/dL Imaging: CXR 11/09/16 Impression: Developing infiltrate or atelectasis in the left base when compared with exam one day earlier. PE: GEN: intubated LUNGS: vent HEART: tachycardic ABD: soft, non-tender, OG canister w/ dark contents NEURO/PSYCH: flutters eyes when I say his name A/P: Coffee-ground emesis/dark contents in OG -on PPI -Hgb from 13.6 to 11.2 to 9.7, normal BUN Resp failure, DKA, encephalopathy -intubated in ICU, possible extubation today Substance abuse -- Some drift in Hgb. Continue PPI, will review w/ Dr. Xiao. BART PARKS November 09, 2016 13:23
[2016-11-09] MEDS ORDERED: SODIUM BICARB ADULT 8.4% 50 MEQ/50 ML DISP.SYRIN. IV ONE (13:30)
[2016-11-09 19:22] LABS: ALBUMIN 2.3 g/dL (3.4-5.0); ALBUMIN/GLOBULIN RATIO 0.9 (1.0-1.7); CALCIUM 8.2 mg/dL (8.5-10.1); CREATININE 0.6 mg/dL (0.7-1.3); GFR 146.4; TOTAL BILIRUBIN 0.5 mg/dL (0.2-1.0); TOTAL PROTEIN 4.9 g/dL (6.4-8.2)
[2016-11-09 19:27] LABS: POTASSIUM 2.8 mmol/L (3.5-5.1)
[2016-11-09] MEDS ORDERED: POTASSIUM CHLORIDE 20MEQ 50 ML IV PRN ×3 (19:45)
[2016-11-09] MEDS ORDERED: CHLORHEXIDINE 0.12% 15 ML MOUTHWASH. SWSP SCH (21:00)
[2016-11-09] MEDS: INSULIN DETEMIR 300 UNITS/3 ML INSULN.PEN. SQ SCH (21:07)
[2016-11-09] MEDS: MORPHINE SULFATE 2 MG/ML DISP.SYRIN. IV PRN (23:48)
[2016-11-10] VITALS (15 sets, daily range): BP systolic 105–152; BP diastolic 68–101
[2016-11-10 03:53] LABS: BASO % 1 % (0-3); EOS % 2 % (0-3); HEMATOCRIT 31.4 % (39.0-53.0); HEMOGLOBIN 11.5 g/dL (13.0-17.5); LYMPH # 2.2 x10^3/uL (1.0-4.8); LYMPH % 30 % (24-48); MEAN CORPUSCULAR HEMOGLOBIN 33 pg (25-35); MEAN CORPUSCULAR HGB CONC 37 g/dL (31-37); MEAN CORPUSCULAR VOLUME 91 fL (79-100); MONO % 8 % (0-9); NEUT % 59 % (31-73); PLATELET COUNT 135 x10^3/uL (140-400); RED BLOOD COUNT 3.46 x10^6/uL (4.30-5.70); WHITE BLOOD COUNT 7.2 x10^3/uL (4.0-11.0)
[2016-11-10 04:14] LABS: ALBUMIN 2.5 g/dL (3.4-5.0); ALBUMIN/GLOBULIN RATIO 0.8 (1.0-1.7); CALCIUM 8.7 mg/dL (8.5-10.1); CREATININE 0.6 mg/dL (0.7-1.3); GFR 146.4; MAGNESIUM 1.3 mg/dL (1.8-2.4); TOTAL BILIRUBIN 0.5 mg/dL (0.2-1.0); TOTAL PROTEIN 5.7 g/dL (6.4-8.2)
[2016-11-10 04:45] LABS: POTASSIUM 2.8 mmol/L (3.5-5.1)
[2016-11-10] MEDS: INSULIN ASPART 300 UNITS/3 ML INSULN.PEN SQ SCH ×6 (05:19→17:02)
[2016-11-10] MEDS: POTASSIUM CHLORIDE 20MEQ 50 ML IV SCH ×4 (05:19→07:16)
[2016-11-10] MEDS ORDERED: IV DEXTROSE 5% 500 ML IV ONE (05:30)
[2016-11-10] MEDS ORDERED: IV DEXTROSE 5% 250 ML IV ONE ×2 (06:15)
--- NOTE | 2016-11-10 07:17 | PDOC ---
Infectious Disease Note Subjective Subjective Doing ok ROS ROS GEN: Denies fevers, chills, sweats HEENT: Denies blurred vision, sore throat but is dry CV: Denies chest pain RESP: Denies shortness of air, cough GI: Denies n/v/d NEURO: Denies confusion, dizziness MSK: Denies weakness, joint pain/swelling Vital Sign Vital Signs Vital Signs Date Time Temp Pulse Resp B/P (MAP) Pulse Ox O2 Delivery O2 Flow Rate FiO2 11/10/16 06:00 54 14 119/76 (90) 100 Room Air 11/10/16 04:00 98.7 98.7 11/09/16 16:00 3.0 Physical Exam PHYSICAL EXAM GENERAL: A thin male, NAD, coop HEENT: Pupils equally round, nonreactive to light. OC/Op - clear LUNGS: Clear to auscultation. HEART: Normal S1 and S2. ABDOMEN: Nondistended. Bowel sounds are present. Soft. No grimace or guarding to palpation. GENITOURINARY: He has a Jhaveri. EXTREMITIES: No gross edema or cyanosis. SKIN: Without rash. Small pustular, right medial thigh.- clean NEUROLOGIC: Alert and Oriented LINES: RIJ. Clean. Labs Lab Laboratory Tests Test 11/09/16 07:49 11/09/16 08:30 11/09/16 11:28 11/09/16 11:45 Glucose (Fingerstick) 149 mg/dL (70-99) 150 mg/dL (70-99) O2 Saturation 97 % (92-99) 98 % (92-99) Arterial Blood pH 7.47 (7.35-7.45) 7.43 (7.35-7.45) Arterial Blood pCO2 at Patient Temp 27 mmHg (35-46) 28 mmHg (35-46) Arterial Blood pO2 at Patient Temp 95 mmHg (75-108) 101 mmHg (75-108) Arterial Blood HCO3 19 mmol/L (21-28) 18 mmol/L (21-28) Arterial Blood Base Excess -4 mmol/L (-3-3) -5 mmol/L (-3-3) FiO2 35 35 Test 11/09/16 16:49 11/09/16 17:08 11/09/16 18:54 11/09/16 18:55 Glucose (Fingerstick) 36 mg/dL (70-99) 116 mg/dL (70-99) 71 mg/dL (70-99) Sodium Level 142 mmol/L (136-145) Potassium Level 2.8 mmol/L (3.5-5.1) Chloride Level 107 mmol/L (98-107) Carbon Dioxide Level 25 mmol/L (21-32) Anion Gap 10 (6-14) Blood Urea Nitrogen 7 mg/dL (8-26) Creatinine 0.6 mg/dL (0.7-1.3) Estimated GFR (Cockcroft-Gault) 146.4 BUN/Creatinine Ratio 12 (6-20) Glucose Level 69 mg/dL (70-99) Calcium Level 8.2 mg/dL (8.5-10.1) Total Bilirubin 0.5 mg/dL (0.2-1.0) Aspartate Amino Transf (AST/SGOT) 41 U/L (15-37) Alanine Aminotransferase (ALT/SGPT) 34 U/L (16-63) Alkaline Phosphatase 82 U/L (46-116) Total Protein 4.9 g/dL (6.4-8.2) Albumin 2.3 g/dL (3.4-5.0) Albumin/Globulin Ratio 0.9 (1.0-1.7) Test 11/09/16 21:06 11/09/16 23:42 11/10/16 00:27 11/10/16 03:30 Glucose (Fingerstick) 97 mg/dL (70-99) 62 mg/dL (70-99) 95 mg/dL (70-99) White Blood Count 7.2 x10^3/uL (4.0-11.0) Red Blood Count 3.46 x10^6/uL (4.30-5.70) Hemoglobin 11.5 g/dL (13.0-17.5) Hematocrit 31.4 % (39.0-53.0) Mean Corpuscular Volume 91 fL (79-100) Mean Corpuscular Hemoglobin 33 pg (25-35) Mean Corpuscular Hemoglobin Concent 37 g/dL (31-37) Red Cell Distribution Width 14.0 % (11.5-14.5) Platelet Count 135 x10^3/uL (140-400) Neutrophils (%) (Auto) 59 % (31-73) Lymphocytes (%) (Auto) 30 % (24-48) Monocytes (%) (Auto) 8 % (0-9) Eosinophils (%) (Auto) 2 % (0-3) Basophils (%) (Auto) 1 % (0-3) Neutrophils # (Auto) 4.3 x10^3uL (1.8-7.7) Lymphocytes # (Auto) 2.2 x10^3/uL (1.0-4.8) Monocytes # (Auto) 0.6 x10^3/uL (0.0-1.1) Eosinophils # (Auto) 0.1 x10^3/uL (0.0-0.7) Basophils # (Auto) 0.0 x10^3/uL (0.0-0.2) Sodium Level 140 mmol/L (136-145) Potassium Level 2.8 mmol/L (3.5-5.1) Chloride Level 105 mmol/L (98-107) Carbon Dioxide Level 27 mmol/L (21-32) Anion Gap 8 (6-14) Blood Urea Nitrogen 6 mg/dL (8-26) Creatinine 0.6 mg/dL (0.7-1.3) Estimated GFR (Cockcroft-Gault) 146.4 BUN/Creatinine Ratio 10 (6-20) Glucose Level 26 mg/dL (70-99) Calcium Level 8.7 mg/dL (8.5-10.1) Magnesium Level 1.3 mg/dL (1.8-2.4) Total Bilirubin 0.5 mg/dL (0.2-1.0) Aspartate Amino Transf (AST/SGOT) 45 U/L (15-37) Alanine Aminotransferase (ALT/SGPT) 33 U/L (16-63) Alkaline Phosphatase 89 U/L (46-116) Total Protein 5.7 g/dL (6.4-8.2) Albumin 2.5 g/dL (3.4-5.0) Albumin/Globulin Ratio 0.8 (1.0-1.7) Test 11/10/16 05:04 11/10/16 06:11 11/10/16 06:39 Glucose (Fingerstick) 111 mg/dL (70-99) 68 mg/dL (70-99) 108 mg/dL (70-99) Objective Assessment LLL pneumonia. Staph aureus in sputum - improving with levoflox Leukocytosis, improved Allergy amoxicillin & Augmentin. "Not a serious reaction" DKA, improved Acute encephalopathy Acute respiratory failure s/p intubation RAVEN, improved Alcoholism Polysubstance abuse. Plan Plan of Care Cont Levaquin for now to assist with potential atypicals. May change therapy / f/u cultures Monitor labs Supportive care Reviewed Previous records critically ill NIRALI PETIT MD November 10, 2016 07:17
[2016-11-10] MEDS: PANTOPRAZOLE IV PUSH 40 MG VIAL. IVP SCH (07:48)
[2016-11-10] MEDS: ENOXAPARIN 40 MG/0.4 ML SYRINGE. SQ SCH (07:48)
[2016-11-10] MEDS ORDERED: MAGNESIUM SULFATE 2GM 50 ML IV ONE (08:00)
--- NOTE | 2016-11-10 08:53 | PDOC ---
PROGRESS NOTES Chief Complaint Chief Complaint Acute respir failure ASSESSMENT AND PLAN: 1. LLL PNA: improving. on levaquin 2. Sepsis: remains tachycardic, but afeb, normalized WBC 3. DKA: off insulin gtt, gap closed 4. DM2: on levemir and humalog. ISS. very tight control; decrease levemir dose 48-> 35 5. Acute metabolic acidosis: resolved 6. Acute metabolic encephalopathy: comatose on presentation, requiring emergent intubation; extubated 11/09. resolved 7. Leukocytosis: resolved 8. RAVEN: resolved. 9. Hypokalemia: severe. replete IV/PO 10. Alcoholism: monitor, no W/D sx at this time 11. Tobaccoism: nicotine gum 12. Polysubstance abuse. 13. Prophylaxis: lovenox, PPI 14. Dispo: transfer to [facility] floor History of Present Illness History of Present Illness feels good, no c/o denies CP. no cough Vitals Vitals Vital Signs Date Time Temp Pulse Resp B/P (MAP) Pulse Ox O2 Delivery O2 Flow Rate FiO2 11/10/16 08:00 97.3 84 19 152/101 (118) 100 Room Air 97.3 11/09/16 16:00 3.0 Physical Exam General: Alert, Cooperative, No acute distress Heart: Regular rate, No murmurs Lungs: Clear Abdomen: Normal bowel sounds, Soft Extremities: No clubbing Skin: No rashes Labs LABS Laboratory Tests Test 11/09/16 11:28 11/09/16 11:45 11/09/16 16:49 11/09/16 17:08 Glucose (Fingerstick) 150 mg/dL (70-99) 36 mg/dL (70-99) 116 mg/dL (70-99) O2 Saturation 98 % (92-99) Arterial Blood pH 7.43 (7.35-7.45) Arterial Blood pCO2 at Patient Temp 28 mmHg (35-46) Arterial Blood pO2 at Patient Temp 101 mmHg (75-108) Arterial Blood HCO3 18 mmol/L (21-28) Arterial Blood Base Excess -5 mmol/L (-3-3) FiO2 35 Test 11/09/16 18:54 11/09/16 18:55 11/09/16 21:06 11/09/16 23:42 Glucose (Fingerstick) 71 mg/dL (70-99) 97 mg/dL (70-99) 62 mg/dL (70-99) Sodium Level 142 mmol/L (136-145) Potassium Level 2.8 mmol/L (3.5-5.1) Chloride Level 107 mmol/L (98-107) Carbon Dioxide Level 25 mmol/L (21-32) Anion Gap 10 (6-14) Blood Urea Nitrogen 7 mg/dL (8-26) Creatinine 0.6 mg/dL (0.7-1.3) Estimated GFR (Cockcroft-Gault) 146.4 BUN/Creatinine Ratio 12 (6-20) Glucose Level 69 mg/dL (70-99) Calcium Level 8.2 mg/dL (8.5-10.1) Total Bilirubin 0.5 mg/dL (0.2-1.0) Aspartate Amino Transf (AST/SGOT) 41 U/L (15-37) Alanine Aminotransferase (ALT/SGPT) 34 U/L (16-63) Alkaline Phosphatase 82 U/L (46-116) Total Protein 4.9 g/dL (6.4-8.2) Albumin 2.3 g/dL (3.4-5.0) Albumin/Globulin Ratio 0.9 (1.0-1.7) Test 11/10/16 00:27 11/10/16 03:30 11/10/16 05:04 11/10/16 06:11 Glucose (Fingerstick) 95 mg/dL (70-99) 111 mg/dL (70-99) 68 mg/dL (70-99) White Blood Count 7.2 x10^3/uL (4.0-11.0) Red Blood Count 3.46 x10^6/uL (4.30-5.70) Hemoglobin 11.5 g/dL (13.0-17.5) Hematocrit 31.4 % (39.0-53.0) Mean Corpuscular Volume 91 fL (79-100) Mean Corpuscular Hemoglobin 33 pg (25-35) Mean Corpuscular Hemoglobin Concent 37 g/dL (31-37) Red Cell Distribution Width 14.0 % (11.5-14.5) Platelet Count 135 x10^3/uL (140-400) Neutrophils (%) (Auto) 59 % (31-73) Lymphocytes (%) (Auto) 30 % (24-48) Monocytes (%) (Auto) 8 % (0-9) Eosinophils (%) (Auto) 2 % (0-3) Basophils (%) (Auto) 1 % (0-3) Neutrophils # (Auto) 4.3 x10^3uL (1.8-7.7) Lymphocytes # (Auto) 2.2 x10^3/uL (1.0-4.8) Monocytes # (Auto) 0.6 x10^3/uL (0.0-1.1) Eosinophils # (Auto) 0.1 x10^3/uL (0.0-0.7) Basophils # (Auto) 0.0 x10^3/uL (0.0-0.2) Sodium Level 140 mmol/L (136-145) Potassium Level 2.8 mmol/L (3.5-5.1) Chloride Level 105 mmol/L (98-107) Carbon Dioxide Level 27 mmol/L (21-32) Anion Gap 8 (6-14) Blood Urea Nitrogen 6 mg/dL (8-26) Creatinine 0.6 mg/dL (0.7-1.3) Estimated GFR (Cockcroft-Gault) 146.4 BUN/Creatinine Ratio 10 (6-20) Glucose Level 26 mg/dL (70-99) Calcium Level 8.7 mg/dL (8.5-10.1) Magnesium Level 1.3 mg/dL (1.8-2.4) Total Bilirubin 0.5 mg/dL (0.2-1.0) Aspartate Amino Transf (AST/SGOT) 45 U/L (15-37) Alanine Aminotransferase (ALT/SGPT) 33 U/L (16-63) Alkaline Phosphatase 89 U/L (46-116) Total Protein 5.7 g/dL (6.4-8.2) Albumin 2.5 g/dL (3.4-5.0) Albumin/Globulin Ratio 0.8 (1.0-1.7) Test 11/10/16 06:39 11/10/16 07:21 11/10/16 08:14 Glucose (Fingerstick) 108 mg/dL (70-99) 71 mg/dL (70-99) 58 mg/dL (70-99) LILIBETH DIAZ MD November 10, 2016 08:53
--- NOTE | 2016-11-10 10:20 | PDOC ---
PULMONARY PROGRESS NOTES Subjective awake extubated 11/09 doing well Vitals Vital Signs Date Time Temp Pulse Resp B/P (MAP) Pulse Ox O2 Delivery O2 Flow Rate FiO2 11/10/16 10:00 96 23 120/86 (97) 98 Room Air 11/10/16 08:00 97.3 97.3 11/09/16 16:00 3.0 General: Alert, No acute distress Lungs: Clear Cardiovascular: S1 Abdomen: Soft Neuro Exam: Alert Extremities: No Edema Skin: Warm Labs Laboratory Tests Test 11/08/16 11:38 11/08/16 13:51 11/08/16 16:33 11/08/16 17:17 Glucose (Fingerstick) 277 mg/dL (70-99) 137 mg/dL (70-99) 65 mg/dL (70-99) 117 mg/dL (70-99) Test 11/08/16 20:53 11/08/16 23:56 11/09/16 05:46 11/09/16 05:51 Glucose (Fingerstick) 248 mg/dL (70-99) 314 mg/dL (70-99) 204 mg/dL (70-99) White Blood Count 6.8 x10^3/uL (4.0-11.0) Red Blood Count 2.93 x10^6/uL (4.30-5.70) Hemoglobin 9.7 g/dL (13.0-17.5) Hematocrit 27.6 % (39.0-53.0) Mean Corpuscular Volume 94 fL (79-100) Mean Corpuscular Hemoglobin 33 pg (25-35) Mean Corpuscular Hemoglobin Concent 35 g/dL (31-37) Red Cell Distribution Width 14.0 % (11.5-14.5) Platelet Count 99 x10^3/uL (140-400) Neutrophils (%) (Auto) 73 % (31-73) Lymphocytes (%) (Auto) 20 % (24-48) Monocytes (%) (Auto) 7 % (0-9) Eosinophils (%) (Auto) 1 % (0-3) Basophils (%) (Auto) 0 % (0-3) Neutrophils # (Auto) 4.9 x10^3uL (1.8-7.7) Lymphocytes # (Auto) 1.4 x10^3/uL (1.0-4.8) Monocytes # (Auto) 0.5 x10^3/uL (0.0-1.1) Eosinophils # (Auto) 0.0 x10^3/uL (0.0-0.7) Basophils # (Auto) 0.0 x10^3/uL (0.0-0.2) Sodium Level 140 mmol/L (136-145) Potassium Level 2.2 mmol/L (3.5-5.1) Chloride Level 109 mmol/L (98-107) Carbon Dioxide Level 21 mmol/L (21-32) Anion Gap 10 (6-14) Blood Urea Nitrogen 13 mg/dL (8-26) Creatinine 0.7 mg/dL (0.7-1.3) Estimated GFR (Cockcroft-Gault) 122.5 Glucose Level 277 mg/dL (70-99) Calcium Level 8.0 mg/dL (8.5-10.1) Test 11/09/16 07:49 11/09/16 08:30 11/09/16 11:28 11/09/16 11:45 Glucose (Fingerstick) 149 mg/dL (70-99) 150 mg/dL (70-99) O2 Saturation 97 % (92-99) 98 % (92-99) Arterial Blood pH 7.47 (7.35-7.45) 7.43 (7.35-7.45) Arterial Blood pCO2 at Patient Temp 27 mmHg (35-46) 28 mmHg (35-46) Arterial Blood pO2 at Patient Temp 95 mmHg (75-108) 101 mmHg (75-108) Arterial Blood HCO3 19 mmol/L (21-28) 18 mmol/L (21-28) Arterial Blood Base Excess -4 mmol/L (-3-3) -5 mmol/L (-3-3) FiO2 35 35 Test 11/09/16 16:49 11/09/16 17:08 11/09/16 18:54 11/09/16 18:55 Glucose (Fingerstick) 36 mg/dL (70-99) 116 mg/dL (70-99) 71 mg/dL (70-99) Sodium Level 142 mmol/L (136-145) Potassium Level 2.8 mmol/L (3.5-5.1) Chloride Level 107 mmol/L (98-107) Carbon Dioxide Level 25 mmol/L (21-32) Anion Gap 10 (6-14) Blood Urea Nitrogen 7 mg/dL (8-26) Creatinine 0.6 mg/dL (0.7-1.3) Estimated GFR (Cockcroft-Gault) 146.4 BUN/Creatinine Ratio 12 (6-20) Glucose Level 69 mg/dL (70-99) Calcium Level 8.2 mg/dL (8.5-10.1) Total Bilirubin 0.5 mg/dL (0.2-1.0) Aspartate Amino Transf (AST/SGOT) 41 U/L (15-37) Alanine Aminotransferase (ALT/SGPT) 34 U/L (16-63) Alkaline Phosphatase 82 U/L (46-116) Total Protein 4.9 g/dL (6.4-8.2) Albumin 2.3 g/dL (3.4-5.0) Albumin/Globulin Ratio 0.9 (1.0-1.7) Test 11/09/16 21:06 11/09/16 23:42 11/10/16 00:27 11/10/16 03:30 Glucose (Fingerstick) 97 mg/dL (70-99) 62 mg/dL (70-99) 95 mg/dL (70-99) White Blood Count 7.2 x10^3/uL (4.0-11.0) Red Blood Count 3.46 x10^6/uL (4.30-5.70) Hemoglobin 11.5 g/dL (13.0-17.5) Hematocrit 31.4 % (39.0-53.0) Mean Corpuscular Volume 91 fL (79-100) Mean Corpuscular Hemoglobin 33 pg (25-35) Mean Corpuscular Hemoglobin Concent 37 g/dL (31-37) Red Cell Distribution Width 14.0 % (11.5-14.5) Platelet Count 135 x10^3/uL (140-400) Neutrophils (%) (Auto) 59 % (31-73) Lymphocytes (%) (Auto) 30 % (24-48) Monocytes (%) (Auto) 8 % (0-9) Eosinophils (%) (Auto) 2 % (0-3) Basophils (%) (Auto) 1 % (0-3) Neutrophils # (Auto) 4.3 x10^3uL (1.8-7.7) Lymphocytes # (Auto) 2.2 x10^3/uL (1.0-4.8) Monocytes # (Auto) 0.6 x10^3/uL (0.0-1.1) Eosinophils # (Auto) 0.1 x10^3/uL (0.0-0.7) Basophils # (Auto) 0.0 x10^3/uL (0.0-0.2) Sodium Level 140 mmol/L (136-145) Potassium Level 2.8 mmol/L (3.5-5.1) Chloride Level 105 mmol/L (98-107) Carbon Dioxide Level 27 mmol/L (21-32) Anion Gap 8 (6-14) Blood Urea Nitrogen 6 mg/dL (8-26) Creatinine 0.6 mg/dL (0.7-1.3) Estimated GFR (Cockcroft-Gault) 146.4 BUN/Creatinine Ratio 10 (6-20) Glucose Level 26 mg/dL (70-99) Calcium Level 8.7 mg/dL (8.5-10.1) Magnesium Level 1.3 mg/dL (1.8-2.4) Total Bilirubin 0.5 mg/dL (0.2-1.0) Aspartate Amino Transf (AST/SGOT) 45 U/L (15-37) Alanine Aminotransferase (ALT/SGPT) 33 U/L (16-63) Alkaline Phosphatase 89 U/L (46-116) Total Protein 5.7 g/dL (6.4-8.2) Albumin 2.5 g/dL (3.4-5.0) Albumin/Globulin Ratio 0.8 (1.0-1.7) Test 11/10/16 05:04 11/10/16 06:11 11/10/16 06:39 11/10/16 07:21 Glucose (Fingerstick) 111 mg/dL (70-99) 68 mg/dL (70-99) 108 mg/dL (70-99) 71 mg/dL (70-99) Test 11/10/16 08:14 11/10/16 08:52 Glucose (Fingerstick) 58 mg/dL (70-99) 127 mg/dL (70-99) Laboratory Tests Test 11/09/16 11:28 11/09/16 11:45 11/09/16 16:49 11/09/16 17:08 Glucose (Fingerstick) 150 mg/dL (70-99) 36 mg/dL (70-99) 116 mg/dL (70-99) O2 Saturation 98 % (92-99) Arterial Blood pH 7.43 (7.35-7.45) Arterial Blood pCO2 at Patient Temp 28 mmHg (35-46) Arterial Blood pO2 at Patient Temp 101 mmHg (75-108) Arterial Blood HCO3 18 mmol/L (21-28) Arterial Blood Base Excess -5 mmol/L (-3-3) FiO2 35 Test 11/09/16 18:54 11/09/16 18:55 11/09/16 21:06 11/09/16 23:42 Glucose (Fingerstick) 71 mg/dL (70-99) 97 mg/dL (70-99) 62 mg/dL (70-99) Sodium Level 142 mmol/L (136-145) Potassium Level 2.8 mmol/L (3.5-5.1) Chloride Level 107 mmol/L (98-107) Carbon Dioxide Level 25 mmol/L (21-32) Anion Gap 10 (6-14) Blood Urea Nitrogen 7 mg/dL (8-26) Creatinine 0.6 mg/dL (0.7-1.3) Estimated GFR (Cockcroft-Gault) 146.4 BUN/Creatinine Ratio 12 (6-20) Glucose Level 69 mg/dL (70-99) Calcium Level 8.2 mg/dL (8.5-10.1) Total Bilirubin 0.5 mg/dL (0.2-1.0) Aspartate Amino Transf (AST/SGOT) 41 U/L (15-37) Alanine Aminotransferase (ALT/SGPT) 34 U/L (16-63) Alkaline Phosphatase 82 U/L (46-116) Total Protein 4.9 g/dL (6.4-8.2) Albumin 2.3 g/dL (3.4-5.0) Albumin/Globulin Ratio 0.9 (1.0-1.7) Test 11/10/16 00:27 11/10/16 03:30 11/10/16 05:04 11/10/16 06:11 Glucose (Fingerstick) 95 mg/dL (70-99) 111 mg/dL (70-99) 68 mg/dL (70-99) White Blood Count 7.2 x10^3/uL (4.0-11.0) Red Blood Count 3.46 x10^6/uL (4.30-5.70) Hemoglobin 11.5 g/dL (13.0-17.5) Hematocrit 31.4 % (39.0-53.0) Mean Corpuscular Volume 91 fL (79-100) Mean Corpuscular Hemoglobin 33 pg (25-35) Mean Corpuscular Hemoglobin Concent 37 g/dL (31-37) Red Cell Distribution Width 14.0 % (11.5-14.5) Platelet Count 135 x10^3/uL (140-400) Neutrophils (%) (Auto) 59 % (31-73) Lymphocytes (%) (Auto) 30 % (24-48) Monocytes (%) (Auto) 8 % (0-9) Eosinophils (%) (Auto) 2 % (0-3) Basophils (%) (Auto) 1 % (0-3) Neutrophils # (Auto) 4.3 x10^3uL (1.8-7.7) Lymphocytes # (Auto) 2.2 x10^3/uL (1.0-4.8) Monocytes # (Auto) 0.6 x10^3/uL (0.0-1.1) Eosinophils # (Auto) 0.1 x10^3/uL (0.0-0.7) Basophils # (Auto) 0.0 x10^3/uL (0.0-0.2) Sodium Level 140 mmol/L (136-145) Potassium Level 2.8 mmol/L (3.5-5.1) Chloride Level 105 mmol/L (98-107) Carbon Dioxide Level 27 mmol/L (21-32) Anion Gap 8 (6-14) Blood Urea Nitrogen 6 mg/dL (8-26) Creatinine 0.6 mg/dL (0.7-1.3) Estimated GFR (Cockcroft-Gault) 146.4 BUN/Creatinine Ratio 10 (6-20) Glucose Level 26 mg/dL (70-99) Calcium Level 8.7 mg/dL (8.5-10.1) Magnesium Level 1.3 mg/dL (1.8-2.4) Total Bilirubin 0.5 mg/dL (0.2-1.0) Aspartate Amino Transf (AST/SGOT) 45 U/L (15-37) Alanine Aminotransferase (ALT/SGPT) 33 U/L (16-63) Alkaline Phosphatase 89 U/L (46-116) Total Protein 5.7 g/dL (6.4-8.2) Albumin 2.5 g/dL (3.4-5.0) Albumin/Globulin Ratio 0.8 (1.0-1.7) Test 11/10/16 06:39 11/10/16 07:21 11/10/16 08:14 11/10/16 08:52 Glucose (Fingerstick) 108 mg/dL (70-99) 71 mg/dL (70-99) 58 mg/dL (70-99) 127 mg/dL (70-99) Medications Active Scripts Medications Dose Route/Sig Max Daily Dose Days Date Category Klor-Con M20 (Potassium Chloride) 20 Meq Tab.er.prt 20 Meq PO BIDWMEALS 04/08/16 Rx Apidra Solostar (Insulin Glulisine) 100 Unit/1 Ml Insuln.pen 17 Unit SQ TIDACHC 04/06/16 Reported Lantus Solostar (Insulin Glargine,Hum.rec.anlog) 100 Unit/1 Ml Insuln.pen 48 Unit SQ QHS 04/27/15 Reported Spironolactone 25 Mg Tablet 25 Mg PO DAILY 04/27/15 Reported Gabapentin 400 Mg Capsule 400 Mg PO DAILY 04/27/15 Reported Ramipril 2.5 Mg Capsule 2.5 Mg PO DAILY 04/27/15 Reported Levothyroxine Sodium 75 Mcg Tablet 75 Mcg PO DAILYAC 04/27/15 Reported Fenofibrate 160 Mg Tablet 160 Mg PO DAILY 04/27/15 Reported Lisinopril 20 Mg Tablet 20 Mg PO DAILY 04/27/15 Reported Furosemide 20 Mg Tablet 20 Mg PO QODAY 04/27/15 Reported Hydrochlorothiazide Tablet (Hydrochlorothiazide) 25 Mg Tablet 25 Mg PO DAILY 04/27/15 Reported Atorvastatin Calcium 10 Mg Tablet 10 Mg PO DAILY 04/27/15 Reported Impression . 1. Acute respiratory failure, multifactorial (DKA, encephalopathy, Meth), extubated 11/09 2. Acute metabolic encephalopathy. improved 3. Abnormal chest x-ray.increase LLL infiltrate, on antibiotic 4. Pneumonia.LLL 5. Diabetic ketoacidosis. resolved 6. Severe metabolic acidosis, improved 7. Leukocytosis.improved 8. Diabetes mellitus. 9. Legally blind. 10. History of alcohol abuse. 11. low Mg and K Plan . 1. Titrate FiO2 to keep O2 saturation to 94%. 2. PO nutrition 3. antibiotic. 4. Sputum culture. 5. Lovenox for DVT prophylaxis. 7. replace K, Mg 9. Elevate head of bed. 10. transfer to floor ALISA PEÑA MD November 10, 2016 10:20
--- NOTE | 2016-11-10 11:50 | PDOC ---
Subjective: Subjective: No GI complaints. Objective: Objective: Per RN - no GI concerns. Tolerating PO. BM yesterday w/ blood. No n/v. Vital Signs: Vital Signs Date Time Temp Pulse Resp B/P (MAP) Pulse Ox O2 Delivery O2 Flow Rate FiO2 11/10/16 11:00 81 23 115/78 (90) 100 Room Air 11/10/16 08:00 97.3 97.3 11/09/16 16:00 3.0 Labs: Laboratory Tests Test 11/09/16 16:49 11/09/16 17:08 11/09/16 18:54 11/09/16 18:55 Glucose (Fingerstick) 36 mg/dL 116 mg/dL 71 mg/dL Sodium Level 142 mmol/L Potassium Level 2.8 mmol/L Chloride Level 107 mmol/L Carbon Dioxide Level 25 mmol/L Anion Gap 10 Blood Urea Nitrogen 7 mg/dL Creatinine 0.6 mg/dL Estimated GFR (Cockcroft-Gault) 146.4 BUN/Creatinine Ratio 12 Glucose Level 69 mg/dL Calcium Level 8.2 mg/dL Total Bilirubin 0.5 mg/dL Aspartate Amino Transf (AST/SGOT) 41 U/L Alanine Aminotransferase (ALT/SGPT) 34 U/L Alkaline Phosphatase 82 U/L Total Protein 4.9 g/dL Albumin 2.3 g/dL Albumin/Globulin Ratio 0.9 Test 11/09/16 21:06 11/09/16 23:42 11/10/16 00:27 11/10/16 03:30 Glucose (Fingerstick) 97 mg/dL 62 mg/dL 95 mg/dL White Blood Count 7.2 x10^3/uL Red Blood Count 3.46 x10^6/uL Hemoglobin 11.5 g/dL Hematocrit 31.4 % Mean Corpuscular Volume 91 fL Mean Corpuscular Hemoglobin 33 pg Mean Corpuscular Hemoglobin Concent 37 g/dL Red Cell Distribution Width 14.0 % Platelet Count 135 x10^3/uL Neutrophils (%) (Auto) 59 % Lymphocytes (%) (Auto) 30 % Monocytes (%) (Auto) 8 % Eosinophils (%) (Auto) 2 % Basophils (%) (Auto) 1 % Neutrophils # (Auto) 4.3 x10^3uL Lymphocytes # (Auto) 2.2 x10^3/uL Monocytes # (Auto) 0.6 x10^3/uL Eosinophils # (Auto) 0.1 x10^3/uL Basophils # (Auto) 0.0 x10^3/uL Sodium Level 140 mmol/L Potassium Level 2.8 mmol/L Chloride Level 105 mmol/L Carbon Dioxide Level 27 mmol/L Anion Gap 8 Blood Urea Nitrogen 6 mg/dL Creatinine 0.6 mg/dL Estimated GFR (Cockcroft-Gault) 146.4 BUN/Creatinine Ratio 10 Glucose Level 26 mg/dL Calcium Level 8.7 mg/dL Magnesium Level 1.3 mg/dL Total Bilirubin 0.5 mg/dL Aspartate Amino Transf (AST/SGOT) 45 U/L Alanine Aminotransferase (ALT/SGPT) 33 U/L Alkaline Phosphatase 89 U/L Total Protein 5.7 g/dL Albumin 2.5 g/dL Albumin/Globulin Ratio 0.8 Test 11/10/16 05:04 11/10/16 06:11 11/10/16 06:39 11/10/16 07:21 Glucose (Fingerstick) 111 mg/dL 68 mg/dL 108 mg/dL 71 mg/dL Test 11/10/16 08:14 11/10/16 08:52 Glucose (Fingerstick) 58 mg/dL 127 mg/dL PE: GEN: NAD LUNGS: CTAB HEART: RRR ABD: S/ND/NT NEURO/PSYCH: A & O A/P: Coffee-ground emesis - no recurrence -on PPI -Hgb improving -admitted w/ DKA -resp failure now extubated -tolerating PO Substance abuse -- Improved. Continue PPI - change to PO. BART PARKS November 10, 2016 11:50
[2016-11-10 11:51] LABS: ALBUMIN 2.3 g/dL (3.4-5.0); ALBUMIN/GLOBULIN RATIO 0.9 (1.0-1.7); CALCIUM 8.1 mg/dL (8.5-10.1); CREATININE 0.7 mg/dL (0.7-1.3); GFR 122.5; MAGNESIUM 1.9 mg/dL (1.8-2.4); POTASSIUM 4.3 mmol/L (3.5-5.1); TOTAL BILIRUBIN 0.3 mg/dL (0.2-1.0)
[2016-11-10] MEDS: NICOTINE 14MG PATCH. TD SCH (17:02)
[2016-11-10] MEDS: MORPHINE SULFATE 2 MG/ML DISP.SYRIN. IV PRN (20:42)
[2016-11-10] MEDS ORDERED: INSULIN DETEMIR 300 UNITS/3 ML INSULN.PEN. SQ SCH (21:00)
[2016-11-11] MEDS: INSULIN ASPART 300 UNITS/3 ML INSULN.PEN SQ SCH ×7 (00:45→17:21)
[2016-11-11 03:00] VITALS: BP 116/88
[2016-11-11 04:10] LABS: BASO % 1 % (0-3); EOS % 2 % (0-3); HEMATOCRIT 32.1 % (39.0-53.0); HEMOGLOBIN 11.5 g/dL (13.0-17.5); LYMPH % 37 % (24-48); MEAN CORPUSCULAR HEMOGLOBIN 33 pg (25-35); MEAN CORPUSCULAR HGB CONC 36 g/dL (31-37); MEAN CORPUSCULAR VOLUME 91 fL (79-100); MONO % 10 % (0-9); NEUT % 51 % (31-73); PLATELET COUNT 128 x10^3/uL (140-400); RED BLOOD COUNT 3.51 x10^6/uL (4.30-5.70); RED CELL DISTRIBUTION WIDTH 13.7 % (11.5-14.5); WHITE BLOOD COUNT 5.5 x10^3/uL (4.0-11.0)
[2016-11-11 05:48] LABS: CREATININE 0.7 mg/dL (0.7-1.3); GFR 122.5; POTASSIUM 3.5 mmol/L (3.5-5.1)
[2016-11-11 07:00] VITALS: BP 134/92
[2016-11-11] MEDS: PANTOPRAZOLE 40 MG TABLET.DR. PO SCH (07:30)
[2016-11-11] MEDS: ENOXAPARIN 40 MG/0.4 ML SYRINGE. SQ SCH (08:27)
[2016-11-11] MEDS: NICOTINE 14MG PATCH. TD SCH (08:28)
--- NOTE | 2016-11-11 09:31 | PDOC ---
Infectious Disease Note Subjective Subjective Doing ok ROS ROS GEN: Denies fevers, chills, sweats HEENT: Denies blurred vision, sore throat CV: Denies chest pain RESP: Denies shortness of air, cough GI: Denies n/v/d NEURO: Denies confusion, dizziness MSK: Denies weakness, joint pain/swelling Vital Sign Vital Signs Vital Signs Date Time Temp Pulse Resp B/P (MAP) Pulse Ox O2 Delivery O2 Flow Rate FiO2 11/11/16 07:00 98.1 92 19 134/92 (106) 96 Room Air 98.1 Physical Exam PHYSICAL EXAM GENERAL: NAD, Alert HEENT: PERRL, OC/OP - clear NECK: Supple, no JVD, no LN LUNGS: Clear HEART: S1S2, no gallop, no murmur ABD: Soft, NT, no organomegaly, no rebound EXT: No edema, no cyanosis ACCOUNTS RECEIVABLE COORDINATOR: Alert, oriented x 3, no focal neurologic deficit SKIN: No rash IV: RIJ Labs Lab Laboratory Tests Test 11/10/16 11:20 11/10/16 16:15 11/10/16 21:23 11/11/16 00:43 Sodium Level 131 mmol/L (136-145) Potassium Level 4.3 mmol/L (3.5-5.1) Chloride Level 98 mmol/L (98-107) Carbon Dioxide Level 27 mmol/L (21-32) Anion Gap 6 (6-14) Blood Urea Nitrogen 6 mg/dL (8-26) Creatinine 0.7 mg/dL (0.7-1.3) Estimated GFR (Cockcroft-Gault) 122.5 BUN/Creatinine Ratio 9 (6-20) Glucose Level 251 mg/dL (70-99) Calcium Level 8.1 mg/dL (8.5-10.1) Magnesium Level 1.9 mg/dL (1.8-2.4) Total Bilirubin 0.3 mg/dL (0.2-1.0) Aspartate Amino Transf (AST/SGOT) 46 U/L (15-37) Alanine Aminotransferase (ALT/SGPT) 32 U/L (16-63) Alkaline Phosphatase 87 U/L (46-116) Total Protein 5.0 g/dL (6.4-8.2) Albumin 2.3 g/dL (3.4-5.0) Albumin/Globulin Ratio 0.9 (1.0-1.7) Glucose (Fingerstick) 185 mg/dL (70-99) 216 mg/dL (70-99) 182 mg/dL (70-99) Test 11/11/16 04:00 11/11/16 06:45 11/11/16 07:59 White Blood Count 5.5 x10^3/uL (4.0-11.0) Red Blood Count 3.51 x10^6/uL (4.30-5.70) Hemoglobin 11.5 g/dL (13.0-17.5) Hematocrit 32.1 % (39.0-53.0) Mean Corpuscular Volume 91 fL (79-100) Mean Corpuscular Hemoglobin 33 pg (25-35) Mean Corpuscular Hemoglobin Concent 36 g/dL (31-37) Red Cell Distribution Width 13.7 % (11.5-14.5) Platelet Count 128 x10^3/uL (140-400) Neutrophils (%) (Auto) 51 % (31-73) Lymphocytes (%) (Auto) 37 % (24-48) Monocytes (%) (Auto) 10 % (0-9) Eosinophils (%) (Auto) 2 % (0-3) Basophils (%) (Auto) 1 % (0-3) Neutrophils # (Auto) 2.8 x10^3uL (1.8-7.7) Lymphocytes # (Auto) 2.0 x10^3/uL (1.0-4.8) Monocytes # (Auto) 0.5 x10^3/uL (0.0-1.1) Eosinophils # (Auto) 0.1 x10^3/uL (0.0-0.7) Basophils # (Auto) 0.0 x10^3/uL (0.0-0.2) Sodium Level 135 mmol/L (136-145) Potassium Level 3.5 mmol/L (3.5-5.1) Chloride Level 100 mmol/L (98-107) Carbon Dioxide Level 29 mmol/L (21-32) Anion Gap 6 (6-14) Blood Urea Nitrogen 7 mg/dL (8-26) Creatinine 0.7 mg/dL (0.7-1.3) Estimated GFR (Cockcroft-Gault) 122.5 Glucose Level 37 mg/dL (70-99) Calcium Level 9.0 mg/dL (8.5-10.1) Glucose (Fingerstick) 153 mg/dL (70-99) 89 mg/dL (70-99) Objective Assessment LLL pneumonia. MSSA in sputum 11/08 - improving with levoflox Leukocytosis, improved Allergy amoxicillin & Augmentin. "Not a serious reaction" DKA, improved Acute encephalopathy - improved Acute respiratory failure s/p intubation RAVEN, improved Alcoholism Polysubstance abuse. Plan Plan of Care Discont Levaquin Change to Keflex ? D/c IJ Monitor labs Supportive care NIRALI PETIT MD November 11, 2016 09:31
[2016-11-11] MEDS: CEPHALEXIN 250 MG CAPSULE. PO SCH ×4 (09:53→21:44)
[2016-11-11 11:00] VITALS: BP 145/86
--- NOTE | 2016-11-11 11:59 | PDOC ---
PROGRESS NOTES Chief Complaint Chief Complaint Acute respir failure ASSESSMENT AND PLAN: 1. LLL PNA: improving. on Keflex 2. Sepsis: improving 3. DKA: off insulin gtt, gap closed 4. DM2: on levemir and humalog. ISS. very tight control; decrease Levemir dose 30 due to hypoglycemia 5. Acute metabolic acidosis: resolved 6. Acute metabolic encephalopathy: comatose on presentation, requiring emergent intubation; extubated 11/09. resolved 7. Leukocytosis: resolved 8. RAVEN: resolved. 9. Hypokalemia: severe. replete IV/PO 10. Alcoholism: monitor, no W/D sx at this time 11. Tobaccoism: nicotine gum 12. Polysubstance abuse. 13. Prophylaxis: lovenox, PPI 14. Dispo: transfer to [facility] floor History of Present Illness History of Present Illness feels good, no c/o denies CP. no cough Vitals Vitals Vital Signs Date Time Temp Pulse Resp B/P (MAP) Pulse Ox O2 Delivery O2 Flow Rate FiO2 11/11/16 11:00 98.1 96 20 145/86 (105) 95 Room Air 98.1 Physical Exam General: Alert, Cooperative, No acute distress Heart: Regular rate, No murmurs Lungs: Clear Abdomen: Normal bowel sounds, Soft Extremities: No clubbing Skin: No rashes Labs LABS Laboratory Tests Test 11/10/16 16:15 11/10/16 21:23 11/11/16 00:43 11/11/16 04:00 Glucose (Fingerstick) 185 mg/dL (70-99) 216 mg/dL (70-99) 182 mg/dL (70-99) White Blood Count 5.5 x10^3/uL (4.0-11.0) Red Blood Count 3.51 x10^6/uL (4.30-5.70) Hemoglobin 11.5 g/dL (13.0-17.5) Hematocrit 32.1 % (39.0-53.0) Mean Corpuscular Volume 91 fL (79-100) Mean Corpuscular Hemoglobin 33 pg (25-35) Mean Corpuscular Hemoglobin Concent 36 g/dL (31-37) Red Cell Distribution Width 13.7 % (11.5-14.5) Platelet Count 128 x10^3/uL (140-400) Neutrophils (%) (Auto) 51 % (31-73) Lymphocytes (%) (Auto) 37 % (24-48) Monocytes (%) (Auto) 10 % (0-9) Eosinophils (%) (Auto) 2 % (0-3) Basophils (%) (Auto) 1 % (0-3) Neutrophils # (Auto) 2.8 x10^3uL (1.8-7.7) Lymphocytes # (Auto) 2.0 x10^3/uL (1.0-4.8) Monocytes # (Auto) 0.5 x10^3/uL (0.0-1.1) Eosinophils # (Auto) 0.1 x10^3/uL (0.0-0.7) Basophils # (Auto) 0.0 x10^3/uL (0.0-0.2) Sodium Level 135 mmol/L (136-145) Potassium Level 3.5 mmol/L (3.5-5.1) Chloride Level 100 mmol/L (98-107) Carbon Dioxide Level 29 mmol/L (21-32) Anion Gap 6 (6-14) Blood Urea Nitrogen 7 mg/dL (8-26) Creatinine 0.7 mg/dL (0.7-1.3) Estimated GFR (Cockcroft-Gault) 122.5 Glucose Level 37 mg/dL (70-99) Calcium Level 9.0 mg/dL (8.5-10.1) Test 11/11/16 06:45 11/11/16 07:59 11/11/16 11:29 Glucose (Fingerstick) 153 mg/dL (70-99) 89 mg/dL (70-99) 179 mg/dL (70-99) Assessment and Plan Assessmemt and Plan Problems Medical Problems: (1) Acute metabolic encephalopathy Status: Acute (2) Acute renal failure Status: Acute (3) Community acquired bacterial pneumonia Status: Acute (4) Diabetic ketoacidosis Status: Acute Problems: Comment Review of Relevant I have reviewed the following items karol (where applicable) has been applied. Labs Laboratory Tests Test 11/09/16 16:49 11/09/16 17:08 11/09/16 18:54 11/09/16 18:55 Glucose (Fingerstick) 36 mg/dL (70-99) 116 mg/dL (70-99) 71 mg/dL (70-99) Sodium Level 142 mmol/L (136-145) Potassium Level 2.8 mmol/L (3.5-5.1) Chloride Level 107 mmol/L (98-107) Carbon Dioxide Level 25 mmol/L (21-32) Anion Gap 10 (6-14) Blood Urea Nitrogen 7 mg/dL (8-26) Creatinine 0.6 mg/dL (0.7-1.3) Estimated GFR (Cockcroft-Gault) 146.4 BUN/Creatinine Ratio 12 (6-20) Glucose Level 69 mg/dL (70-99) Calcium Level 8.2 mg/dL (8.5-10.1) Total Bilirubin 0.5 mg/dL (0.2-1.0) Aspartate Amino Transf (AST/SGOT) 41 U/L (15-37) Alanine Aminotransferase (ALT/SGPT) 34 U/L (16-63) Alkaline Phosphatase 82 U/L (46-116) Total Protein 4.9 g/dL (6.4-8.2) Albumin 2.3 g/dL (3.4-5.0) Albumin/Globulin Ratio 0.9 (1.0-1.7) Test 11/09/16 21:06 11/09/16 23:42 11/10/16 00:27 11/10/16 03:30 Glucose (Fingerstick) 97 mg/dL (70-99) 62 mg/dL (70-99) 95 mg/dL (70-99) White Blood Count 7.2 x10^3/uL (4.0-11.0) Red Blood Count 3.46 x10^6/uL (4.30-5.70) Hemoglobin 11.5 g/dL (13.0-17.5) Hematocrit 31.4 % (39.0-53.0) Mean Corpuscular Volume 91 fL (79-100) Mean Corpuscular Hemoglobin 33 pg (25-35) Mean Corpuscular Hemoglobin Concent 37 g/dL (31-37) Red Cell Distribution Width 14.0 % (11.5-14.5) Platelet Count 135 x10^3/uL (140-400) Neutrophils (%) (Auto) 59 % (31-73) Lymphocytes (%) (Auto) 30 % (24-48) Monocytes (%) (Auto) 8 % (0-9) Eosinophils (%) (Auto) 2 % (0-3) Basophils (%) (Auto) 1 % (0-3) Neutrophils # (Auto) 4.3 x10^3uL (1.8-7.7) Lymphocytes # (Auto) 2.2 x10^3/uL (1.0-4.8) Monocytes # (Auto) 0.6 x10^3/uL (0.0-1.1) Eosinophils # (Auto) 0.1 x10^3/uL (0.0-0.7) Basophils # (Auto) 0.0 x10^3/uL (0.0-0.2) Sodium Level 140 mmol/L (136-145) Potassium Level 2.8 mmol/L (3.5-5.1) Chloride Level 105 mmol/L (98-107) Carbon Dioxide Level 27 mmol/L (21-32) Anion Gap 8 (6-14) Blood Urea Nitrogen 6 mg/dL (8-26) Creatinine 0.6 mg/dL (0.7-1.3) Estimated GFR (Cockcroft-Gault) 146.4 BUN/Creatinine Ratio 10 (6-20) Glucose Level 26 mg/dL (70-99) Calcium Level 8.7 mg/dL (8.5-10.1) Magnesium Level 1.3 mg/dL (1.8-2.4) Total Bilirubin 0.5 mg/dL (0.2-1.0) Aspartate Amino Transf (AST/SGOT) 45 U/L (15-37) Alanine Aminotransferase (ALT/SGPT) 33 U/L (16-63) Alkaline Phosphatase 89 U/L (46-116) Total Protein 5.7 g/dL (6.4-8.2) Albumin 2.5 g/dL (3.4-5.0) Albumin/Globulin Ratio 0.8 (1.0-1.7) Test 11/10/16 05:04 11/10/16 06:11 11/10/16 06:39 11/10/16 07:21 Glucose (Fingerstick) 111 mg/dL (70-99) 68 mg/dL (70-99) 108 mg/dL (70-99) 71 mg/dL (70-99) Test 11/10/16 08:14 11/10/16 08:52 11/10/16 11:20 11/10/16 16:15 Glucose (Fingerstick) 58 mg/dL (70-99) 127 mg/dL (70-99) 185 mg/dL (70-99) Sodium Level 131 mmol/L (136-145) Potassium Level 4.3 mmol/L (3.5-5.1) Chloride Level 98 mmol/L (98-107) Carbon Dioxide Level 27 mmol/L (21-32) Anion Gap 6 (6-14) Blood Urea Nitrogen 6 mg/dL (8-26) Creatinine 0.7 mg/dL (0.7-1.3) Estimated GFR (Cockcroft-Gault) 122.5 BUN/Creatinine Ratio 9 (6-20) Glucose Level 251 mg/dL (70-99) Calcium Level 8.1 mg/dL (8.5-10.1) Magnesium Level 1.9 mg/dL (1.8-2.4) Total Bilirubin 0.3 mg/dL (0.2-1.0) Aspartate Amino Transf (AST/SGOT) 46 U/L (15-37) Alanine Aminotransferase (ALT/SGPT) 32 U/L (16-63) Alkaline Phosphatase 87 U/L (46-116) Total Protein 5.0 g/dL (6.4-8.2) Albumin 2.3 g/dL (3.4-5.0) Albumin/Globulin Ratio 0.9 (1.0-1.7) Test 11/10/16 21:23 11/11/16 00:43 11/11/16 04:00 11/11/16 06:45 Glucose (Fingerstick) 216 mg/dL (70-99) 182 mg/dL (70-99) 153 mg/dL (70-99) White Blood Count 5.5 x10^3/uL (4.0-11.0) Red Blood Count 3.51 x10^6/uL (4.30-5.70) Hemoglobin 11.5 g/dL (13.0-17.5) Hematocrit 32.1 % (39.0-53.0) Mean Corpuscular Volume 91 fL (79-100) Mean Corpuscular Hemoglobin 33 pg (25-35) Mean Corpuscular Hemoglobin Concent 36 g/dL (31-37) Red Cell Distribution Width 13.7 % (11.5-14.5) Platelet Count 128 x10^3/uL (140-400) Neutrophils (%) (Auto) 51 % (31-73) Lymphocytes (%) (Auto) 37 % (24-48) Monocytes (%) (Auto) 10 % (0-9) Eosinophils (%) (Auto) 2 % (0-3) Basophils (%) (Auto) 1 % (0-3) Neutrophils # (Auto) 2.8 x10^3uL (1.8-7.7) Lymphocytes # (Auto) 2.0 x10^3/uL (1.0-4.8) Monocytes # (Auto) 0.5 x10^3/uL (0.0-1.1) Eosinophils # (Auto) 0.1 x10^3/uL (0.0-0.7) Basophils # (Auto) 0.0 x10^3/uL (0.0-0.2) Sodium Level 135 mmol/L (136-145) Potassium Level 3.5 mmol/L (3.5-5.1) Chloride Level 100 mmol/L (98-107) Carbon Dioxide Level 29 mmol/L (21-32) Anion Gap 6 (6-14) Blood Urea Nitrogen 7 mg/dL (8-26) Creatinine 0.7 mg/dL (0.7-1.3) Estimated GFR (Cockcroft-Gault) 122.5 Glucose Level 37 mg/dL (70-99) Calcium Level 9.0 mg/dL (8.5-10.1) Test 11/11/16 07:59 11/11/16 11:29 Glucose (Fingerstick) 89 mg/dL (70-99) 179 mg/dL (70-99) Laboratory Tests Test 11/10/16 16:15 11/10/16 21:23 11/11/16 00:43 11/11/16 04:00 Glucose (Fingerstick) 185 mg/dL (70-99) 216 mg/dL (70-99) 182 mg/dL (70-99) White Blood Count 5.5 x10^3/uL (4.0-11.0) Red Blood Count 3.51 x10^6/uL (4.30-5.70) Hemoglobin 11.5 g/dL (13.0-17.5) Hematocrit 32.1 % (39.0-53.0) Mean Corpuscular Volume 91 fL (79-100) Mean Corpuscular Hemoglobin 33 pg (25-35) Mean Corpuscular Hemoglobin Concent 36 g/dL (31-37) Red Cell Distribution Width 13.7 % (11.5-14.5) Platelet Count 128 x10^3/uL (140-400) Neutrophils (%) (Auto) 51 % (31-73) Lymphocytes (%) (Auto) 37 % (24-48) Monocytes (%) (Auto) 10 % (0-9) Eosinophils (%) (Auto) 2 % (0-3) Basophils (%) (Auto) 1 % (0-3) Neutrophils # (Auto) 2.8 x10^3uL (1.8-7.7) Lymphocytes # (Auto) 2.0 x10^3/uL (1.0-4.8) Monocytes # (Auto) 0.5 x10^3/uL (0.0-1.1) Eosinophils # (Auto) 0.1 x10^3/uL (0.0-0.7) Basophils # (Auto) 0.0 x10^3/uL (0.0-0.2) Sodium Level 135 mmol/L (136-145) Potassium Level 3.5 mmol/L (3.5-5.1) Chloride Level 100 mmol/L (98-107) Carbon Dioxide Level 29 mmol/L (21-32) Anion Gap 6 (6-14) Blood Urea Nitrogen 7 mg/dL (8-26) Creatinine 0.7 mg/dL (0.7-1.3) Estimated GFR (Cockcroft-Gault) 122.5 Glucose Level 37 mg/dL (70-99) Calcium Level 9.0 mg/dL (8.5-10.1) Test 11/11/16 06:45 11/11/16 07:59 11/11/16 11:29 Glucose (Fingerstick) 153 mg/dL (70-99) 89 mg/dL (70-99) 179 mg/dL (70-99) Microbiology 11/07/16 Blood Culture - Preliminary, Resulted NO GROWTH AFTER 3 DAYS 11/08/16 Sputum Culture - Final, Complete 11/08/16 Sputum Result 1 - Final, Complete 11/08/16 Antimicrobic Susceptibility - Final, Complete 11/08/16 Gram Stain - Final, Complete Medications Current Medications Midazolam HCl 100 ml @ As Directed STK-MED ONCE IV ; Start 11/07/16 at 17:24; Stop 11/07/16 at 17:25; Status DC Insulin Human Regular 0 ml @ As Directed STK-MED ONCE IV ; Start 11/07/16 at 17: 34; Stop 11/07/16 at 17:35; Status DC Sodium Chloride 1,000 ml @ 1,000 mls/hr Q1H IV Last administered on 11/07/16 18:07; Start 11/07/16 at 18:00; Stop 11/07/16 at 19:59; Status DC Sodium Bicarbonate 150 meq/Sterile Water 1,150 ml @ 250 mls/hr Q4H36M IV Last administered on 11/07/16 18:31; Start 11/07/16 at 18:30; Stop 11/07/16 at 19:44; Status DC Etomidate (Amidate) 20 mg STK-MED ONCE IV ; Start 11/07/16 at 18:22; Stop at 18:23; Status DC Midazolam HCl (Versed) 5 mg STK-MED ONCE .ROUTE ; Start 11/07/16 at 18:23; Stop 11/07/16 at 18:24; Status DC Rocuronium Terrell (Zemuron) 50 mg STK-MED ONCE .ROUTE ; Start 11/07/16 at 18:23 ; Stop 11/07/16 at 18:24; Status DC Midazolam HCl 100 ml @ 0 mls/hr 1X ONCE IV Last administered on 11/07/16 18:42 ; Start 11/07/16 at 18:45; Stop 11/07/16 at 18:46; Status DC Levofloxacin/ Dextrose (Levaquin Per Pharmacy) 1 each PRN DAILY PRN MC SEE COMMENTS; Start 11/07/16 at 18:45; Stop 11/10/16 at 09:17; Status DC Levofloxacin/ Dextrose 150 ml @ 100 mls/hr Q24H IV Last administered on 17:02; Start 11/07/16 at 17:00; Stop 11/11/16 at 09:31; Status DC Ondansetron HCl (Zofran) 4 mg PRN Q8HRS PRN IV NAUSEA/VOMITING; Start 11/07/16 at 18:45; Stop 11/08/16 at 18:44; Status DC Insulin Human Regular 150 unit/ Sodium Chloride 151.5 ml @ 0 mls/hr CONT PRN PRN IV PER PROTOCOL Last administered on 11/07/16 19:59; Start 11/07/16 at 19:30 ; Stop 11/08/16 at 06:06; Status DC Sodium Bicarbonate 50 meq/Sodium Chloride 1,050 ml @ 500 mls/hr Q2H6M PRN IV Infuse for pH < 6.95; Start 11/07/16 at 22:30; Stop 11/07/16 at 22:30; Status DC Sodium Bicarbonate 50 meq/Sodium Chloride 1,050 ml @ 500 mls/hr PRN Q2HR PRN IV Infuse for pH < 6.95; Start 11/07/16 at 22:30; Stop 11/07/16 at 22:30; Status DC Sodium Bicarbonate 50 meq/Sodium Chloride 1,050 ml @ 500 mls/hr PRN Q2HR PRN IV Infuse for pH < 6.95 Last administered on 11/07/16 23:25; Start 11/07/16 at 19 :45; Stop 11/08/16 at 01:59; Status DC Sodium Chloride 1,000 ml @ 1,000 mls/hr 1X ONCE IV Last administered on 20:00; Start 11/07/16 at 20:30; Stop 11/07/16 at 21:29; Status DC Pantoprazole Sodium (Protonix Vial) 40 mg BID IVP Last administered on 07:48; Start 11/07/16 at 21:00; Stop 11/10/16 at 11:50; Status DC Potassium Chloride 50 ml @ 50 mls/hr Q1H IV Last administered on 11/08/16 02:08 ; Start 11/08/16 at 00:00; Stop 11/08/16 at 02:59; Status DC Magnesium Sulfate/ Dextrose 100 ml @ 25 mls/hr 1X ONCE IV Last administered on 11/08/16 00:12; Start 11/07/16 at 23:30; Stop 11/08/16 at 03:29; Status DC Haloperidol Lactate (Haldol) 2 mg PRN Q2HRS PRN IVP AGITATION; Start 11/07/16 at 23:15 Sodium Chloride 1,000 ml @ 250 mls/hr Q4H IV Last administered on 11/08/16 00: 08; Start 11/07/16 at 23:30; Stop 11/08/16 at 02:53; Status DC Sodium Phosphate 20 mmol/Dextrose 256.6667 ml @ 62.5 mls/hr 1X PRN PRN IV SEE COMMENTS Last administered on 11/08/16 00:17; Start 11/07/16 at 23:30; Stop at 06:10; Status DC Midazolam HCl 100 ml @ 0 mls/hr CONT PRN IV SEE I/O RECORD Last administered on 11/08/16 20:55; Start 11/07/16 at 23:30 Dextrose/Sodium Chloride 1,000 ml @ 250 mls/hr Q4H IV Last administered on 11/08 07:07; Start 11/08/16 at 03:00; Stop 11/08/16 at 11:28; Status DC Sodium Phosphate 20 mmol/Dextrose 256.6667 ml @ 64.167 m... 1X ONCE IV Last administered on 11/08/16 05:46; Start 11/08/16 at 06:00; Stop 11/08/16 at 09:59; Status DC Potassium Chloride 100 ml @ 100 mls/hr PRN Q1HR PRN IV SEE COMMENTS; Start 11/08/16 at 06:00; Stop 11/08/16 at 06:07; Status DC Insulin Detemir (Levemir) 48 units QHS SQ Last administered on 11/09/16 21:07; Start 11/08/16 at 21:00; Stop 11/10/16 at 08:52; Status DC Insulin Aspart (Novolog) 0-7 UNITS Q6HRS SQ Last administered on 11/11/16 11: 49; Start 11/08/16 at 06:00 Dextrose (Dextrose 50%-Water Syringe) 12.5 gm PRN Q15MIN PRN IV SEE COMMENTS; Start 11/08/16 at 06:00 Famotidine (Pepcid) 20 mg BID IVP ; Start 11/08/16 at 09:00; Stop 11/08/16 at 09: 00; Status DC Enoxaparin Sodium (Lovenox 40mg Syringe) 40 mg Q24H SQ Last administered on 08:27; Start 11/08/16 at 09:00 Insulin Aspart (Novolog) 17 units TIDAC SQ Last administered on 11/11/16 11:48 ; Start 11/08/16 at 11:30 Insulin Aspart (Novolog) 20 units 1X ONCE SQ Last administered on 11/08/16 09: 27; Start 11/08/16 at 09:15; Stop 11/08/16 at 09:16; Status DC Insulin Detemir (Levemir) 48 units QHS SQ ; Start 11/08/16 at 21:00; Status UNV Dextrose/Sodium Chloride 1,000 ml @ 250 mls/hr Q4H IV Last administered on 11/09 07:44; Start 11/08/16 at 11:15; Stop 11/09/16 at 11:08; Status DC Dextrose 250 ml @ 75 mls/hr 1X ONCE IV Last administered on 11/08/16 16:45; Start 11/08/16 at 16:45; Stop 11/08/16 at 20:04; Status DC Labetalol HCl (Normodyne) 20 mg PRN Q2HR PRN IVP HYPERTENSION, SEE COMMENTS Last administered on 11/09/16 15:17; Start 11/08/16 at 17:30 Potassium Chloride 50 ml @ 50 mls/hr Q1H IV Last administered on 11/09/16 10:07 ; Start 11/09/16 at 07:00; Stop 11/09/16 at 10:59; Status DC Naloxone HCl (Narcan) 2 mg STK-MED ONCE .ROUTE ; Start 11/07/16 at 16:50; Stop at 08:30; Status DC Chlorhexidine Gluconate (Peridex) 15 ml BID SWSP ; Start 11/09/16 at 21:00; Stop 11/09/16 at 21:00; Status DC Potassium Chloride 50 ml @ 50 mls/hr Q1H IV Last administered on 11/09/16 12:32 ; Start 11/09/16 at 11:30; Stop 11/09/16 at 13:29; Status DC Levofloxacin/ Dextrose 100 ml @ 100 mls/hr Q24H IV ; Start 11/09/16 at 11:15; Status UNV Sodium Bicarbonate 50 meq 1X ONCE IV Last administered on 11/09/16 13:29; Start 11/09/16 at 13:30; Stop 11/09/16 at 13:31; Status DC Morphine Sulfate 2 mg PRN Q2HR PRN IV PAIN Last administered on 11/10/16 20:42 ; Start 11/09/16 at 15:15 Potassium Chloride 50 ml @ 25 mls/hr PRN Q2HRS PRN IV PER PROTOCOL; Start at 19:45 Potassium Chloride 50 ml @ 25 mls/hr Q2H PRN IV PER PROTOCOL; Start 11/09/16 at 19:45 Potassium Chloride 50 ml @ 25 mls/hr PRN Q2HRS PRN IV PER PROTOCOL; Start at 19:45 Potassium Chloride 50 ml @ 50 mls/hr Q1H IV Last administered on 11/09/16 23:44 ; Start 11/09/16 at 19:45; Stop 11/09/16 at 23:44; Status DC Potassium Chloride 50 ml @ 50 mls/hr Q1H IV Last administered on 11/10/16 07:16 ; Start 11/10/16 at 05:00; Stop 11/10/16 at 08:59; Status DC Dextrose 250 ml @ 999 mls/hr 1X ONCE IV Last administered on 11/10/16 00:00; Start 11/10/16 at 00:00; Stop 11/10/16 at 05:30; Status DC Dextrose 500 ml @ 999 mls/hr 1X ONCE IV Last administered on 11/10/16 05:29; Start 11/10/16 at 05:30; Stop 11/10/16 at 06:00; Status DC Dextrose 250 ml @ 999 mls/hr 1X ONCE IV Last administered on 11/10/16 06:15; Start 11/10/16 at 06:15; Stop 11/10/16 at 06:30; Status DC Magnesium Sulfate/ Dextrose 50 ml @ 25 mls/hr 1X ONCE IV Last administered on 11/10/16 07:48; Start 11/10/16 at 08:00; Stop 11/10/16 at 09:59; Status DC Insulin Detemir (Levemir) 35 units QHS SQ Last administered on 11/10/16 21:49; Start 11/10/16 at 21:00 Pantoprazole Sodium (Protonix) 40 mg DAILYAC PO Last administered on 11/11/16 07:30; Start 11/11/16 at 07:30 Nicotine (Nicoderm Cq 14mg) 1 patch DAILY TD Last administered on 11/11/16 08: 28; Start 11/10/16 at 17:00 Cephalexin HCl (Keflex) 500 mg QID PO Last administered on 11/11/16 09:53; Start 11/11/16 at 09:30 Active Scripts Active Klor-Con M20 (Potassium Chloride) 20 Meq Tab.er.prt 20 Meq PO BIDWMEALS Reported Apidra Solostar (Insulin Glulisine) 100 Unit/1 Ml Insuln.pen 17 Unit SQ TIDACHC Lantus Solostar (Insulin Glargine,Hum.rec.anlog) 100 Unit/1 Ml Insuln.pen 48 Unit SQ QHS Spironolactone 25 Mg Tablet 25 Mg PO DAILY Gabapentin 400 Mg Capsule 400 Mg PO DAILY Ramipril 2.5 Mg Capsule 2.5 Mg PO DAILY Levothyroxine Sodium 75 Mcg Tablet 75 Mcg PO DAILYAC Fenofibrate 160 Mg Tablet 160 Mg PO DAILY Lisinopril 20 Mg Tablet 20 Mg PO DAILY Furosemide 20 Mg Tablet 20 Mg PO QODAY Hydrochlorothiazide Tablet (Hydrochlorothiazide) 25 Mg Tablet 25 Mg PO DAILY Atorvastatin Calcium 10 Mg Tablet 10 Mg PO DAILY Vitals/I & O Vital Sign - Last 24 Hours 11/10/16 11/10/16 11/10/16 11/10/16 15:00 16:29 19:00 20:00 Temp 98.4 98.8 98.4 98.8 Pulse 85 101 Resp 19 18 B/P (MAP) 127/90 (102) 112/72 (85) Pulse Ox 99 96 O2 Delivery Room Air Room Air Room Air Room Air 11/10/16 11/10/16 11/10/16 11/11/16 20:42 21:49 23:00 03:00 Temp 99.7 98.6 99.7 98.6 Pulse 85 85 Resp 22 18 18 B/P (MAP) 129/78 (95) 116/88 (97) Pulse Ox 96 95 O2 Delivery Room Air Room Air Room Air Room Air 11/11/16 11/11/16 11/11/16 07:00 08:00 11:00 Temp 98.1 98.1 98.1 98.1 Pulse 92 96 Resp 19 20 B/P (MAP) 134/92 (106) 145/86 (105) Pulse Ox 96 95 O2 Delivery Room Air Room Air Room Air Intake and Output 11/10/16 11/10/16 11/11/16 15:00 23:00 07:00 Intake Total 800 ml 1821 ml Output Total 850 ml 625 ml 1125 ml Balance -50 ml 1196 ml -1125 ml LONI FERNANDEZ MD November 11, 2016 11:59
--- NOTE | 2016-11-11 12:34 | PDOC ---
PULMONARY PROGRESS NOTES Subjective awake extubated 11/09 doing well Vitals Vital Signs Date Time Temp Pulse Resp B/P (MAP) Pulse Ox O2 Delivery O2 Flow Rate FiO2 11/11/16 11:00 98.1 96 20 145/86 (105) 95 Room Air 98.1 General: Alert, No acute distress Lungs: Clear Cardiovascular: S1 Abdomen: Soft Neuro Exam: Alert Extremities: No Edema Skin: Warm Labs Laboratory Tests Test 11/09/16 16:49 11/09/16 17:08 11/09/16 18:54 11/09/16 18:55 Glucose (Fingerstick) 36 mg/dL (70-99) 116 mg/dL (70-99) 71 mg/dL (70-99) Sodium Level 142 mmol/L (136-145) Potassium Level 2.8 mmol/L (3.5-5.1) Chloride Level 107 mmol/L (98-107) Carbon Dioxide Level 25 mmol/L (21-32) Anion Gap 10 (6-14) Blood Urea Nitrogen 7 mg/dL (8-26) Creatinine 0.6 mg/dL (0.7-1.3) Estimated GFR (Cockcroft-Gault) 146.4 BUN/Creatinine Ratio 12 (6-20) Glucose Level 69 mg/dL (70-99) Calcium Level 8.2 mg/dL (8.5-10.1) Total Bilirubin 0.5 mg/dL (0.2-1.0) Aspartate Amino Transf (AST/SGOT) 41 U/L (15-37) Alanine Aminotransferase (ALT/SGPT) 34 U/L (16-63) Alkaline Phosphatase 82 U/L (46-116) Total Protein 4.9 g/dL (6.4-8.2) Albumin 2.3 g/dL (3.4-5.0) Albumin/Globulin Ratio 0.9 (1.0-1.7) Test 11/09/16 21:06 11/09/16 23:42 11/10/16 00:27 11/10/16 03:30 Glucose (Fingerstick) 97 mg/dL (70-99) 62 mg/dL (70-99) 95 mg/dL (70-99) White Blood Count 7.2 x10^3/uL (4.0-11.0) Red Blood Count 3.46 x10^6/uL (4.30-5.70) Hemoglobin 11.5 g/dL (13.0-17.5) Hematocrit 31.4 % (39.0-53.0) Mean Corpuscular Volume 91 fL (79-100) Mean Corpuscular Hemoglobin 33 pg (25-35) Mean Corpuscular Hemoglobin Concent 37 g/dL (31-37) Red Cell Distribution Width 14.0 % (11.5-14.5) Platelet Count 135 x10^3/uL (140-400) Neutrophils (%) (Auto) 59 % (31-73) Lymphocytes (%) (Auto) 30 % (24-48) Monocytes (%) (Auto) 8 % (0-9) Eosinophils (%) (Auto) 2 % (0-3) Basophils (%) (Auto) 1 % (0-3) Neutrophils # (Auto) 4.3 x10^3uL (1.8-7.7) Lymphocytes # (Auto) 2.2 x10^3/uL (1.0-4.8) Monocytes # (Auto) 0.6 x10^3/uL (0.0-1.1) Eosinophils # (Auto) 0.1 x10^3/uL (0.0-0.7) Basophils # (Auto) 0.0 x10^3/uL (0.0-0.2) Sodium Level 140 mmol/L (136-145) Potassium Level 2.8 mmol/L (3.5-5.1) Chloride Level 105 mmol/L (98-107) Carbon Dioxide Level 27 mmol/L (21-32) Anion Gap 8 (6-14) Blood Urea Nitrogen 6 mg/dL (8-26) Creatinine 0.6 mg/dL (0.7-1.3) Estimated GFR (Cockcroft-Gault) 146.4 BUN/Creatinine Ratio 10 (6-20) Glucose Level 26 mg/dL (70-99) Calcium Level 8.7 mg/dL (8.5-10.1) Magnesium Level 1.3 mg/dL (1.8-2.4) Total Bilirubin 0.5 mg/dL (0.2-1.0) Aspartate Amino Transf (AST/SGOT) 45 U/L (15-37) Alanine Aminotransferase (ALT/SGPT) 33 U/L (16-63) Alkaline Phosphatase 89 U/L (46-116) Total Protein 5.7 g/dL (6.4-8.2) Albumin 2.5 g/dL (3.4-5.0) Albumin/Globulin Ratio 0.8 (1.0-1.7) Test 11/10/16 05:04 11/10/16 06:11 11/10/16 06:39 11/10/16 07:21 Glucose (Fingerstick) 111 mg/dL (70-99) 68 mg/dL (70-99) 108 mg/dL (70-99) 71 mg/dL (70-99) Test 11/10/16 08:14 11/10/16 08:52 11/10/16 11:20 11/10/16 16:15 Glucose (Fingerstick) 58 mg/dL (70-99) 127 mg/dL (70-99) 185 mg/dL (70-99) Sodium Level 131 mmol/L (136-145) Potassium Level 4.3 mmol/L (3.5-5.1) Chloride Level 98 mmol/L (98-107) Carbon Dioxide Level 27 mmol/L (21-32) Anion Gap 6 (6-14) Blood Urea Nitrogen 6 mg/dL (8-26) Creatinine 0.7 mg/dL (0.7-1.3) Estimated GFR (Cockcroft-Gault) 122.5 BUN/Creatinine Ratio 9 (6-20) Glucose Level 251 mg/dL (70-99) Calcium Level 8.1 mg/dL (8.5-10.1) Magnesium Level 1.9 mg/dL (1.8-2.4) Total Bilirubin 0.3 mg/dL (0.2-1.0) Aspartate Amino Transf (AST/SGOT) 46 U/L (15-37) Alanine Aminotransferase (ALT/SGPT) 32 U/L (16-63) Alkaline Phosphatase 87 U/L (46-116) Total Protein 5.0 g/dL (6.4-8.2) Albumin 2.3 g/dL (3.4-5.0) Albumin/Globulin Ratio 0.9 (1.0-1.7) Test 11/10/16 21:23 11/11/16 00:43 11/11/16 04:00 11/11/16 06:45 Glucose (Fingerstick) 216 mg/dL (70-99) 182 mg/dL (70-99) 153 mg/dL (70-99) White Blood Count 5.5 x10^3/uL (4.0-11.0) Red Blood Count 3.51 x10^6/uL (4.30-5.70) Hemoglobin 11.5 g/dL (13.0-17.5) Hematocrit 32.1 % (39.0-53.0) Mean Corpuscular Volume 91 fL (79-100) Mean Corpuscular Hemoglobin 33 pg (25-35) Mean Corpuscular Hemoglobin Concent 36 g/dL (31-37) Red Cell Distribution Width 13.7 % (11.5-14.5) Platelet Count 128 x10^3/uL (140-400) Neutrophils (%) (Auto) 51 % (31-73) Lymphocytes (%) (Auto) 37 % (24-48) Monocytes (%) (Auto) 10 % (0-9) Eosinophils (%) (Auto) 2 % (0-3) Basophils (%) (Auto) 1 % (0-3) Neutrophils # (Auto) 2.8 x10^3uL (1.8-7.7) Lymphocytes # (Auto) 2.0 x10^3/uL (1.0-4.8) Monocytes # (Auto) 0.5 x10^3/uL (0.0-1.1) Eosinophils # (Auto) 0.1 x10^3/uL (0.0-0.7) Basophils # (Auto) 0.0 x10^3/uL (0.0-0.2) Sodium Level 135 mmol/L (136-145) Potassium Level 3.5 mmol/L (3.5-5.1) Chloride Level 100 mmol/L (98-107) Carbon Dioxide Level 29 mmol/L (21-32) Anion Gap 6 (6-14) Blood Urea Nitrogen 7 mg/dL (8-26) Creatinine 0.7 mg/dL (0.7-1.3) Estimated GFR (Cockcroft-Gault) 122.5 Glucose Level 37 mg/dL (70-99) Calcium Level 9.0 mg/dL (8.5-10.1) Test 11/11/16 07:59 11/11/16 11:29 Glucose (Fingerstick) 89 mg/dL (70-99) 179 mg/dL (70-99) Laboratory Tests Test 11/10/16 16:15 11/10/16 21:23 11/11/16 00:43 11/11/16 04:00 Glucose (Fingerstick) 185 mg/dL (70-99) 216 mg/dL (70-99) 182 mg/dL (70-99) White Blood Count 5.5 x10^3/uL (4.0-11.0) Red Blood Count 3.51 x10^6/uL (4.30-5.70) Hemoglobin 11.5 g/dL (13.0-17.5) Hematocrit 32.1 % (39.0-53.0) Mean Corpuscular Volume 91 fL (79-100) Mean Corpuscular Hemoglobin 33 pg (25-35) Mean Corpuscular Hemoglobin Concent 36 g/dL (31-37) Red Cell Distribution Width 13.7 % (11.5-14.5) Platelet Count 128 x10^3/uL (140-400) Neutrophils (%) (Auto) 51 % (31-73) Lymphocytes (%) (Auto) 37 % (24-48) Monocytes (%) (Auto) 10 % (0-9) Eosinophils (%) (Auto) 2 % (0-3) Basophils (%) (Auto) 1 % (0-3) Neutrophils # (Auto) 2.8 x10^3uL (1.8-7.7) Lymphocytes # (Auto) 2.0 x10^3/uL (1.0-4.8) Monocytes # (Auto) 0.5 x10^3/uL (0.0-1.1) Eosinophils # (Auto) 0.1 x10^3/uL (0.0-0.7) Basophils # (Auto) 0.0 x10^3/uL (0.0-0.2) Sodium Level 135 mmol/L (136-145) Potassium Level 3.5 mmol/L (3.5-5.1) Chloride Level 100 mmol/L (98-107) Carbon Dioxide Level 29 mmol/L (21-32) Anion Gap 6 (6-14) Blood Urea Nitrogen 7 mg/dL (8-26) Creatinine 0.7 mg/dL (0.7-1.3) Estimated GFR (Cockcroft-Gault) 122.5 Glucose Level 37 mg/dL (70-99) Calcium Level 9.0 mg/dL (8.5-10.1) Test 11/11/16 06:45 11/11/16 07:59 11/11/16 11:29 Glucose (Fingerstick) 153 mg/dL (70-99) 89 mg/dL (70-99) 179 mg/dL (70-99) Medications Active Scripts Medications Dose Route/Sig Max Daily Dose Days Date Category Klor-Con M20 (Potassium Chloride) 20 Meq Tab.er.prt 20 Meq PO BIDWMEALS 04/08/16 Rx Apidra Solostar (Insulin Glulisine) 100 Unit/1 Ml Insuln.pen 17 Unit SQ TIDACHC 04/06/16 Reported Lantus Solostar (Insulin Glargine,Hum.rec.anlog) 100 Unit/1 Ml Insuln.pen 48 Unit SQ QHS 04/27/15 Reported Spironolactone 25 Mg Tablet 25 Mg PO DAILY 04/27/15 Reported Gabapentin 400 Mg Capsule 400 Mg PO DAILY 04/27/15 Reported Ramipril 2.5 Mg Capsule 2.5 Mg PO DAILY 04/27/15 Reported Levothyroxine Sodium 75 Mcg Tablet 75 Mcg PO DAILYAC 04/27/15 Reported Fenofibrate 160 Mg Tablet 160 Mg PO DAILY 04/27/15 Reported Lisinopril 20 Mg Tablet 20 Mg PO DAILY 04/27/15 Reported Furosemide 20 Mg Tablet 20 Mg PO QODAY 04/27/15 Reported Hydrochlorothiazide Tablet (Hydrochlorothiazide) 25 Mg Tablet 25 Mg PO DAILY 04/27/15 Reported Atorvastatin Calcium 10 Mg Tablet 10 Mg PO DAILY 04/27/15 Reported Impression . 1. Acute respiratory failure, multifactorial (DKA, encephalopathy, Meth), extubated 11/09 2. Acute metabolic encephalopathy. resolved 3. Abnormal chest x-ray.increase LLL infiltrate, on antibiotic 4. Pneumonia.LLL 5. Diabetic ketoacidosis. resolved 6. Severe metabolic acidosis, improved 7. Leukocytosis.improved 8. Diabetes mellitus. 9. Legally blind. 10. History of alcohol abuse. 11. low Mg and K Plan . 1. Titrate FiO2 to keep O2 saturation to 94%. 2. PO nutrition 3. antibiotic. 4. Sputum culture. 5. Lovenox for DVT prophylaxis. 7. replace K, Mg 8. doing well pulmonary jalloh. monitor ALISA FRAGOSO MD November 11, 2016 12:34
--- NOTE | 2016-11-11 12:36 | PDOC ---
Subjective: Subjective: No GI complaints. No n/v, no pain. Eating and stooling w/o problem. Objective: Vital Signs: Vital Signs Date Time Temp Pulse Resp B/P (MAP) Pulse Ox O2 Delivery O2 Flow Rate FiO2 11/11/16 11:00 98.1 96 20 145/86 (105) 95 Room Air 98.1 Labs: Laboratory Tests Test 11/10/16 16:15 11/10/16 21:23 11/11/16 00:43 11/11/16 04:00 Glucose (Fingerstick) 185 mg/dL 216 mg/dL 182 mg/dL White Blood Count 5.5 x10^3/uL Red Blood Count 3.51 x10^6/uL Hemoglobin 11.5 g/dL Hematocrit 32.1 % Mean Corpuscular Volume 91 fL Mean Corpuscular Hemoglobin 33 pg Mean Corpuscular Hemoglobin Concent 36 g/dL Red Cell Distribution Width 13.7 % Platelet Count 128 x10^3/uL Neutrophils (%) (Auto) 51 % Lymphocytes (%) (Auto) 37 % Monocytes (%) (Auto) 10 % Eosinophils (%) (Auto) 2 % Basophils (%) (Auto) 1 % Neutrophils # (Auto) 2.8 x10^3uL Lymphocytes # (Auto) 2.0 x10^3/uL Monocytes # (Auto) 0.5 x10^3/uL Eosinophils # (Auto) 0.1 x10^3/uL Basophils # (Auto) 0.0 x10^3/uL Sodium Level 135 mmol/L Potassium Level 3.5 mmol/L Chloride Level 100 mmol/L Carbon Dioxide Level 29 mmol/L Anion Gap 6 Blood Urea Nitrogen 7 mg/dL Creatinine 0.7 mg/dL Estimated GFR (Cockcroft-Gault) 122.5 Glucose Level 37 mg/dL Calcium Level 9.0 mg/dL Test 11/11/16 06:45 11/11/16 07:59 11/11/16 11:29 Glucose (Fingerstick) 153 mg/dL 89 mg/dL 179 mg/dL PE: GEN: NAD, up to chair LUNGS: clear anteriorly HEART: RRR ABD: NABS, S/ND/NT NEURO/PSYCH: A & O 3 A/P: Coffee-ground emesis - no recurrence -on PPI -Hgb stable -tolerating PO DM -- Stable GI-jalloh. Continue PPI. BART PARKS November 11, 2016 12:36
[2016-11-11 15:00] VITALS: BP 113/67
[2016-11-11 19:00] VITALS: BP 124/73
[2016-11-11] MEDS ORDERED: INSULIN DETEMIR 300 UNITS/3 ML INSULN.PEN. SQ SCH (21:00)
[2016-11-11] MEDS: MORPHINE SULFATE 2 MG/ML DISP.SYRIN. IV PRN (21:45)
[2016-11-11 23:00] VITALS: BP 112/78
[2016-11-12 03:00] VITALS: BP 124/71
[2016-11-12] MEDS: INSULIN ASPART 300 UNITS/3 ML INSULN.PEN SQ SCH ×6 (05:41→18:00)
[2016-11-12 07:00] VITALS: BP 119/84
[2016-11-12] MEDS: PANTOPRAZOLE 40 MG TABLET.DR. PO SCH (07:30)
[2016-11-12] MEDS ORDERED: DEXTROSE ORAL GEL 15 GM TUBE. ONE (08:29)
[2016-11-12] MEDS ORDERED: DEXTROSE ORAL GEL 15 GM TUBE. PO STA (08:38)
[2016-11-12] MEDS: CEPHALEXIN 250 MG CAPSULE. PO SCH ×2 (09:00→20:43)
--- NOTE | 2016-11-12 09:46 | PDOC ---
PULMONARY PROGRESS NOTES Subjective awake extubated 11/09 doing well Vitals Vital Signs Date Time Temp Pulse Resp B/P (MAP) Pulse Ox O2 Delivery O2 Flow Rate FiO2 11/12/16 07:00 97.8 87 16 119/84 (96) 98 Room Air 97.8 11/11/16 19:55 3.0 General: Alert, No acute distress Lungs: Clear Cardiovascular: S1 Abdomen: Soft Neuro Exam: Alert Extremities: No Edema Skin: Warm Labs Laboratory Tests Test 11/10/16 11:20 11/10/16 16:15 11/10/16 21:23 11/11/16 00:43 Sodium Level 131 mmol/L (136-145) Potassium Level 4.3 mmol/L (3.5-5.1) Chloride Level 98 mmol/L (98-107) Carbon Dioxide Level 27 mmol/L (21-32) Anion Gap 6 (6-14) Blood Urea Nitrogen 6 mg/dL (8-26) Creatinine 0.7 mg/dL (0.7-1.3) Estimated GFR (Cockcroft-Gault) 122.5 BUN/Creatinine Ratio 9 (6-20) Glucose Level 251 mg/dL (70-99) Calcium Level 8.1 mg/dL (8.5-10.1) Magnesium Level 1.9 mg/dL (1.8-2.4) Total Bilirubin 0.3 mg/dL (0.2-1.0) Aspartate Amino Transf (AST/SGOT) 46 U/L (15-37) Alanine Aminotransferase (ALT/SGPT) 32 U/L (16-63) Alkaline Phosphatase 87 U/L (46-116) Total Protein 5.0 g/dL (6.4-8.2) Albumin 2.3 g/dL (3.4-5.0) Albumin/Globulin Ratio 0.9 (1.0-1.7) Glucose (Fingerstick) 185 mg/dL (70-99) 216 mg/dL (70-99) 182 mg/dL (70-99) Test 11/11/16 04:00 11/11/16 06:45 11/11/16 07:59 11/11/16 11:29 White Blood Count 5.5 x10^3/uL (4.0-11.0) Red Blood Count 3.51 x10^6/uL (4.30-5.70) Hemoglobin 11.5 g/dL (13.0-17.5) Hematocrit 32.1 % (39.0-53.0) Mean Corpuscular Volume 91 fL (79-100) Mean Corpuscular Hemoglobin 33 pg (25-35) Mean Corpuscular Hemoglobin Concent 36 g/dL (31-37) Red Cell Distribution Width 13.7 % (11.5-14.5) Platelet Count 128 x10^3/uL (140-400) Neutrophils (%) (Auto) 51 % (31-73) Lymphocytes (%) (Auto) 37 % (24-48) Monocytes (%) (Auto) 10 % (0-9) Eosinophils (%) (Auto) 2 % (0-3) Basophils (%) (Auto) 1 % (0-3) Neutrophils # (Auto) 2.8 x10^3uL (1.8-7.7) Lymphocytes # (Auto) 2.0 x10^3/uL (1.0-4.8) Monocytes # (Auto) 0.5 x10^3/uL (0.0-1.1) Eosinophils # (Auto) 0.1 x10^3/uL (0.0-0.7) Basophils # (Auto) 0.0 x10^3/uL (0.0-0.2) Sodium Level 135 mmol/L (136-145) Potassium Level 3.5 mmol/L (3.5-5.1) Chloride Level 100 mmol/L (98-107) Carbon Dioxide Level 29 mmol/L (21-32) Anion Gap 6 (6-14) Blood Urea Nitrogen 7 mg/dL (8-26) Creatinine 0.7 mg/dL (0.7-1.3) Estimated GFR (Cockcroft-Gault) 122.5 Glucose Level 37 mg/dL (70-99) Calcium Level 9.0 mg/dL (8.5-10.1) Glucose (Fingerstick) 153 mg/dL (70-99) 89 mg/dL (70-99) 179 mg/dL (70-99) Test 11/11/16 14:57 11/11/16 15:16 11/11/16 16:34 11/11/16 21:02 Glucose (Fingerstick) 56 mg/dL (70-99) 62 mg/dL (70-99) 72 mg/dL (70-99) 162 mg/dL (70-99) Test 11/12/16 02:57 11/12/16 08:19 11/12/16 09:00 11/12/16 09:06 Glucose (Fingerstick) 250 mg/dL (70-99) 45 mg/dL (70-99) 132 mg/dL (70-99) Glucose Level 97 mg/dL (70-99) Laboratory Tests Test 11/11/16 11:29 11/11/16 14:57 11/11/16 15:16 11/11/16 16:34 Glucose (Fingerstick) 179 mg/dL (70-99) 56 mg/dL (70-99) 62 mg/dL (70-99) 72 mg/dL (70-99) Test 11/11/16 21:02 11/12/16 02:57 11/12/16 08:19 11/12/16 09:00 Glucose (Fingerstick) 162 mg/dL (70-99) 250 mg/dL (70-99) 45 mg/dL (70-99) Glucose Level 97 mg/dL (70-99) Test 11/12/16 09:06 Glucose (Fingerstick) 132 mg/dL (70-99) Medications Active Scripts Medications Dose Route/Sig Max Daily Dose Days Date Category Klor-Con M20 (Potassium Chloride) 20 Meq Tab.er.prt 20 Meq PO BIDWMEALS 04/08/16 Rx Apidra Solostar (Insulin Glulisine) 100 Unit/1 Ml Insuln.pen 17 Unit SQ TIDACHC 04/06/16 Reported Lantus Solostar (Insulin Glargine,Hum.rec.anlog) 100 Unit/1 Ml Insuln.pen 48 Unit SQ QHS 04/27/15 Reported Spironolactone 25 Mg Tablet 25 Mg PO DAILY 04/27/15 Reported Gabapentin 400 Mg Capsule 400 Mg PO DAILY 04/27/15 Reported Ramipril 2.5 Mg Capsule 2.5 Mg PO DAILY 04/27/15 Reported Levothyroxine Sodium 75 Mcg Tablet 75 Mcg PO DAILYAC 04/27/15 Reported Fenofibrate 160 Mg Tablet 160 Mg PO DAILY 04/27/15 Reported Lisinopril 20 Mg Tablet 20 Mg PO DAILY 04/27/15 Reported Furosemide 20 Mg Tablet 20 Mg PO QODAY 04/27/15 Reported Hydrochlorothiazide Tablet (Hydrochlorothiazide) 25 Mg Tablet 25 Mg PO DAILY 04/27/15 Reported Atorvastatin Calcium 10 Mg Tablet 10 Mg PO DAILY 04/27/15 Reported Impression . 1. Acute respiratory failure, multifactorial (DKA, encephalopathy, Meth), extubated 11/09 2. Acute metabolic encephalopathy. resolved 3. Abnormal chest x-ray.increase LLL infiltrate, on antibiotic 4. Pneumonia.LLL 5. Diabetic ketoacidosis. resolved 6. Severe metabolic acidosis, improved 7. Leukocytosis.improved 8. Diabetes mellitus. 9. Legally blind. 10. History of alcohol abuse. 11. low Mg and K Plan . 1. off oxygen 2. PO nutrition 3. antibiotic.PO 4. no further CG emesis 5. replace K, Mg as needed 8. doing well pulmonary jalloh. monitor ALISA FRAGOSO MD November 12, 2016 09:46
[2016-11-12 11:00] VITALS: BP 117/89
--- NOTE | 2016-11-12 11:07 | PDOC ---
Infectious Disease Note Subjective Subjective Doing ok Occ cough ROS ROS GEN: Denies fevers, chills, sweats HEENT: Denies blurred vision, sore throat CV: Denies chest pain RESP: Denies shortness of air, cough GI: Denies n/v/d NEURO: Denies confusion, dizziness MSK: Denies weakness, joint pain/swelling Vital Sign Vital Signs Vital Signs Date Time Temp Pulse Resp B/P (MAP) Pulse Ox O2 Delivery O2 Flow Rate FiO2 11/12/16 07:00 97.8 87 16 119/84 (96) 98 Room Air 97.8 11/11/16 19:55 3.0 Physical Exam PHYSICAL EXAM GENERAL: NAD, Alert, in chair and shaving HEENT: PERRL, OC/OP - clear NECK: Supple, no JVD, no LN LUNGS: Clear HEART: S1S2, no gallop, no murmur ABD: Soft, NT, no organomegaly, no rebound EXT: No edema, no cyanosis [employer]: Alert, oriented x 3, no focal neurologic deficit SKIN: No rash IV: ok Labs Lab Laboratory Tests Test 11/11/16 11:29 11/11/16 14:57 11/11/16 15:16 11/11/16 16:34 Glucose (Fingerstick) 179 mg/dL (70-99) 56 mg/dL (70-99) 62 mg/dL (70-99) 72 mg/dL (70-99) Test 11/11/16 21:02 11/12/16 02:57 11/12/16 08:19 11/12/16 09:00 Glucose (Fingerstick) 162 mg/dL (70-99) 250 mg/dL (70-99) 45 mg/dL (70-99) Glucose Level 97 mg/dL (70-99) Test 11/12/16 09:06 Glucose (Fingerstick) 132 mg/dL (70-99) Objective Assessment LLL pneumonia. MSSA in sputum 11/08 - improving with levoflox Leukocytosis, improved Allergy amoxicillin & Augmentin. "Not a serious reaction" DKA, improved Acute encephalopathy - improved Acute respiratory failure s/p intubation RAVEN, improved Alcoholism Polysubstance abuse. Plan Plan of Care Cont Keflex would treat through 11/18 Ok to transfer per NIRALI MANDEL MD November 12, 2016 11:07
--- NOTE | 2016-11-12 12:05 | PDOC ---
Subjective: Subjective: Has occasional chest/epigastric pain - no pattern. Objective: Objective: No GI concerns per RN. Vital Signs: Vital Signs Date Time Temp Pulse Resp B/P (MAP) Pulse Ox O2 Delivery O2 Flow Rate FiO2 11/12/16 11:00 98.7 92 18 117/89 (98) 92 Room Air 98.7 11/11/16 19:55 3.0 Labs: Laboratory Tests Test 11/11/16 14:57 11/11/16 15:16 11/11/16 16:34 11/11/16 21:02 Glucose (Fingerstick) 56 mg/dL 62 mg/dL 72 mg/dL 162 mg/dL Test 11/12/16 02:57 11/12/16 08:19 11/12/16 09:00 11/12/16 09:06 Glucose (Fingerstick) 250 mg/dL 45 mg/dL 132 mg/dL Glucose Level 97 mg/dL Test 11/12/16 11:15 Glucose (Fingerstick) 250 mg/dL PE: GEN: NAD LUNGS: decreased HEART: RRR ABD: S/ND/NT NEURO/PSYCH: A & O 3 A/P: Coffee-ground emesis - no recurrence -on PPI, Hgb stable, tolerating PO -- Stable per GI. DC/transfer per primary. BART PARKS November 12, 2016 12:05
--- NOTE | 2016-11-12 13:08 | PDOC ---
PROGRESS NOTES Chief Complaint Chief Complaint Acute respir failure ASSESSMENT AND PLAN: 1. LLL PNA: improving. on Keflex 2. Sepsis: improving 3. DKA: off insulin gtt, gap closed 4. DM2: on levemir and humalog. ISS. very tight control; decrease Levemir dose 30 due to hypoglycemia 5. Acute metabolic acidosis: resolved 6. Acute metabolic encephalopathy: comatose on presentation, requiring emergent intubation; extubated 11/09. resolved 7. Leukocytosis: resolved 8. RAVEN: resolved. 9. Hypokalemia: severe. replete IV/PO 10. Alcoholism: monitor, no W/D sx at this time 11. Tobaccoism: nicotine gum 12. Polysubstance abuse. 13. Prophylaxis: lovenox, PPI 14. [facility] History of Present Illness History of Present Illness feels much better, still weak, + Chest Pain, right side. no cough Vitals Vitals Vital Signs Date Time Temp Pulse Resp B/P (MAP) Pulse Ox O2 Delivery O2 Flow Rate FiO2 11/12/16 11:00 98.7 92 18 117/89 (98) 92 Room Air 98.7 11/11/16 19:55 3.0 Physical Exam General: Alert, Cooperative, No acute distress Heart: Regular rate, No murmurs Lungs: Clear Abdomen: Normal bowel sounds, Soft Extremities: No clubbing Skin: No rashes Labs LABS Laboratory Tests Test 11/11/16 14:57 11/11/16 15:16 11/11/16 16:34 11/11/16 21:02 Glucose (Fingerstick) 56 mg/dL (70-99) 62 mg/dL (70-99) 72 mg/dL (70-99) 162 mg/dL (70-99) Test 11/12/16 02:57 11/12/16 08:19 11/12/16 09:00 11/12/16 09:06 Glucose (Fingerstick) 250 mg/dL (70-99) 45 mg/dL (70-99) 132 mg/dL (70-99) Glucose Level 97 mg/dL (70-99) Test 11/12/16 11:15 Glucose (Fingerstick) 250 mg/dL (70-99) Assessment and Plan Assessmemt and Plan try to DC home in AM with home health Problems Medical Problems: (1) Acute metabolic encephalopathy Status: Acute (2) Acute renal failure Status: Acute (3) Community acquired bacterial pneumonia Status: Acute (4) Diabetic ketoacidosis Status: Acute Problems: Comment Review of Relevant I have reviewed the following items karol (where applicable) has been applied. Labs Laboratory Tests Test 11/10/16 16:15 11/10/16 21:23 11/11/16 00:43 11/11/16 04:00 Glucose (Fingerstick) 185 mg/dL (70-99) 216 mg/dL (70-99) 182 mg/dL (70-99) White Blood Count 5.5 x10^3/uL (4.0-11.0) Red Blood Count 3.51 x10^6/uL (4.30-5.70) Hemoglobin 11.5 g/dL (13.0-17.5) Hematocrit 32.1 % (39.0-53.0) Mean Corpuscular Volume 91 fL (79-100) Mean Corpuscular Hemoglobin 33 pg (25-35) Mean Corpuscular Hemoglobin Concent 36 g/dL (31-37) Red Cell Distribution Width 13.7 % (11.5-14.5) Platelet Count 128 x10^3/uL (140-400) Neutrophils (%) (Auto) 51 % (31-73) Lymphocytes (%) (Auto) 37 % (24-48) Monocytes (%) (Auto) 10 % (0-9) Eosinophils (%) (Auto) 2 % (0-3) Basophils (%) (Auto) 1 % (0-3) Neutrophils # (Auto) 2.8 x10^3uL (1.8-7.7) Lymphocytes # (Auto) 2.0 x10^3/uL (1.0-4.8) Monocytes # (Auto) 0.5 x10^3/uL (0.0-1.1) Eosinophils # (Auto) 0.1 x10^3/uL (0.0-0.7) Basophils # (Auto) 0.0 x10^3/uL (0.0-0.2) Sodium Level 135 mmol/L (136-145) Potassium Level 3.5 mmol/L (3.5-5.1) Chloride Level 100 mmol/L (98-107) Carbon Dioxide Level 29 mmol/L (21-32) Anion Gap 6 (6-14) Blood Urea Nitrogen 7 mg/dL (8-26) Creatinine 0.7 mg/dL (0.7-1.3) Estimated GFR (Cockcroft-Gault) 122.5 Glucose Level 37 mg/dL (70-99) Calcium Level 9.0 mg/dL (8.5-10.1) Test 11/11/16 06:45 11/11/16 07:59 11/11/16 11:29 11/11/16 14:57 Glucose (Fingerstick) 153 mg/dL (70-99) 89 mg/dL (70-99) 179 mg/dL (70-99) 56 mg/dL (70-99) Test 11/11/16 15:16 11/11/16 16:34 11/11/16 21:02 11/12/16 02:57 Glucose (Fingerstick) 62 mg/dL (70-99) 72 mg/dL (70-99) 162 mg/dL (70-99) 250 mg/dL (70-99) Test 11/12/16 08:19 11/12/16 09:00 11/12/16 09:06 11/12/16 11:15 Glucose (Fingerstick) 45 mg/dL (70-99) 132 mg/dL (70-99) 250 mg/dL (70-99) Glucose Level 97 mg/dL (70-99) Laboratory Tests Test 11/11/16 14:57 11/11/16 15:16 11/11/16 16:34 11/11/16 21:02 Glucose (Fingerstick) 56 mg/dL (70-99) 62 mg/dL (70-99) 72 mg/dL (70-99) 162 mg/dL (70-99) Test 11/12/16 02:57 11/12/16 08:19 11/12/16 09:00 11/12/16 09:06 Glucose (Fingerstick) 250 mg/dL (70-99) 45 mg/dL (70-99) 132 mg/dL (70-99) Glucose Level 97 mg/dL (70-99) Test 11/12/16 11:15 Glucose (Fingerstick) 250 mg/dL (70-99) Microbiology 11/07/16 Blood Culture - Preliminary, Resulted NO GROWTH AFTER 4 DAYS 5/7/17 Sputum Culture - Final, Complete 11/08/16 Sputum Result 1 - Final, Complete 11/08/16 Antimicrobic Susceptibility - Final, Complete 11/08/16 Gram Stain - Final, Complete Medications Current Medications Midazolam HCl 100 ml @ As Directed STK-MED ONCE IV ; Start 11/07/16 at 17:24; Stop 11/07/16 at 17:25; Status DC Insulin Human Regular 0 ml @ As Directed STK-MED ONCE IV ; Start 11/07/16 at 17: 34; Stop 11/07/16 at 17:35; Status DC Sodium Chloride 1,000 ml @ 1,000 mls/hr Q1H IV Last administered on 11/07/16 18:07; Start 11/07/16 at 18:00; Stop 11/07/16 at 19:59; Status DC Sodium Bicarbonate 150 meq/Sterile Water 1,150 ml @ 250 mls/hr Q4H36M IV Last administered on 11/07/16 18:31; Start 11/07/16 at 18:30; Stop 11/07/16 at 19:44; Status DC Etomidate (Amidate) 20 mg STK-MED ONCE IV ; Start 11/07/16 at 18:22; Stop at 18:23; Status DC Midazolam HCl (Versed) 5 mg STK-MED ONCE .ROUTE ; Start 11/07/16 at 18:23; Stop 11/07/16 at 18:24; Status DC Rocuronium Nucla (Zemuron) 50 mg STK-MED ONCE .ROUTE ; Start 11/07/16 at 18:23 ; Stop 11/07/16 at 18:24; Status DC Midazolam HCl 100 ml @ 0 mls/hr 1X ONCE IV Last administered on 11/07/16 18:42 ; Start 11/07/16 at 18:45; Stop 11/07/16 at 18:46; Status DC Levofloxacin/ Dextrose (Levaquin Per Pharmacy) 1 each PRN DAILY PRN MC SEE COMMENTS; Start 11/07/16 at 18:45; Stop 11/10/16 at 09:17; Status DC Levofloxacin/ Dextrose 150 ml @ 100 mls/hr Q24H IV Last administered on 17:02; Start 11/07/16 at 17:00; Stop 11/11/16 at 09:31; Status DC Ondansetron HCl (Zofran) 4 mg PRN Q8HRS PRN IV NAUSEA/VOMITING; Start 11/07/16 at 18:45; Stop 11/08/16 at 18:44; Status DC Insulin Human Regular 150 unit/ Sodium Chloride 151.5 ml @ 0 mls/hr CONT PRN PRN IV PER PROTOCOL Last administered on 11/07/16 19:59; Start 11/07/16 at 19:30 ; Stop 11/08/16 at 06:06; Status DC Sodium Bicarbonate 50 meq/Sodium Chloride 1,050 ml @ 500 mls/hr Q2H6M PRN IV Infuse for pH < 6.95; Start 11/07/16 at 22:30; Stop 11/07/16 at 22:30; Status DC Sodium Bicarbonate 50 meq/Sodium Chloride 1,050 ml @ 500 mls/hr PRN Q2HR PRN IV Infuse for pH < 6.95; Start 11/07/16 at 22:30; Stop 11/07/16 at 22:30; Status DC Sodium Bicarbonate 50 meq/Sodium Chloride 1,050 ml @ 500 mls/hr PRN Q2HR PRN IV Infuse for pH < 6.95 Last administered on 11/07/16 23:25; Start 11/07/16 at 19 :45; Stop 11/08/16 at 01:59; Status DC Sodium Chloride 1,000 ml @ 1,000 mls/hr 1X ONCE IV Last administered on 20:00; Start 11/07/16 at 20:30; Stop 11/07/16 at 21:29; Status DC Pantoprazole Sodium (Protonix Vial) 40 mg BID IVP Last administered on 07:48; Start 11/07/16 at 21:00; Stop 11/10/16 at 11:50; Status DC Potassium Chloride 50 ml @ 50 mls/hr Q1H IV Last administered on 11/08/16 02:08 ; Start 11/08/16 at 00:00; Stop 11/08/16 at 02:59; Status DC Magnesium Sulfate/ Dextrose 100 ml @ 25 mls/hr 1X ONCE IV Last administered on 11/08/16 00:12; Start 11/07/16 at 23:30; Stop 11/08/16 at 03:29; Status DC Haloperidol Lactate (Haldol) 2 mg PRN Q2HRS PRN IVP AGITATION; Start 11/07/16 at 23:15 Sodium Chloride 1,000 ml @ 250 mls/hr Q4H IV Last administered on 11/08/16 00: 08; Start 11/07/16 at 23:30; Stop 11/08/16 at 02:53; Status DC Sodium Phosphate 20 mmol/Dextrose 256.6667 ml @ 62.5 mls/hr 1X PRN PRN IV SEE COMMENTS Last administered on 11/08/16 00:17; Start 11/07/16 at 23:30; Stop at 06:10; Status DC Midazolam HCl 100 ml @ 0 mls/hr CONT PRN IV SEE I/O RECORD Last administered on 11/08/16 20:55; Start 11/07/16 at 23:30; Stop 11/11/16 at 14:39; Status DC Dextrose/Sodium Chloride 1,000 ml @ 250 mls/hr Q4H IV Last administered on 11/08 07:07; Start 11/08/16 at 03:00; Stop 11/08/16 at 11:28; Status DC Sodium Phosphate 20 mmol/Dextrose 256.6667 ml @ 64.167 m... 1X ONCE IV Last administered on 11/08/16 05:46; Start 11/08/16 at 06:00; Stop 11/08/16 at 09:59; Status DC Potassium Chloride 100 ml @ 100 mls/hr PRN Q1HR PRN IV SEE COMMENTS; Start 11/08/16 at 06:00; Stop 11/08/16 at 06:07; Status DC Insulin Detemir (Levemir) 48 units QHS SQ Last administered on 11/09/16 21:07; Start 11/08/16 at 21:00; Stop 11/10/16 at 08:52; Status DC Insulin Aspart (Novolog) 0-7 UNITS Q6HRS SQ Last administered on 11/12/16 12: 43; Start 11/08/16 at 06:00 Dextrose (Dextrose 50%-Water Syringe) 12.5 gm PRN Q15MIN PRN IV SEE COMMENTS; Start 11/08/16 at 06:00 Famotidine (Pepcid) 20 mg BID IVP ; Start 11/08/16 at 09:00; Stop 11/08/16 at 09: 00; Status DC Enoxaparin Sodium (Lovenox 40mg Syringe) 40 mg Q24H SQ Last administered on 08:27; Start 11/08/16 at 09:00 Insulin Aspart (Novolog) 17 units TIDAC SQ Last administered on 11/11/16 11:48 ; Start 11/08/16 at 11:30; Stop 11/12/16 at 09:09; Status DC Insulin Aspart (Novolog) 20 units 1X ONCE SQ Last administered on 11/08/16 09: 27; Start 11/08/16 at 09:15; Stop 11/08/16 at 09:16; Status DC Insulin Detemir (Levemir) 48 units QHS SQ ; Start 11/08/16 at 21:00; Status UNV Dextrose/Sodium Chloride 1,000 ml @ 250 mls/hr Q4H IV Last administered on 11/09 07:44; Start 11/08/16 at 11:15; Stop 11/09/16 at 11:08; Status DC Dextrose 250 ml @ 75 mls/hr 1X ONCE IV Last administered on 11/08/16 16:45; Start 11/08/16 at 16:45; Stop 11/08/16 at 20:04; Status DC Labetalol HCl (Normodyne) 20 mg PRN Q2HR PRN IVP HYPERTENSION, SEE COMMENTS Last administered on 11/09/16 15:17; Start 11/08/16 at 17:30 Potassium Chloride 50 ml @ 50 mls/hr Q1H IV Last administered on 11/09/16 10:07 ; Start 11/09/16 at 07:00; Stop 11/09/16 at 10:59; Status DC Naloxone HCl (Narcan) 2 mg STK-MED ONCE .ROUTE ; Start 11/07/16 at 16:50; Stop at 08:30; Status DC Chlorhexidine Gluconate (Peridex) 15 ml BID SWSP ; Start 11/09/16 at 21:00; Stop 11/09/16 at 21:00; Status DC Potassium Chloride 50 ml @ 50 mls/hr Q1H IV Last administered on 11/09/16 12:32 ; Start 11/09/16 at 11:30; Stop 11/09/16 at 13:29; Status DC Levofloxacin/ Dextrose 100 ml @ 100 mls/hr Q24H IV ; Start 11/09/16 at 11:15; Status UNV Sodium Bicarbonate 50 meq 1X ONCE IV Last administered on 11/09/16 13:29; Start 11/09/16 at 13:30; Stop 11/09/16 at 13:31; Status DC Morphine Sulfate 2 mg PRN Q2HR PRN IV PAIN Last administered on 11/11/16 21:45 ; Start 11/09/16 at 15:15 Potassium Chloride 50 ml @ 25 mls/hr PRN Q2HRS PRN IV PER PROTOCOL; Start at 19:45 Potassium Chloride 50 ml @ 25 mls/hr Q2H PRN IV PER PROTOCOL; Start 11/09/16 at 19:45 Potassium Chloride 50 ml @ 25 mls/hr PRN Q2HRS PRN IV PER PROTOCOL; Start at 19:45 Potassium Chloride 50 ml @ 50 mls/hr Q1H IV Last administered on 11/09/16 23:44 ; Start 11/09/16 at 19:45; Stop 11/09/16 at 23:44; Status DC Potassium Chloride 50 ml @ 50 mls/hr Q1H IV Last administered on 11/10/16 07:16 ; Start 11/10/16 at 05:00; Stop 11/10/16 at 08:59; Status DC Dextrose 250 ml @ 999 mls/hr 1X ONCE IV Last administered on 11/10/16 00:00; Start 11/10/16 at 00:00; Stop 11/10/16 at 05:30; Status DC Dextrose 500 ml @ 999 mls/hr 1X ONCE IV Last administered on 11/10/16 05:29; Start 11/10/16 at 05:30; Stop 11/10/16 at 06:00; Status DC Dextrose 250 ml @ 999 mls/hr 1X ONCE IV Last administered on 11/10/16 06:15; Start 11/10/16 at 06:15; Stop 11/10/16 at 06:30; Status DC Magnesium Sulfate/ Dextrose 50 ml @ 25 mls/hr 1X ONCE IV Last administered on 11/10/16 07:48; Start 11/10/16 at 08:00; Stop 11/10/16 at 09:59; Status DC Insulin Detemir (Levemir) 35 units QHS SQ Last administered on 11/10/16 21:49; Start 11/10/16 at 21:00; Stop 11/11/16 at 12:00; Status DC Pantoprazole Sodium (Protonix) 40 mg DAILYAC PO Last administered on 11/11/16 07:30; Start 11/11/16 at 07:30 Nicotine (Nicoderm Cq 14mg) 1 patch DAILY TD Last administered on 11/11/16 08: 28; Start 11/10/16 at 17:00 Cephalexin HCl (Keflex) 500 mg QID PO Last administered on 11/11/16 21:44; Start 11/11/16 at 09:30 Insulin Detemir (Levemir) 30 units QHS SQ Last administered on 11/11/16 21:53 ; Start 11/11/16 at 21:00; Stop 11/12/16 at 09:09; Status DC Glucose (Insta-Glucose) 15 gm STK-MED ONCE .ROUTE ; Start 11/12/16 at 08:29; Stop 11/12/16 at 08:30; Status DC Glucose (Insta-Glucose) 15 gm 1X STAT PO Last administered on 11/12/16 08:30 ; Start 11/12/16 at 08:38; Stop 11/12/16 at 08:43; Status DC Insulin Aspart (NovoLOG) 15 units TIDAC SQ Last administered on 11/12/16 12:41 ; Start 11/12/16 at 11:30 Insulin Detemir (Levemir) 23 units QHS SQ ; Start 11/12/16 at 21:00 Active Scripts Active Klor-Con M20 (Potassium Chloride) 20 Meq Tab.er.prt 20 Meq PO BIDWMEALS Reported Apidra Solostar (Insulin Glulisine) 100 Unit/1 Ml Insuln.pen 17 Unit SQ TIDACHC Lantus Solostar (Insulin Glargine,Hum.rec.anlog) 100 Unit/1 Ml Insuln.pen 48 Unit SQ QHS Spironolactone 25 Mg Tablet 25 Mg PO DAILY Gabapentin 400 Mg Capsule 400 Mg PO DAILY Ramipril 2.5 Mg Capsule 2.5 Mg PO DAILY Levothyroxine Sodium 75 Mcg Tablet 75 Mcg PO DAILYAC Fenofibrate 160 Mg Tablet 160 Mg PO DAILY Lisinopril 20 Mg Tablet 20 Mg PO DAILY Furosemide 20 Mg Tablet 20 Mg PO QODAY Hydrochlorothiazide Tablet (Hydrochlorothiazide) 25 Mg Tablet 25 Mg PO DAILY Atorvastatin Calcium 10 Mg Tablet 10 Mg PO DAILY Vitals/I & O Vital Sign - Last 24 Hours 11/11/16 11/11/16 11/11/16 11/11/16 15:00 19:00 19:55 23:00 Temp 97.9 98.1 98.6 97.9 98.1 98.6 Pulse 110 102 95 Resp 20 20 22 B/P (MAP) 113/67 (82) 124/73 (90) 112/78 (89) Pulse Ox 95 96 97 O2 Delivery Room Air Room Air Room Air Room Air O2 Flow Rate 3.0 11/12/16 11/12/16 11/12/16 03:00 07:00 11:00 Temp 98.1 97.8 98.7 98.1 97.8 98.7 Pulse 88 87 92 Resp 18 16 18 B/P (MAP) 124/71 (88) 119/84 (96) 117/89 (98) Pulse Ox 96 98 92 O2 Delivery Room Air Room Air Room Air Intake and Output 11/11/16 11/11/16 11/12/16 15:00 23:00 07:00 Intake Total 500 ml 1250 ml 200 ml Output Total 1000 ml 625 ml Balance 500 ml 250 ml -425 ml JAMIR DEL REAL MD November 12, 2016 13:08
[2016-11-12] MEDS: MORPHINE SULFATE 2 MG/ML DISP.SYRIN. IV PRN ×2 (13:15→20:43)
[2016-11-12] MEDS: NICOTINE 14MG PATCH. TD SCH (13:36)
[2016-11-12] MEDS: ENOXAPARIN 40 MG/0.4 ML SYRINGE. SQ SCH (14:00)
[2016-11-12 15:00] VITALS: BP 117/85
[2016-11-12 19:00] VITALS: BP 116/75
[2016-11-12] MEDS: INSULIN DETEMIR 300 UNITS/3 ML INSULN.PEN. SQ SCH (21:18)
[2016-11-12 23:00] VITALS: BP 123/91
[2016-11-13 03:00] VITALS: BP 140/94
[2016-11-13] MEDS: INSULIN ASPART 300 UNITS/3 ML INSULN.PEN SQ SCH ×8 (05:39→21:44)
[2016-11-13] MEDS: PANTOPRAZOLE 40 MG TABLET.DR. PO SCH (06:16)
[2016-11-13 07:00] VITALS: BP 120/89
[2016-11-13] MEDS: CEPHALEXIN 250 MG CAPSULE. PO SCH ×4 (08:08→20:44)
[2016-11-13] MEDS: NICOTINE 14MG PATCH. TD SCH (08:09)
[2016-11-13] MEDS: ENOXAPARIN 40 MG/0.4 ML SYRINGE. SQ SCH (08:09)
--- NOTE | 2016-11-13 09:59 | PDOC ---
Subjective: Subjective: Doing okay. Now occasional right-sided pain, random. Still eating w/o issue. No n/v, bleeding. Objective: Vital Signs: Vital Signs Date Time Temp Pulse Resp B/P (MAP) Pulse Ox O2 Delivery O2 Flow Rate FiO2 11/13/16 07:00 98.1 95 18 120/89 (99) 100 Room Air 98.1 11/12/16 13:45 3.0 Labs: Laboratory Tests Test 11/12/16 11:15 11/12/16 16:33 11/12/16 20:37 11/13/16 05:32 Glucose (Fingerstick) 250 mg/dL (70-99) 87 mg/dL (70-99) 172 mg/dL (70-99) 180 mg/dL (70-99) Test 11/13/16 07:30 Glucose (Fingerstick) 189 mg/dL (70-99) PE: GEN: NAD, up to chair LUNGS: CTAB HEART: RRR, no chest wall tenderness ABD: NABS, S/ND/NT NEURO/PSYCH: A & O 3 A/P: Coffee-ground emesis - no recurrence -- Stable per GI. Cotninue PPI. DC/transfer per primary. BART PARKS November 13, 2016 09:59
[2016-11-13] MEDS ORDERED: DEXTROSE ORAL GEL 15 GM TUBE. ONE (10:57)
[2016-11-13 11:00] VITALS: BP 122/90
[2016-11-13] MEDS ORDERED: DEXTROSE ORAL GEL 15 GM TUBE. PO ONE (11:00)
--- NOTE | 2016-11-13 11:14 | PDOC ---
PROGRESS NOTES Chief Complaint Chief Complaint Acute respir failure 1. LLL PNA: improving. on Keflex 2. Sepsis: improving 3. DKA: off insulin gtt, gap closed 4. DM2: on levemir and humalog. ISS. very tight control; decrease Levemir dose 30 due to hypoglycemia 5. Acute metabolic acidosis: resolved 6. Acute metabolic encephalopathy: comatose on presentation, requiring emergent intubation; extubated 11/09. resolved 7. Leukocytosis: resolved 8. RAVEN: resolved. 9. Hypokalemia: severe. replete IV/PO 10. Alcoholism: monitor, no W/D sx at this time 11. Tobaccoism: nicotine gum 12. Polysubstance abuse. 13. Prophylaxis: lovenox, PPI 14. Dispo: transfer to [facility] floor History of Present Illness History of Present Illness feels much better, still weak, + Chest Pain, right side. no cough Vitals Vitals Vital Signs Date Time Temp Pulse Resp B/P (MAP) Pulse Ox O2 Delivery O2 Flow Rate FiO2 11/13/16 08:00 Room Air 11/13/16 07:00 98.1 95 18 120/89 (99) 100 98.1 11/12/16 13:45 3.0 Physical Exam General: Alert, Cooperative, No acute distress Heart: Regular rate, No murmurs Lungs: Clear Abdomen: Normal bowel sounds, Soft Extremities: No clubbing Skin: No rashes Labs LABS Laboratory Tests Test 11/12/16 11:15 11/12/16 16:33 11/12/16 20:37 11/13/16 05:32 Glucose (Fingerstick) 250 mg/dL (70-99) 87 mg/dL (70-99) 172 mg/dL (70-99) 180 mg/dL (70-99) Test 11/13/16 07:30 Glucose (Fingerstick) 189 mg/dL (70-99) Review of Systems Review of Systems nausea hypoglycemia Assessment and Plan Assessmemt and Plan Problems Medical Problems: (1) Acute metabolic encephalopathy Status: Acute (2) Acute renal failure Status: Acute (3) Community acquired bacterial pneumonia Status: Acute (4) Diabetic ketoacidosis Status: Acute Problems: Comment Review of Relevant I have reviewed the following items karol (where applicable) has been applied. Labs Laboratory Tests Test 11/11/16 11:29 11/11/16 14:57 11/11/16 15:16 11/11/16 16:34 Glucose (Fingerstick) 179 mg/dL (70-99) 56 mg/dL (70-99) 62 mg/dL (70-99) 72 mg/dL (70-99) Test 11/11/16 21:02 11/12/16 02:57 11/12/16 08:19 11/12/16 09:00 Glucose (Fingerstick) 162 mg/dL (70-99) 250 mg/dL (70-99) 45 mg/dL (70-99) Glucose Level 97 mg/dL (70-99) Test 11/12/16 09:06 11/12/16 11:15 11/12/16 16:33 11/12/16 20:37 Glucose (Fingerstick) 132 mg/dL (70-99) 250 mg/dL (70-99) 87 mg/dL (70-99) 172 mg/dL (70-99) Test 11/13/16 05:32 11/13/16 07:30 Glucose (Fingerstick) 180 mg/dL (70-99) 189 mg/dL (70-99) Laboratory Tests Test 11/12/16 11:15 11/12/16 16:33 11/12/16 20:37 11/13/16 05:32 Glucose (Fingerstick) 250 mg/dL (70-99) 87 mg/dL (70-99) 172 mg/dL (70-99) 180 mg/dL (70-99) Test 11/13/16 07:30 Glucose (Fingerstick) 189 mg/dL (70-99) Microbiology 11/07/16 Blood Culture - Final, Complete NO GROWTH AFTER 5 DAYS 11/08/16 Sputum Culture - Final, Complete 11/08/16 Sputum Result 1 - Final, Complete 11/08/16 Antimicrobic Susceptibility - Final, Complete 11/08/16 Gram Stain - Final, Complete Medications Current Medications Midazolam HCl 100 ml @ As Directed STK-MED ONCE IV ; Start 11/07/16 at 17:24; Stop 11/07/16 at 17:25; Status DC Insulin Human Regular 0 ml @ As Directed STK-MED ONCE IV ; Start 11/07/16 at 17: 34; Stop 11/07/16 at 17:35; Status DC Sodium Chloride 1,000 ml @ 1,000 mls/hr Q1H IV Last administered on 11/07/16 18:07; Start 11/07/16 at 18:00; Stop 11/07/16 at 19:59; Status DC Sodium Bicarbonate 150 meq/Sterile Water 1,150 ml @ 250 mls/hr Q4H36M IV Last administered on 11/07/16 18:31; Start 11/07/16 at 18:30; Stop 11/07/16 at 19:44; Status DC Etomidate (Amidate) 20 mg STK-MED ONCE IV ; Start 11/07/16 at 18:22; Stop at 18:23; Status DC Midazolam HCl (Versed) 5 mg STK-MED ONCE .ROUTE ; Start 11/07/16 at 18:23; Stop 11/07/16 at 18:24; Status DC Rocuronium [place] (Zemuron) 50 mg STK-MED ONCE .ROUTE ; Start 11/07/16 at 18:23 ; Stop 11/07/16 at 18:24; Status DC Midazolam HCl 100 ml @ 0 mls/hr 1X ONCE IV Last administered on 11/07/16 18:42 ; Start 11/07/16 at 18:45; Stop 11/07/16 at 18:46; Status DC Levofloxacin/ Dextrose (Levaquin Per Pharmacy) 1 each PRN DAILY PRN MC SEE COMMENTS; Start 11/07/16 at 18:45; Stop 11/10/16 at 09:17; Status DC Levofloxacin/ Dextrose 150 ml @ 100 mls/hr Q24H IV Last administered on 17:02; Start 11/07/16 at 17:00; Stop 11/11/16 at 09:31; Status DC Ondansetron HCl (Zofran) 4 mg PRN Q8HRS PRN IV NAUSEA/VOMITING; Start 11/07/16 at 18:45; Stop 11/08/16 at 18:44; Status DC Insulin Human Regular 150 unit/ Sodium Chloride 151.5 ml @ 0 mls/hr CONT PRN PRN IV PER PROTOCOL Last administered on 11/07/16 19:59; Start 11/07/16 at 19:30 ; Stop 11/08/16 at 06:06; Status DC Sodium Bicarbonate 50 meq/Sodium Chloride 1,050 ml @ 500 mls/hr Q2H6M PRN IV Infuse for pH < 6.95; Start 11/07/16 at 22:30; Stop 11/07/16 at 22:30; Status DC Sodium Bicarbonate 50 meq/Sodium Chloride 1,050 ml @ 500 mls/hr PRN Q2HR PRN IV Infuse for pH < 6.95; Start 11/07/16 at 22:30; Stop 11/07/16 at 22:30; Status DC Sodium Bicarbonate 50 meq/Sodium Chloride 1,050 ml @ 500 mls/hr PRN Q2HR PRN IV Infuse for pH < 6.95 Last administered on 11/07/16 23:25; Start 11/07/16 at 19 :45; Stop 11/08/16 at 01:59; Status DC Sodium Chloride 1,000 ml @ 1,000 mls/hr 1X ONCE IV Last administered on 20:00; Start 11/07/16 at 20:30; Stop 11/07/16 at 21:29; Status DC Pantoprazole Sodium (Protonix Vial) 40 mg BID IVP Last administered on 07:48; Start 11/07/16 at 21:00; Stop 11/10/16 at 11:50; Status DC Potassium Chloride 50 ml @ 50 mls/hr Q1H IV Last administered on 11/08/16 02:08 ; Start 11/08/16 at 00:00; Stop 11/08/16 at 02:59; Status DC Magnesium Sulfate/ Dextrose 100 ml @ 25 mls/hr 1X ONCE IV Last administered on 11/08/16 00:12; Start 11/07/16 at 23:30; Stop 11/08/16 at 03:29; Status DC Haloperidol Lactate (Haldol) 2 mg PRN Q2HRS PRN IVP AGITATION; Start 11/07/16 at 23:15 Sodium Chloride 1,000 ml @ 250 mls/hr Q4H IV Last administered on 11/08/16 00: 08; Start 11/07/16 at 23:30; Stop 11/08/16 at 02:53; Status DC Sodium Phosphate 20 mmol/Dextrose 256.6667 ml @ 62.5 mls/hr 1X PRN PRN IV SEE COMMENTS Last administered on 11/08/16 00:17; Start 11/07/16 at 23:30; Stop at 06:10; Status DC Midazolam HCl 100 ml @ 0 mls/hr CONT PRN IV SEE I/O RECORD Last administered on 11/08/16 20:55; Start 11/07/16 at 23:30; Stop 11/11/16 at 14:39; Status DC Dextrose/Sodium Chloride 1,000 ml @ 250 mls/hr Q4H IV Last administered on 11/08 07:07; Start 11/08/16 at 03:00; Stop 11/08/16 at 11:28; Status DC Sodium Phosphate 20 mmol/Dextrose 256.6667 ml @ 64.167 m... 1X ONCE IV Last administered on 11/08/16 05:46; Start 11/08/16 at 06:00; Stop 11/08/16 at 09:59; Status DC Potassium Chloride 100 ml @ 100 mls/hr PRN Q1HR PRN IV SEE COMMENTS; Start 11/08/16 at 06:00; Stop 11/08/16 at 06:07; Status DC Insulin Detemir (Levemir) 48 units QHS SQ Last administered on 11/09/16 21:07; Start 11/08/16 at 21:00; Stop 11/10/16 at 08:52; Status DC Insulin Aspart (Novolog) 0-7 UNITS Q6HRS SQ Last administered on 11/12/16 12: 43; Start 11/08/16 at 06:00 Dextrose (Dextrose 50%-Water Syringe) 12.5 gm PRN Q15MIN PRN IV SEE COMMENTS; Start 11/08/16 at 06:00 Famotidine (Pepcid) 20 mg BID IVP ; Start 11/08/16 at 09:00; Stop 11/08/16 at 09: 00; Status DC Enoxaparin Sodium (Lovenox 40mg Syringe) 40 mg Q24H SQ Last administered on 08:09; Start 11/08/16 at 09:00 Insulin Aspart (Novolog) 17 units TIDAC SQ Last administered on 11/11/16 11:48 ; Start 11/08/16 at 11:30; Stop 11/12/16 at 09:09; Status DC Insulin Aspart (Novolog) 20 units 1X ONCE SQ Last administered on 11/08/16 09: 27; Start 11/08/16 at 09:15; Stop 11/08/16 at 09:16; Status DC Insulin Detemir (Levemir) 48 units QHS SQ ; Start 11/08/16 at 21:00; Status UNV Dextrose/Sodium Chloride 1,000 ml @ 250 mls/hr Q4H IV Last administered on 11/09 07:44; Start 11/08/16 at 11:15; Stop 11/09/16 at 11:08; Status DC Dextrose 250 ml @ 75 mls/hr 1X ONCE IV Last administered on 11/08/16 16:45; Start 11/08/16 at 16:45; Stop 11/08/16 at 20:04; Status DC Labetalol HCl (Normodyne) 20 mg PRN Q2HR PRN IVP HYPERTENSION, SEE COMMENTS Last administered on 11/09/16 15:17; Start 11/08/16 at 17:30 Potassium Chloride 50 ml @ 50 mls/hr Q1H IV Last administered on 11/09/16 10:07 ; Start 11/09/16 at 07:00; Stop 11/09/16 at 10:59; Status DC Naloxone HCl (Narcan) 2 mg STK-MED ONCE .ROUTE ; Start 11/07/16 at 16:50; Stop at 08:30; Status DC Chlorhexidine Gluconate (Peridex) 15 ml BID SWSP ; Start 11/09/16 at 21:00; Stop 11/09/16 at 21:00; Status DC Potassium Chloride 50 ml @ 50 mls/hr Q1H IV Last administered on 11/09/16 12:32 ; Start 11/09/16 at 11:30; Stop 11/09/16 at 13:29; Status DC Levofloxacin/ Dextrose 100 ml @ 100 mls/hr Q24H IV ; Start 11/09/16 at 11:15; Status UNV Sodium Bicarbonate 50 meq 1X ONCE IV Last administered on 11/09/16 13:29; Start 11/09/16 at 13:30; Stop 11/09/16 at 13:31; Status DC Morphine Sulfate 2 mg PRN Q2HR PRN IV PAIN Last administered on 11/12/16 13:15 ; Start 11/09/16 at 15:15 Potassium Chloride 50 ml @ 25 mls/hr PRN Q2HRS PRN IV PER PROTOCOL; Start at 19:45 Potassium Chloride 50 ml @ 25 mls/hr Q2H PRN IV PER PROTOCOL; Start 11/09/16 at 19:45 Potassium Chloride 50 ml @ 25 mls/hr PRN Q2HRS PRN IV PER PROTOCOL; Start at 19:45 Potassium Chloride 50 ml @ 50 mls/hr Q1H IV Last administered on 11/09/16 23:44 ; Start 11/09/16 at 19:45; Stop 11/09/16 at 23:44; Status DC Potassium Chloride 50 ml @ 50 mls/hr Q1H IV Last administered on 11/10/16 07:16 ; Start 11/10/16 at 05:00; Stop 11/10/16 at 08:59; Status DC Dextrose 250 ml @ 999 mls/hr 1X ONCE IV Last administered on 11/10/16 00:00; Start 11/10/16 at 00:00; Stop 11/10/16 at 05:30; Status DC Dextrose 500 ml @ 999 mls/hr 1X ONCE IV Last administered on 11/10/16 05:29; Start 11/10/16 at 05:30; Stop 11/10/16 at 06:00; Status DC Dextrose 250 ml @ 999 mls/hr 1X ONCE IV Last administered on 11/10/16 06:15; Start 11/10/16 at 06:15; Stop 11/10/16 at 06:30; Status DC Magnesium Sulfate/ Dextrose 50 ml @ 25 mls/hr 1X ONCE IV Last administered on 11/10/16 07:48; Start 11/10/16 at 08:00; Stop 11/10/16 at 09:59; Status DC Insulin Detemir (Levemir) 35 units QHS SQ Last administered on 11/10/16 21:49; Start 11/10/16 at 21:00; Stop 11/11/16 at 12:00; Status DC Pantoprazole Sodium (Protonix) 40 mg DAILYAC PO Last administered on 11/13/16 06:16; Start 11/11/16 at 07:30 Nicotine (Nicoderm Cq 14mg) 1 patch DAILY TD Last administered on 11/13/16 08: 09; Start 11/10/16 at 17:00 Cephalexin HCl (Keflex) 500 mg QID PO Last administered on 11/13/16 08:08; Start 11/11/16 at 09:30 Insulin Detemir (Levemir) 30 units QHS SQ Last administered on 11/11/16 21:53 ; Start 11/11/16 at 21:00; Stop 11/12/16 at 09:09; Status DC Glucose (Insta-Glucose) 15 gm STK-MED ONCE .ROUTE ; Start 11/12/16 at 08:29; Stop 11/12/16 at 08:30; Status DC Glucose (Insta-Glucose) 15 gm 1X STAT PO Last administered on 11/12/16 08:30 ; Start 11/12/16 at 08:38; Stop 11/12/16 at 08:43; Status DC Insulin Aspart (NovoLOG) 15 units TIDAC SQ Last administered on 11/13/16 08:11 ; Start 11/12/16 at 11:30 Insulin Detemir (Levemir) 23 units QHS SQ Last administered on 11/12/16 21:18 ; Start 11/12/16 at 21:00 Glucose (Insta-Glucose) 15 gm STK-MED ONCE .ROUTE ; Start 11/13/16 at 10:57; Stop 11/13/16 at 10:58; Status DC Glucose (Insta-Glucose) 15 gm 1X ONCE PO ; Start 11/13/16 at 11:00; Stop at 11:02; Status DC Active Scripts Active Klor-Con M20 (Potassium Chloride) 20 Meq Tab.er.prt 20 Meq PO BIDWMEALS Reported Apidra Solostar (Insulin Glulisine) 100 Unit/1 Ml Insuln.pen 17 Unit SQ TIDACHC Lantus Solostar (Insulin Glargine,Hum.rec.anlog) 100 Unit/1 Ml Insuln.pen 48 Unit SQ QHS Spironolactone 25 Mg Tablet 25 Mg PO DAILY Gabapentin 400 Mg Capsule 400 Mg PO DAILY Ramipril 2.5 Mg Capsule 2.5 Mg PO DAILY Levothyroxine Sodium 75 Mcg Tablet 75 Mcg PO DAILYAC Fenofibrate 160 Mg Tablet 160 Mg PO DAILY Lisinopril 20 Mg Tablet 20 Mg PO DAILY Furosemide 20 Mg Tablet 20 Mg PO QODAY Hydrochlorothiazide Tablet (Hydrochlorothiazide) 25 Mg Tablet 25 Mg PO DAILY Atorvastatin Calcium 10 Mg Tablet 10 Mg PO DAILY Vitals/I & O Vital Sign - Last 24 Hours 11/12/16 11/12/16 11/12/16 11/12/16 13:15 13:45 15:00 19:00 Temp 98.5 98.2 98.5 98.2 Pulse 99 90 Resp 20 18 16 B/P (MAP) 117/85 (96) 116/75 (89) Pulse Ox 98 98 95 98 O2 Delivery Room Air Room Air Room Air O2 Flow Rate 3.0 11/12/16 11/12/16 11/12/16 11/12/16 20:15 20:43 21:15 23:00 Temp 97.7 97.7 Pulse 97 Resp 17 16 B/P (MAP) 123/91 (102) Pulse Ox 98 96 O2 Delivery Room Air Room Air Room Air Room Air 11/13/16 11/13/16 11/13/16 03:00 07:00 08:00 Temp 96.6 98.1 96.6 98.1 Pulse 56 95 Resp 18 B/P (MAP) 140/94 (109) 120/89 (99) Pulse Ox 94 100 O2 Delivery Room Air Room Air Room Air Intake and Output 11/12/16 11/12/16 11/13/16 15:00 23:00 07:00 Intake Total 1040 ml Output Total 1250 ml Balance -210 ml JAMIR DEL REAL MD November 13, 2016 11:14
--- NOTE | 2016-11-13 12:28 | PDOC ---
PULMONARY PROGRESS NOTES Subjective sob, is better, has occ cough, back pain extubated 11/09 Vitals Vital Signs Date Time Temp Pulse Resp B/P (MAP) Pulse Ox O2 Delivery O2 Flow Rate FiO2 11/13/16 08:00 Room Air 11/13/16 07:00 98.1 95 18 120/89 (99) 100 98.1 11/12/16 13:45 3.0 ROS: No Nausea General: Alert, No acute distress HEENT: Other (nc at perrl ,nose throat clear) Lungs: Clear Cardiovascular: S1, S2 Abdomen: Soft, Non-tender Neuro Exam: Alert, Oriented Extremities: No Edema Skin: Warm Labs Laboratory Tests Test 11/11/16 14:57 11/11/16 15:16 11/11/16 16:34 11/11/16 21:02 Glucose (Fingerstick) 56 mg/dL (70-99) 62 mg/dL (70-99) 72 mg/dL (70-99) 162 mg/dL (70-99) Test 11/12/16 02:57 11/12/16 08:19 11/12/16 09:00 11/12/16 09:06 Glucose (Fingerstick) 250 mg/dL (70-99) 45 mg/dL (70-99) 132 mg/dL (70-99) Glucose Level 97 mg/dL (70-99) Test 11/12/16 11:15 11/12/16 16:33 11/12/16 20:37 11/13/16 05:32 Glucose (Fingerstick) 250 mg/dL (70-99) 87 mg/dL (70-99) 172 mg/dL (70-99) 180 mg/dL (70-99) Test 11/13/16 07:30 11/13/16 10:51 11/13/16 11:20 11/13/16 11:45 Glucose (Fingerstick) 189 mg/dL (70-99) 45 mg/dL (70-99) 38 mg/dL (70-99) Glucose Level 46 mg/dL (70-99) Test 11/13/16 11:52 Glucose (Fingerstick) 88 mg/dL (70-99) Laboratory Tests Test 11/12/16 16:33 11/12/16 20:37 11/13/16 05:32 11/13/16 07:30 Glucose (Fingerstick) 87 mg/dL (70-99) 172 mg/dL (70-99) 180 mg/dL (70-99) 189 mg/dL (70-99) Test 11/13/16 10:51 11/13/16 11:20 11/13/16 11:45 11/13/16 11:52 Glucose (Fingerstick) 45 mg/dL (70-99) 38 mg/dL (70-99) 88 mg/dL (70-99) Glucose Level 46 mg/dL (70-99) Medications Active Scripts Medications Dose Route/Sig Max Daily Dose Days Date Category Klor-Con M20 (Potassium Chloride) 20 Meq Tab.er.prt 20 Meq PO BIDWMEALS 04/08/16 Rx Apidra Solostar (Insulin Glulisine) 100 Unit/1 Ml Insuln.pen 17 Unit SQ TIDACHC 04/06/16 Reported Lantus Solostar (Insulin Glargine,Hum.rec.anlog) 100 Unit/1 Ml Insuln.pen 48 Unit SQ QHS 04/27/15 Reported Spironolactone 25 Mg Tablet 25 Mg PO DAILY 04/27/15 Reported Gabapentin 400 Mg Capsule 400 Mg PO DAILY 04/27/15 Reported Ramipril 2.5 Mg Capsule 2.5 Mg PO DAILY 04/27/15 Reported Levothyroxine Sodium 75 Mcg Tablet 75 Mcg PO DAILYAC 04/27/15 Reported Fenofibrate 160 Mg Tablet 160 Mg PO DAILY 04/27/15 Reported Lisinopril 20 Mg Tablet 20 Mg PO DAILY 04/27/15 Reported Furosemide 20 Mg Tablet 20 Mg PO QODAY 04/27/15 Reported Hydrochlorothiazide Tablet (Hydrochlorothiazide) 25 Mg Tablet 25 Mg PO DAILY 04/27/15 Reported Atorvastatin Calcium 10 Mg Tablet 10 Mg PO DAILY 04/27/15 Reported Impression . 1. Acute respiratory failure, multifactorial (DKA, encephalopathy, Meth), extubated 11/09. off 02 2. Acute metabolic encephalopathy. resolved 3. Abnormal chest x-ray.increase LLL infiltrate, on antibiotic 4. Pneumonia.LLL 5. Diabetic ketoacidosis. resolved 6. Severe metabolic acidosis, improved 7. Leukocytosis.improved 8. Diabetes mellitus. 9. Legally blind. 10. History of alcohol abuse. 11. low Mg and K Plan . 1. off oxygen 2. PO nutrition 3. antibiotic.PO for total of 10 days 4. no further CG emesis 5. replace K, Mg as needed 8. doing well pulmonary jalloh. monitor BS will sign off but available for any help. ANDRYE TUBBS MD November 13, 2016 12:28
[2016-11-13 15:00] VITALS: BP 123/82
[2016-11-13 19:00] VITALS: BP 111/81
[2016-11-13] MEDS: MORPHINE SULFATE 2 MG/ML DISP.SYRIN. IV PRN (20:49)
[2016-11-13] MEDS: INSULIN DETEMIR 300 UNITS/3 ML INSULN.PEN. SQ SCH (21:42)
[2016-11-13 23:00] VITALS: BP 103/79
[2016-11-14] MEDS: MORPHINE SULFATE 2 MG/ML DISP.SYRIN. IV PRN ×3 (01:58→16:15)
[2016-11-14 03:00] VITALS: BP 114/86
[2016-11-14 07:20] VITALS: BP 128/85
[2016-11-14] MEDS: PANTOPRAZOLE 40 MG TABLET.DR. PO SCH (07:54)
[2016-11-14] MEDS: CEPHALEXIN 250 MG CAPSULE. PO SCH ×3 (07:54→16:15)
[2016-11-14] MEDS: NICOTINE 14MG PATCH. TD SCH (07:54)
[2016-11-14] MEDS: ENOXAPARIN 40 MG/0.4 ML SYRINGE. SQ SCH (07:54)
[2016-11-14] MEDS ORDERED: INSULIN ASPART 300 UNITS/3 ML INSULN.PEN SQ SCH (08:00)
[2016-11-14] MEDS: INSULIN ASPART 300 UNITS/3 ML INSULN.PEN SQ SCH ×5 (08:02→16:12)
[2016-11-14 10:40] VITALS: BP 107/65
--- NOTE | 2016-11-14 13:27 | PDOC ---
PROGRESS NOTES Chief Complaint Chief Complaint Acute respir failure ASSESSMENT AND PLAN: 1. LLL PNA: MSSA in sputum. on Keflex 2. Sepsis: resolved 3. Acute metabolic encephalopathy: comatose on presentation, requiring emergent intubation; extubated 11/09. resolved 4. DKA: resolved 5. DM2: on levemir and humalog, doses adjusted 2/2 hypoglycemia in hospital. ISS. suspect large component of noncompliance 6. Leukocytosis: resolved 7. RAVEN: resolved. 8. Hypokalemia: severe. replete IV/PO 9. Alcoholism: monitor, no W/D sx at this time 10. Tobaccoism: nicotine gum 11. Polysubstance abuse: meth positive UDS 12. Prophylaxis: lovenox, PPI 13. Dispo: home History of Present Illness History of Present Illness doing well, no SOB or CP Vitals Vitals Vital Signs Date Time Temp Pulse Resp B/P (MAP) Pulse Ox O2 Delivery O2 Flow Rate FiO2 11/14/16 13:01 Room Air 11/14/16 10:40 96.3 91 20 107/65 (79) 96 96.3 Physical Exam General: Alert, Cooperative, No acute distress Heart: Regular rate, No murmurs Lungs: Clear Abdomen: Normal bowel sounds, Soft Extremities: No clubbing Skin: No rashes Labs LABS Laboratory Tests Test 11/13/16 16:43 11/13/16 20:57 11/14/16 07:23 11/14/16 12:07 Glucose (Fingerstick) 304 mg/dL (70-99) 150 mg/dL (70-99) 428 mg/dL (70-99) 108 mg/dL (70-99) LILIBETH DIAZ MD November 14, 2016 13:27
[2016-11-14] MEDS ORDERED: CEPH250C PO (13:56)
[2016-11-14] MEDS ORDERED: INSU100I27 SQ (13:56)
[2016-11-14] MEDS ORDERED: INSU100I17 SQ (13:56)
[2016-11-14 14:46] VITALS: BP 138/87
--- NOTE | 2016-11-18 20:44 | DS ---
DATE OF DISCHARGE: 11/14/2016 CHIEF COMPLAINT: Acute respiratory failure, pneumonia. HOSPITAL COURSE: The patient is a 46-year-old gentleman who presented with acute respiratory failure to the Emergency Room. He was diagnosed with a left lower lobe pneumonia, MSSA was identified in the sputum. He was therefore placed on Keflex as per ID recommendations. He initially required intubation, but was successfully extubated within 48 hours. Multiple medical issues otherwise were addressed including DKA. Diabetes required further adjustment on his Levemir and Humalog in the hospital. Also had a history of alcoholism, however, he did not experience any withdrawal symptoms. PHYSICAL EXAMINATION: Please refer to note from same date. DISCHARGE DATE: 11/14/2016. DISCHARGE DIAGNOSES: Left lower lobe pneumonia, polysubstance abuse, diabetic ketoacidosis. DISCHARGE DISPOSITION: To home. DISCHARGE CONDITION: Improved. DISCHARGE MEDICATIONS: Please refer to MAR. DISCHARGE INSTRUCTIONS: The patient will follow up with his PCP in 1 week. LILIBETH DIAZ MD DR: ISAMAR/nts JOB#: [id number] / [id number] SHAILESH Marcos MDD
== END 2016-11-14 16:58 | disposition home or self-care (01) | DRG 871 ==
LOC: ER 16:53 → 1 WEST ICU 17:59 → 5 NORTH 11-10 14:23
PROVIDERS: ADMIT Internal Medicine; ATTEND Internal Medicine
PROC: 5A1945Z Respiratory Ventilation, 24-96 Consecutive Hours (ICD-10-PCS; principal; 2016-11-07)
PROC: 0BH17EZ Insertion of Endotracheal Airway into Trachea, Via Natural or Artificial Opening (ICD-10-PCS; 2016-11-07)
DX: A41.9 Sepsis, unspecified organism (principal); E13.10 Other specified diabetes mellitus with ketoacidosis without coma; G93.41 Metabolic encephalopathy; J15.211 Pneumonia due to Methicillin susceptible Staphylococcus aureus; J96.00 Acute respiratory failure, unspecified whether with hypoxia or hypercapnia; N17.9 Acute kidney failure, unspecified; E11.39 Type 2 diabetes mellitus with other diabetic ophthalmic complication; E11.649 Type 2 diabetes mellitus with hypoglycemia without coma; F10.20 Alcohol dependence, uncomplicated; H54.8 Legal blindness, as defined in USA; K21.9 Gastro-esophageal reflux disease without esophagitis; K29.60 Other gastritis without bleeding; F17.210 Nicotine dependence, cigarettes, uncomplicated; E87.6 Hypokalemia; M54.9 Dorsalgia, unspecified; F41.9 Anxiety disorder, unspecified; F19.90 Other psychoactive substance use, unspecified, uncomplicated; Z82.0 Family history of epilepsy and other diseases of the nervous system; Z82.49 Family history of ischemic heart disease and other diseases of the circulatory system; Z88.0 Allergy status to penicillin; Z79.899 Other long term (current) drug therapy; Z79.4 Long term (current) use of insulin; Z79.2 Long term (current) use of antibiotics
CPT/HCPCS: 31500; 36415; 36556; 36600; 51702; 70450; 71010; 80048; 80053; 81001; 82140; 82805; 82947; 82962; 83605; 83735; 84100; 85007; 85027; 86850; 86900; 86901; 87040; 87070; 87186; 87205; 87641; 93005; 94002; 94003; 94640; 96365; 96368; C9113; G0481; J1650; J1815; J1956; J2250; J2270; J2310; J3475; J3480; J3490; J7030; J7042; J7060; 97112; 97116; 97530; 97535; 99291-25

== ENCOUNTER 2017-01-11 17:27 | Emergency (ER) | payer MEDICARE ==
[~2017-01-11] VITALS: Ht 177.8 cm; Wt 72.6 kg
[~2017-01-11 17:27] MED LIST changes: +CEPH250C PO; +INSU100I17 SQ; +INSU100I27 SQ; -NALOXONE 2 MG/2 ML DISP.SYRIN. ONE
[2017-01-11] MEDS ORDERED: KETOROLAC TROMETHAMINE 30 MG/ML INJ. IV ONE (18:15)
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
[2017-01-11] MEDS ORDERED: HYDR-971 PO (20:23)
[2017-01-11 20:30] VITALS: BP 114/78
== END 2017-01-11 21:00 | disposition home or self-care (01) ==
LOC: ER 17:27
DX: M25.511 Pain in right shoulder (principal); M54.5 Low back pain; E11.9 Type 2 diabetes mellitus without complications; F10.10 Alcohol abuse, uncomplicated; H54.8 Legal blindness, as defined in USA; F12.10 Cannabis abuse, uncomplicated; Z59.0 Homelessness; Y90.9 Presence of alcohol in blood, level not specified; Z88.8 Allergy status to other drugs, medicaments and biological substances; Z88.1 Allergy status to other antibiotic agents
CPT/HCPCS: 96374; 99284; J1885